=== PATIENT | male | born 1945 | race Caucasian/White ===

== ENCOUNTER 2017-11-28 14:49 | Inpatient (IN) | payer MEDICARE, OTHER ==
[~2017-11-28] VITALS: Ht 185.4 cm; Wt 82.4 kg
[~2017-11-28 14:49] MED LIST: DUTA0.5C11 PO; RIVA10TA PO; TAM04C PO
[2017-11-28] MEDS ORDERED: SODIUM CHLORIDE 0.9% 1,000 ML IV ONE (14:56)
[2017-11-28 16:15] LABS: Basophils # (auto) 0.1 uL; Basophils % (auto) 1.1 % (0.0-2.0); Eosinophils # (auto) 0.1 uL; Hematocrit 40.8 % (41.0-53.0); Hemoglobin 13.5 g/dL (13.5-17.5); Lymphocytes # (auto) 1.1 uL; Lymphocytes % (auto) 19.5 % (10.0-50.0); Mean Corpuscular Hemoglobin 32.6 pg (28.0-32.0); Mean Corpuscular Hgb Conc. 33.2 g/dL (32.0-36.0); Mean Corpuscular Volume 98.2 fL (80.0-100.0); Monocytes # (auto) 0.2 uL; Monocytes % (auto) 4.2 % (0.0-12.0); Neutrophils # (auto) 4.3 uL; Neutrophils % (auto) 74.2 % (37.0-80.0); Nucleated Red Blood Cells % 0.1 %; Platelet Count (auto) 312 10^3/uL (140-450); Red Blood Cells 4.15 10^6/uL (4.5-5.90); White Blood Cell 5.8 10^3/uL (4.4-10.8)
[2017-11-28] MEDS ORDERED: ASPirin-EC 81 mg tab PO ONE (16:15)
[2017-11-28] MEDS ORDERED: ACETAMINOPHEN 325 MG TAB PO PRN (16:15)
[2017-11-28] MEDS ORDERED: TEMAZEPAM 15 MG CAP PO PRN (16:15)
[2017-11-28] MEDS ORDERED: DOCUSATE SOD 100 MG CAP PO PRN (16:15)
[2017-11-28] MEDS ORDERED: NITROGLYCERIN 0.4 MG SL TAB SL PRN (16:15)
[2017-11-28] MEDS ORDERED: HYDROcodone-ACET 5/325MG TAB PO PRN (16:15)
[2017-11-28] MEDS ORDERED: ONDANSETRON HCL 4 MG/2 ML VIAL IV PRN (16:15)
[2017-11-28] MEDS ORDERED: MORPHINE SULFATE 10 MG/ML INJ 1ML SDV IV PRN ×2 (16:15)
[2017-11-28 16:26] LABS: Urine Bacteria NONE SEEN /hpf (None Seen); Urine Blood Negative /uL (Negative); Urine Mucus FEW (None Seen); Urine Specific Gravity 1.025 (1.001-1.035); Urine WBC 2 /hpf (0 - 3)
[2017-11-28 16:32] LABS: Alanine Aminotransferase 30 U/L (16-61); Albumin 3.1 g/dL (3.4-5.0); Anion Gap 8 (5-15); Aspartate Aminotransferase 58 U/L (15-37); BUN/Creatinine Ratio 19.7; Blood Urea Nitrogen 23 mg/dL (7-18); Carbon Dioxide 26 mmol/L (21-32); Chloride 106 mmol/L (98-107); GFR African American 78 mL/min; GFR Non-African American 65 mL/min; Glucose 105 mg/dL (74-106); Potassium 4.3 mmol/L (3.5-5.1); Sodium 140 mmol/L (136-145)
[2017-11-28 16:40] LABS: Alkaline Phosphatase 61 U/L (45-117); Bilirubin, Total 1.2 mg/dL (0.2-1.0); Total Protein 7.7 g/dL (6.4-8.2)
[2017-11-28] MEDS: TAMSULOSIN HYDROCHLORIDE 0.4 MG CAP PO SCH (17:01)
[2017-11-28] MEDS: ENOXAPARIN SOD 40 MG/0.4 ML SYRINGE SC SCH (17:01)
[2017-11-28 17:17] LABS: INR 1.11 (0.9-1.15); Prothrombin Time 12.1 sec (9.37-12.3)
[2017-11-28] MEDS: BOOST PLUS 8 ounce PO SCH (18:00)
[2017-11-28] MEDS: ATORVASTATIN 20 MG TAB PO SCH (20:38)
[2017-11-28] MEDS: SODIUM CHLOR 0.9% PF (SALINE LOCK) 10ML VIAL IV SCH (20:38)
[2017-11-28] MEDS: FAMOTIDINE 20 MG TAB PO SCH (20:38)
[2017-11-28 22:00] VITALS: BP 96/54
[2017-11-29] MEDS: SODIUM CHLOR 0.9% PF (SALINE LOCK) 10ML VIAL IV SCH ×3 (04:58→23:03)
[2017-11-29 05:37] VITALS: BP 111/59
[2017-11-29] MEDS: BOOST PLUS 8 ounce PO SCH ×3 (07:46→17:17)
[2017-11-29 08:00] VITALS: BP 136/86
[2017-11-29 09:00] VITALS: BP 136/86
[2017-11-29 09:11] LABS: Basophils # (auto) 0 uL; Basophils % (auto) 0.6 % (0.0-2.0); Eosinophils # (auto) 0 uL; Eosinophils % (auto) 0.7 % (0.0-7.0); Hematocrit 42.1 % (41.0-53.0); Hemoglobin 14.2 g/dL (13.5-17.5); Lymphocytes # (auto) 1.3 uL; Lymphocytes % (auto) 24.4 % (10.0-50.0); Mean Corpuscular Hemoglobin 32.7 pg (28.0-32.0); Mean Corpuscular Hgb Conc. 33.6 g/dL (32.0-36.0); Mean Corpuscular Volume 97.2 fL (80.0-100.0); Monocytes # (auto) 0.2 uL; Monocytes % (auto) 3.9 % (0.0-12.0); Neutrophils # (auto) 3.6 uL; Neutrophils % (auto) 70.4 % (37.0-80.0); Nucleated Red Blood Cells % 0.1 %; Platelet Count (auto) 278 10^3/uL (140-450); Red Blood Cells 4.33 10^6/uL (4.5-5.90); Red Cell Distribution Width 14.9 % (11.8-14.3); White Blood Cell 5.2 10^3/uL (4.4-10.8)
[2017-11-29 09:16] LABS: Alanine Aminotransferase 28 U/L (16-61); Albumin 3.2 g/dL (3.4-5.0); Alkaline Phosphatase 61 U/L (45-117); Anion Gap 6 (5-15); Aspartate Aminotransferase 35 U/L (15-37); BUN/Creatinine Ratio 19.7; Bilirubin, Total 1.4 mg/dL (0.2-1.0); Blood Urea Nitrogen 23 mg/dL (7-18); Calcium 8.1 mg/dL (8.5-10.1); Carbon Dioxide 27 mmol/L (21-32); Chloride 106 mmol/L (98-107); GFR African American 78 mL/min; GFR Non-African American 65 mL/min; Glucose 89 mg/dL (74-106); Potassium 4.6 mmol/L (3.5-5.1); Sodium 139 mmol/L (136-145); Total Protein 7.8 g/dL (6.4-8.2)
[2017-11-29] MEDS: FAMOTIDINE 20 MG TAB PO SCH ×3 (10:00→22:00)
[2017-11-29] MEDS: AVODART 0.5 MG PO SCH (10:00)
[2017-11-29] MEDS: MULTIPLE VITAMIN TAB PO SCH (10:04)
[2017-11-29] MEDS: ASPirin-EC 81 mg tab PO SCH (10:05)
[2017-11-29] MEDS: ENOXAPARIN SOD 40 MG/0.4 ML SYRINGE SC SCH (10:05)
[2017-11-29 13:06] VITALS: BP 146/67
[2017-11-29 17:00] VITALS: BP 141/63
[2017-11-29] MEDS: TAMSULOSIN HYDROCHLORIDE 0.4 MG CAP PO SCH (17:21)
[2017-11-29 22:00] VITALS: BP 109/71
[2017-11-29] MEDS: ATORVASTATIN 20 MG TAB PO SCH (23:03)
[2017-11-30 05:00] VITALS: BP 110/62
[2017-11-30] MEDS: SODIUM CHLOR 0.9% PF (SALINE LOCK) 10ML VIAL IV SCH ×2 (06:44→14:00)
[2017-11-30 07:13] LABS: Cholesterol 131 mg/dL (< 200); HDL Cholesterol 35 mg/dL (40-59); LDL Cholesterol 85 mg/dL (< 100); Triglycerides 119 mg/dL (< 150)
[2017-11-30] MEDS: BOOST PLUS 8 ounce PO SCH ×3 (08:00→18:00)
[2017-11-30 09:09] VITALS: BP 106/57
[2017-11-30] MEDS: ASPirin-EC 81 mg tab PO SCH (10:00)
[2017-11-30] MEDS: MULTIPLE VITAMIN TAB PO SCH (10:00)
[2017-11-30] MEDS: FAMOTIDINE 20 MG TAB PO SCH (10:00)
[2017-11-30] MEDS: AVODART 0.5 MG PO SCH (10:00)
[2017-11-30] MEDS: ENOXAPARIN SOD 40 MG/0.4 ML SYRINGE SC SCH (10:31)
[2017-11-30 11:59] VITALS: BP 105/53
[2017-11-30] MEDS ORDERED: CLOP75TA28 PO (16:20)
[2017-11-30] MEDS ORDERED: ASP81EC PO (16:20)
[2017-11-30] MEDS ORDERED: ATOR20TA50 PO (16:20)
[2017-11-30 17:28] VITALS: BP 158/92
[2017-11-30] MEDS: TAMSULOSIN HYDROCHLORIDE 0.4 MG CAP PO SCH (18:00)
== END 2017-11-30 19:00 | disposition home or self-care (01) | DRG 65 ==
LOC: EDBD 14:49 → ER 14:49 → TELE 14:50 → TELE-WESTW 18:08
PROVIDERS: ADMIT Internal Medicine; ATTEND Nurse Practitioner Acute Care
DX: I63.232 Cerebral infarction due to unspecified occlusion or stenosis of left carotid arteries (principal); E44.0 Moderate protein-calorie malnutrition; R65.10 Systemic inflammatory response syndrome (SIRS) of non-infectious origin without acute organ dysfunction; G81.91 Hemiplegia, unspecified affecting right dominant side; E83.51 Hypocalcemia; C94.6 Myelodysplastic disease, not elsewhere classified; D63.8 Anemia in other chronic diseases classified elsewhere; N18.2 Chronic kidney disease, stage 2 (mild); Z96.651 Presence of right artificial knee joint; N40.0 Benign prostatic hyperplasia without lower urinary tract symptoms; Z79.82 Long term (current) use of aspirin; Z79.899 Other long term (current) drug therapy; Z82.49 Family history of ischemic heart disease and other diseases of the circulatory system; Z80.0 Family history of malignant neoplasm of digestive organs; Z68.24 Body mass index [BMI] 24.0-24.9, adult
CPT/HCPCS: 36415; 70450; 70551; 71045; 80053; 80061; 81001; 83880; 84443; 84484; 85025; 85610; 85730; 92610; 93005; 93306; 93886; 96372

== ENCOUNTER 2019-05-03 05:44 | Emergency (ER) | payer MEDICARE, OTHER ==
[~2019-05-03] VITALS: Ht 175.3 cm; Wt 68.0 kg
[~2019-05-03 05:44] MED LIST changes: +ASP81EC PO; +ATOR20TA50 PO; +CLOP75TA28 PO; -RIVA10TA PO
[2019-05-03 07:40] VITALS: BP 141/68
[2019-05-03] MEDS ORDERED: KETOROLAC TROMETH 60MG/2ML VIAL IM ONE (08:00)
[2019-05-03] MEDS: CARISOPRODOL 350 MG TAB PO ONE (08:28)
[2019-05-03] MEDS: KETOROLAC TROMETH 15 mg/ml 1ML VL IV ONE (08:29)
== END 2019-05-03 09:41 | disposition home or self-care (01) ==
LOC: ER 05:44
DX: M51.37 Other intervertebral disc degeneration, lumbosacral region (principal); Z79.01 Long term (current) use of anticoagulants; Z79.82 Long term (current) use of aspirin; Z79.899 Other long term (current) drug therapy
CPT/HCPCS: 72100; 96374; 99283; J1885

== ENCOUNTER 2019-08-06 11:16 | Day surgery (SDC) | payer MEDICARE, OTHER ==
[2019-08-02 13:42] LABS: Basophils # (auto) 0.1 uL; Eosinophils # (auto) 0 uL; Monocytes # (auto) 0.4 uL; Monocytes % (auto) 6.9 % (0.0-12.0); Neutrophils # (auto) 3.4 uL
[2019-08-02 13:43] LABS: Basophils % (auto) 1.1 % (0.0-2.0); Hematocrit 31.5 % (41.0-53.0); Lymphocytes # (auto) 1.6 uL; Lymphocytes % (auto) 29.8 % (10.0-50.0); Neutrophils % (auto) 62.2 % (37.0-80.0); Platelet Count (auto) 168 10^3/uL (140-450); Red Blood Cells 3.25 10^6/uL (4.5-5.90); Red Cell Distribution Width 15.8 % (11.8-14.3); White Blood Cell 5.5 10^3/uL (4.4-10.8)
[2019-08-02 13:53] LABS: INR 1.11 (0.9-1.15); Partial Thromboplastin Time 28.7 sec (23.64-32.05)
[~2019-08-06] VITALS: Ht 177.8 cm; Wt 72.6 kg
[~2019-08-06 11:16] MED LIST changes: -ASP81EC PO; -ATOR20TA50 PO; +CELE200C PO; -CLOP75TA28 PO; +LEVO25TA6 PO
[2019-08-06] MEDS: fentaNYL CITRATE 100 MCG/2 ML VL ONE ×3 (12:52→12:59)
[2019-08-06] MEDS: MIDAZOLAM HCL 5 MG/ML-1ML VIAL ONE ×3 (12:52→12:59)
[2019-08-06 13:49] VITALS: BP 124/58
[2019-08-06] MEDS ORDERED: SODIUM CHLORIDE LOCK 10 ML ONE (14:36)
[2019-08-06] MEDS ORDERED: diphenhdrAMINE HCL 50 MG/1 ML VL ONE (14:37)
== END 2019-08-06 14:03 | disposition home or self-care (01) ==
LOC: GI 11:16
PROVIDERS: ATTEND Internal Medicine Gastroenterology
DX: R10.31 Right lower quadrant pain (principal); R63.4 Abnormal weight loss; K57.30 Diverticulosis of large intestine without perforation or abscess without bleeding; K64.8 Other hemorrhoids; E03.9 Hypothyroidism, unspecified; N40.0 Benign prostatic hyperplasia without lower urinary tract symptoms; D64.9 Anemia, unspecified; M81.0 Age-related osteoporosis without current pathological fracture; M19.90 Unspecified osteoarthritis, unspecified site; Z79.899 Other long term (current) drug therapy; Z96.642 Presence of left artificial hip joint; Z96.651 Presence of right artificial knee joint
CPT/HCPCS: 36415; 45378; 85025; 85610; 85730; J1200; J2250; J3010; J7030; G0500

== ENCOUNTER 2024-12-12 13:11 | Inpatient (IN) | payer MEDICARE, BC ==
[~2024-12-12] VITALS: Ht 177.8 cm; Wt 72.6 kg
[~2024-12-12 13:11] MED LIST changes: -TAM04C PO; +TAMS-35 PO
--- NOTE | 2024-12-12 16:14 | ED.PDOC ---
Chasidy. trauma (HPI) HPI Comments HPI: Poor Historian. HPI: 79 y/o M presents to the ED for CC of right leg pain. Patient endorses on, falling approximately four days ago from a mechanical trip and fall landing on his right side. Patient relays, abrasion to right temporal area. Patient denies LOC, hitting his head, headache, or shortness of breath. No other symptoms or modifying factors at this time. Initial Vital Signs: Temp : 97.9 BP: 136/68 HR: 72 RR: 16 SpO2: 98 Past Medical History: HLD, ENLARGED SPLEEN, HTN, SHINGLES, MULTIPLE MYELOMA Past Surgical History: RIGHT KNEE LEFT HIP Social History: Denies smoking, ETOH, or drug use. Allergies: NKDA REVIEW OF SYSTEMS: CONSTITUTIONAL: Denies acute: fever, diaphoresis, chills, HEAD: Denies acute: headache, photophobia Eyes: Denies acute: Double vision, vision loss, eye pain, eye discharge. EARS: Denies acute: tinnitus, hearing loss, ear discharge, ear pain, THROAT: Denies acute: sore throat, swelling, difficulty swallowing , pain with swallowing, change in voice. NECK: Denies acute: neck pain, neck swelling, stiff neck. HEART: Denies acute : chest pain, palpitations, LUNGS: Denies acute: SOB, wheezing, cough, hemoptysis ABDOMEN: Denies acute: abdominal pain, Nausea, Vomiting, diarrhea, melena , hematemesis, hematochezia SKIN: Denies acute: rash, redness, lesions, itchiness. EXTREMITIES: Denies acute: calf pain, numbness, tingling, weakness, Denies acute: Low back pain. Neuro: Denies acute: focal neurological deficit, motor or sensory focal neurological deficit, tremors, seizure like activity, confusion, dizziness, change in mental status, loss of bowel or bladder function, cauda equina like symptoms. : Denies acute: dysuria, hematuria, flank pain, increase in urinary frequency. PSYCH: Denies acute: hallucination, suicidal ideation, homicidal ideation. PHYSICAL EXAM: General: no acute distress, awake and alert. Head: normocephalic, atraumatic. Minimal right zygomatic arch bruise. Neck: supple, trachea is midline, no swelling. Cervical spine: Palpation of the posterior midline of the cervical spine rev eals no focal swelling, erythema, focal tenderness to palpation. Patient has normal range of motion. Throat: Normal phonation. Eyes:, no erythema, no purulent discharge, no proptosis, no icterus. Heart: regular rate, regular rhythm, no significant murmur appreciated. Lungs: no apparent respiratory distress, Able to speak in full sentences. No wheezing, no rhonchi, no crackles. No stridors Clear to auscultation bilaterally. Abdomen: non tender to palpation, non distended, soft, no guarding, no rebound, + bowel sounds. Neuro: Awake, Alert, oriented to name, self, situation, follows commands GCS=15. Speech is normal. Skin: no petechia, no purpura, no cyanosis, non-pale, not jaundice. Lower extremities: --trace bilateral- Pitting edema no deformity, no focal swelling, no calf TTP. Patient is neurovascularly intact in the affected right lower extremity. Pedal pulses palpable. Motor and sensory are present. Decreased range of motion secondary to right leg pain. No apparent hematoma at the side of the hip. Makes eye contact. moves all four extremities. Face: no apparent facial droop. Ambulating in the ED independently but with pain. No nuchal rigidity, Kernig's sign, Brudzinski's sign, no meningeal signs. ED COURSE: Time Seen by MD: 16:00 Primary Care Provider: ETTA Pack notes: Nurses Notes, Allergies Allergies: Coded Allergies: NO KNOWN ALLERGIES (Unverified , 08/02/19) Home Meds Reported Medications Oxycodone W/ Acetaminophen (Percocet 5/325MG) 1 Tab Tb, 1 TAB PO Q6HR PRN for PAIN SCALE 1 THRU 6, #60 TAB 12/13/24 Gabapentin (NEURONTIN CAPSULE) 300 Mg Cp, 300 MG PO TID, CAP 12/13/24 Levothyroxine Sodium (Levothyroxine Sodium) 100 Mcg Tab, 100 MCG PO QAM for 30 Days, MCG 12/13/24 Metoprolol Succinate (Metoprolol Succinate Er) 25 Mg Tab, 25 MG PO DAILY for 30 Days, MG 12/13/24 Tamsulosin Hcl (Tamsulosin Hcl) 0.4 Mg Cap, 0.4 MG PO EOD for 30 Days, MG 12/13/24 Acyclovir (Acyclovir) 200 Mg Cap, 400 MG PO BID, TAB 12/13/24 Pravastatin Sodium (PRAVACHOL TABLET) 20 Mg Tb, 20 MG PO HS, TAB 12/13/24 Dutasteride (Avodart) 0.5 Mg Cap, 0.5 MG PO EOD, CAP 12/13/24 Discontinued Reported Medications Levothyroxine Sodium (Levothyroxine Sodium) 25 Mcg Tab, 25 MCG PO QAM, MCG 08/02/19 Celecoxib (Celebrex) 200 Mg Cap, 1 CAP PO DAILY PRN for MODERATE PAIN, #30 CAP 2 Refills 08/02/19 Tamsulosin Hcl (Flomax) 0.4 Mg Cap, 5 MG PO DAILY for ANTIADRENERGICS, CAP 02/25/16 Dutasteride (Avodart) 0.5 Mg Cap, 5 MG PO DAILY for ANDROGEN INHIBITORS, CAP 02/25/16 Information Source: Patient, Relative (Child) Mode of Arrival: Wheelchair Severity: Moderate Timing: Days Duration: Since onset Prehospital treatment: None Location: (R) Leg Location of laceration: Face Mechanism: Fall Associated signs and symtoms: None Was a procedure done? Was a procedure done?: No Differential Diagnosis Multiple Trauma: Closed Head Injury, Cardiac Injury, Fractures, Intraabdominal Injury, Pneumothorax, Cerebral Contusion, Pulmonary Contusion, Spine Injury, Tracheal Injury, Urological Injury, Vascular Injury, Abrasions, Contusion, Hematoma Neck Injury: Cervical Muscle Spasm, Cervical Sprain, Cervical Strain X-Ray, Labs, Meds, VS Vital Signs Date Time Temp Pulse Resp B/P (MAP) Pulse Ox O2 Delivery O2 Flow Rate FiO2 12/12/24 22:00 71 18 113/62 (79) 99 12/12/24 20:00 69 12/12/24 19:20 73 18 95 Room Air* 0 21 12/12/24 19:20 98.1 73 18 90/68 (75) 95 98.1 12/12/24 16:58 97.9 72 16 138/68 (91) 98 12/12/24 16:50 73 16 97 Room Air* 0 21 12/12/24 16:50 97.8 73 16 132/61 (84) 97 97.8 Lab Test 12/12/24 20:18 12/12/24 19:25 12/12/24 18:57 12/12/24 18:14 Range/Units Troponin I High Sensitivity 9 9 </=54 ng/L Lactic Acid Level 2.4 *H 0.4-2.0 mmol/L Urine Color Yellow Yellow Urine Clarity Clear Clear Urine pH 5.0 5.0-9.0 Urine Specific [place] 1.025 1.001-1.035 Urine Protein Negative Negative Urine Ketones Negative Negative Urine Blood Negative Negative /uL Urine Nitrite Negative Negative Urine Bilirubin Negative Negative Urine Urobilinogen Normal Negative mg/dL Urine Leukocyte Esterase Negative Negative /uL Urine RBC 1 0 - 3 /hpf Urine Microscopic WBC < 1 0-3 /HPF Urine Squamous Epithelial Cells Few <5 /hpf Urine Bacteria None seen None Seen /hpf Urine Mucus Few None Seen Urine Glucose Normal Normal mg/dL Test 12/12/24 17:06 Range/Units White Blood Count 2.8 L 4.4-10.8 10^3/uL Red Blood Count 3.78 L 4.5-5.90 10^6/uL Hemoglobin 13.4 L 13.5-17.5 g/dL Hematocrit 39.5 L 41.0-53.0 % Mean Corpuscular Volume 104.4 H 80.0-100.0 fL Mean Corpuscular Hemoglobin 35.3 H 28.0-32.0 pg Mean Corpuscular Hemoglobin Concent 33.9 32.0-36.0 g/dL Red Cell Distribution Width 15.4 H 11.8-14.3 % Platelet Count 121 L 140-450 10^3/uL Mean Platelet Volume 8.4 6.9-10.8 fL Neutrophils (%) (Auto) 76.7 37.0-80.0 % Lymphocytes (%) (Auto) 18.4 10.0-50.0 % Monocytes (%) (Auto) 4.7 0.0-12.0 % Eosinophils (%) (Auto) 0.0 0.0-7.0 % Basophils (%) (Auto) 0.2 0.0-2.0 % Neutrophils # (Auto) 2.1 1.6-8.6 10 ^3/uL Lymphocytes # (Auto) 0.5 0.4-5.4 10 ^3/uL Monocytes # (Auto) 0.1 0-1.3 10 ^3/uL Eosinophils # (Auto) 0 0-0.8 10 ^3/uL Basophils # (Auto) 0 0-0.2 10 ^3/uL Nucleated Red Blood Cells 0.1 % Sodium Level 137 136-145 mmol/L Potassium Level 4.9 3.5-5.1 mmol/L Chloride Level 103 98-107 mmol/L Carbon Dioxide Level 25 20-31 mmol/L Anion Gap 9 5-15 Blood Urea Nitrogen 38 H 9-23 mg/dL Creatinine 1.08 0.700-1.30 mg/dL Glomerular Filtration Rate Calc 69 >90 mL/min BUN/Creatinine Ratio 35.2 H 10.0-20.0 Serum Glucose 138 H 74-106 mg/dL Lactic Acid Level 2.1 *H 0.4-2.0 mmol/L Calcium Level 9.3 8.7-10.4 mg/dL Magnesium Level 2.2 1.6-2.6 mg/dL Total Bilirubin 2.4 H 0.2-1.0 mg/dL Aspartate Amino Transferase (AST) 24 13-40 U/L Alanine Aminotransferase (ALT) 30 7-40 U/L Alkaline Phosphatase 60 46-116 U/L Troponin I High Sensitivity 8 </=54 ng/L B-Type Natriuretic Peptide 248.68 0-100 pg/mL Total Protein 6.1 5.7-8.2 g/dL Albumin 4.3 3.2-4.8 g/dL Current Medications Medications (Trade) Dose Ordered Sig/Marcella Route Start Time Stop Time Status Last Admin Sodium Chloride 1,000 ml @ 1,000 mls/hr Q1H ONCE IV 12/12/24 18:45 12/12/24 19:44 DC 12/12/24 18:52 Piperacillin Sod/ Tazobactam Sod 100 ml @ 100 mls/hr ONCE ONCE IV 12/12/24 20:30 12/12/24 21:29 DC 12/12/24 21:18 Sodium Chloride 1,000 ml @ 1,000 mls/hr Q1H ONCE IV 12/12/24 20:30 12/12/24 21:29 DC 12/12/24 21:18 Sodium Chloride 1,000 ml @ 60 mls/hr [id number] IV 12/12/24 20:45 12/12/24 21:[address] [address] Ph: [phone] DIAGNOSTIC IMAGING Diagnostic Imaging Report : [id number] Signed PATIENT: JUANITA AHUJA ACCT: [id number] UNIT: [id number] : 1945 LOC: ER ROOM / BED: / AGE / SEX: 79 / M ADM STATUS: REG ER SERVICE 03 ORDERING PHYSICIAN: NIRANJAN HANSON DO PROCEDURE(s): CXRP - CHEST PORTABLE REASON: fall, r chest pain ORDER NUMBER(s): [id number], ACCESSION NUMBER(s): [id number] CHEST RADIOGRAPH Indication: fall, r chest pain Technique: Single frontal view of the chest was obtained Comparison: None FINDINGS: Lines and Tubes: None Lungs: No focal consolidation. Mild interstitial prominence. Pleura: No effusion. No pneumothorax. Cardiomediastinal contours: Unremarkable Bones: No acute osseous abnormality. There appears to be sclerosis with deformity of the left posterior and posterolateral 9th rib. Sclerotic focus of the right proximal humerus. Severe degenerative changes of the right glenohumeral joint with severe narrowing of the right acromial humeral interval. IMPRESSION: Mild interstitial prominence which may be due to fibrotic changes/ pulmonary v ascular congestion. There appears to be sclerosis with deformity of the left posterior and posterolateral 9th rib. Sclerotic focus of the right proximal humerus. Correlate for possible metastatic lesions. ATED BY: IVANIA ENAMORADO DO DICTATED DATE/TIME: 12/12/241632 SIGNED BY: IVANIA ENAMORADO DO SIGNED DATE/TIME: 12/12/241632 CC: [address] [address] Ph: [phone] DIAGNOSTIC IMAGING Diagnostic Imaging Report : [id number] Signed PATIENT: JUANITA AHUJA ACCT: [id number] UNIT: [id number] : 1945 LOC: ER ROOM / BED: / AGE / SEX: 79 / M ADM STATUS: REG ER SERVICE 160 ORDERING PHYSICIAN: NIRANJAN HANSON DO PROCEDURE(s): HWOCT - HEAD WITHOUT CONTRAST REASON: fall ORDER NUMBER(s): [id number], ACCESSION NUMBER(s): [id number] EXAM: CT HEAD WITHOUT CONTRAST HISTORY: fall COMPARISON: None TECHNIQUE: Axial images of the head were obtained and reformatted in coronal and sagittal planes. All CT scans at this medical facility are performed using dose modulation techniques as appropriate to a performed exam including the following: Automated exposure control was utilized; adjustment of the MA and/or KV according to patient size; and use of iterative reconstruction technique. CT Dose: CTDI volume is 53 mGy. Dose-length product is 852 mGy*cm FINDINGS: There is age concordant parenchymal volume loss. There is no evidence of acute intracranial hemorrhage, mass, mass effect midline shift. There is no hydrocephalus or extra-axial fluid collection. There is a small chronic infarct in the posterior right cerebellum. There are few additional small chronic infarcts noted in the right cerebellum. The hancock-white matter differentiation otherwise appears maintained. The visualized paranasal sinuses and mastoid air cells are clear. The calvarium is intact. IMPRESSION: 1. No acute intracranial process. 2. Chronic right cerebellar infarcts as noted above. HS:Y ATED BY: TEO WALDRON MD DICTATED DATE/TIME: 12/12/241636 SIGNED BY: TEO WALDRON MD SIGNED DATE/TIME: 12/12/241636 CC: [place] [address] Ph: [phone] DIAGNOSTIC IMAGING Diagnostic Imaging Report : [id number] Signed PATIENT: JUANITA AHUJA ACCT: [id number] UNIT: [id number] : 1945 LOC: ER ROOM / BED: / AGE / SEX: 79 / M ADM STATUS: REG ER SERVICE 1604 ORDERING PHYSICIAN: NIRANJAN HANSON DO PROCEDURE(s): ABPL - CT AB PEL WO CON-NO ORAL OR IV REASON: fall, R hip pain ORDER NUMBER(s): [id number], ACCESSION NUMBER(s): [id number] Procedure: CT CT AB PEL WO CON-NO ORAL OR IV 12/12/2024 04:19 PM Indication: fall, R hip pain Comparison Study: None Technique: Axial images were obtained and reformatted in coronal and sagittal planes. All CT scans at this medical facility are performed using dose modulation techniques as appropriate to a performed exam including the following: Automated exposure control was utilized; adjustment of the MA and/or KV according to pa tient size; and use of iterative reconstruction technique. CT Dose: CTDI volume is 8.26 mGy. Dose-length product is 447.31 mGy*cm FINDINGS: Lower Chest: Unremarkable. Hepatobiliary: Unremarkable. Spleen: Moderate splenomegaly, 18 cm in craniocaudal. Pancreas: Unremarkable. Adrenal Glands: Unremarkable. tract: The kidneys are normal in size bilaterally without hydronephrosis or nephrolithiasis. Focal cortical scarring in midpole of the right kidney. Several small cysts are seen in the upper pole of the right kidney measuring up to 1.5 cm. The urinary bladder is unremarkable. GI tract: The stomach is grossly normal in appearance. No evidence of small bowel obstruction. The large bowel is unremarkable. The appendix is not visualized. No inflammatory change is noted in the right lower quadrant. Lymphatics: No mesenteric, retroperitoneal or periportal lymphadenopathy. Vasculature: Aorta is normal in caliber. Scattered calcified plaques are noted. Pelvic Organs: Unremarkable Bones/soft tissues: Acute impacted basicervical right femoral fracture noted. Diffusely demineralized bones. Heterogeneous appearance of the osseous structures concern for infiltrative lesion. Lytic, mildly expansile lesion involving the posterolateral aspect of the left 9th rib. The bilateral hip joints are maintained. Total left hip arthroplasty. Moderate right hip joint osteoarthritis. Pelvic bones are intact. No definite sacral fracture. 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 Compression deformities of T11-L5 noted most prominent at T12 with approximately 80% loss of height centrally and anteriorly without retropulsion. Diffuse osteopenia noted. Multilevel degenerative disc disease and posterior facet arthropathy of the lumbar spine. Other: None. IMPRESSION: 1. Acute impacted right femoral basicervical fracture, possibly pathologic fracture. 2. Diffuse osteopenia with mottled appearance of the bones concerning for diffuse underlying marrow disease such as multiple myeloma or lytic metastasis. 3. Lytic, mildly expansile lesion of the posterolateral aspect of the left 9th rib. 4. Moderate splenomegaly. ATED BY: YAIMA KABA MD DICTATED DATE/TIME: 12/12/24 1646 SIGNED BY: YAIMA KABA MD SIGNED DATE/TIME: 12/12/24 164 CC: [address] [address] Ph: [phone] DIAGNOSTIC IMAGING Diagnostic Imaging Report : [id number] Signed PATIENT: JUANITA AHUJA ACCT: [id number] UNIT: [id number] : 1945 LOC: ER ROOM / BED: / AGE / SEX: 79 / M ADM STATUS: REG ER SERVICE 1604 ORDERING PHYSICIAN: NIRANJAN HANSON DO PROCEDURE(s): RFEM - R FEMUR XRAY REASON: fall pain ORDER NUMBER(s): [id number], ACCESSION NUMBER(s): [id number] CLINICAL INDICATION: fall pain TECHNIQUE: 4 radiographic views of the right femur were obtained. Comparison: None FINDINGS/IMPRESSION: There is acute impacted right femoral neck fracture. The femoral head remains within the acetabulum. Small lytic lesions involving the femoral diaphysis. Right total knee replacement with intact hardware. ATED BY: IVANIA ENAMORADO DO DICTATED DATE/TIME: 12/12/241649 SIGNED BY: IVANIA ENAMORADO DO SIGNED DATE/TIME: 12/12/241649 CC: Time of 1ST Reevaluation: 16:30 Reevaluation 1ST: Unchanged Time of 2ND Reevaluation: 03:03 Reevaluation 2ND: Improved Patient Education/Counseling: Diagnosis, Treatment Family Education/Counseling: Diagnosis, Treatment Comments Patient presented with the above HPI.---right leg pain---workup was initiated. patient was found with the above mentioned diagnosis. the following medications were ordered: please refer to order lists of meds and tests obtained by myself Dr. Hanson. Patient ED course and VS have been stabilized. Patient has been reassessed in the ED and remained in a stable condition. Pertinent incidental findings were discussed with the patient and/or family. Patient/family voices understanding and is agreeable with plan. Patient has been observed in the ED adequate length of time to insure improvement/stability. Escalation of care considered: Consideration of escalation to observation or admission Patient was ADMITTED to the medicine team for further evaluation and treatment of their presentation. Patient remained neurovascularly intact. All the reports of any imaging studies that were ordered by myself were reviewed by myself. Departure 1 Departure Time of Disposition: 17:18 Impression: Primary Impression: Closed displaced fracture of right femoral neck Additional Impressions: Basicervical fracture of neck of right femur Multiple myeloma Thrombocytopenia Elevated lactic acid level Disposition: ADMITTED INPATIENT Admit to: Tele Condition: Guarded Additional Instructions: [place] [address] Ph: [phone] DIAGNOSTIC IMAGING Diagnostic Imaging Report : [id number] Signed PATIENT: JUANITA AHUJA ACCT: [id number] UNIT: [id number] : 1945 LOC: ER ROOM / BED: / AGE / SEX: 79 / M ADM STATUS: REG ER SERVICE 1604 ORDERING PHYSICIAN: NIRANJAN HANSON DO PROCEDURE(s): CXRP - CHEST PORTABLE REASON: fall, r chest pain ORDER NUMBER(s): [id number], ACCESSION NUMBER(s): [id number] CHEST RADIOGRAPH Indication: fall, r chest pain Technique: Single frontal view of the chest was obtained Comparison: None FINDINGS: Lines and Tubes: None Lungs: No focal consolidation. Mild interstitial prominence. Pleura: No effusion. No pneumothorax. Cardiomediastinal contours: Unremarkable Bones: No acute osseous abnormality. There appears to be sclerosis with deformity of the left posterior and posterolateral 9th rib. Sclerotic focus of the right proximal humerus. Severe degenerative changes of the right glenohu meral joint with severe narrowing of the right acromial humeral interval. IMPRESSION: Mild interstitial prominence which may be due to fibrotic changes/ pulmonary vascular congestion. There appears to be sclerosis with deformity of the left posterior and posterolateral 9th rib. Sclerotic focus of the right proximal humerus. Correlate for possible metastatic lesions. ATED BY: IVANIA ENAMORADO DO DICTATED DATE/TIME: 12/12/24 1633 SIGNED BY: IVANIA ENAMORADO DO SIGNED DATE/TIME: 12/12/24 1633 CC: [place] [address] Ph: [phone] DIAGNOSTIC IMAGING Diagnostic Imaging Report : [id number] Signed PATIENT: JUANITA AHUJA ACCT: [id number] UNIT: [id number] : 1945 LOC: ER ROOM / BED: / AGE / SEX: 79 / M ADM STATUS: REG ER SERVICE 1604 ORDERING PHYSICIAN: NIRANJAN HANSON DO PROCEDURE(s): HWOCT - HEAD WITHOUT CONTRAST REASON: fall ORDER NUMBER(s): [id number], ACCESSION NUMBER(s): [id number] EXAM: CT HEAD WITHOUT CONTRAST HISTORY: fall COMPARISON: None TECHNIQUE: Axial images of the head were obtained and reformatted in coronal and sagittal planes. All CT scans at this medical facility are performed using dose modulation techniques as appropriate to a performed exam including the following: Automated exposure control was utilized; adjustment of the MA and/or KV according to patient size; and use of iterative reconstruction technique. CT Dose: CTDI volume is 53 mGy. Dose-length product is 852 mGy*cm FINDINGS: There is age concordant parenchymal volume loss. There is no evidence of acute intracranial hemorrhage, mass, mass effect midline shift. There is no hydrocephalus or extra-axial fluid collection. There is a small chronic infarct in the posterior right cerebellum. There are few additional small chronic infarcts noted in the right cerebellum. The hancock-white matter differentiation otherwise appears maintained. The visualized paranasal sinuses and mastoid air cells are clear. The calvarium is intact. IMPRESSION: 1. No acute intracranial process. 2. Chronic right cerebellar infarcts as noted above. HS:Y ATED BY: TEO WALDRON MD DICTATED DATE/TIME: 12/12/241636 SIGNED BY: TEO WALDRON MD SIGNED DATE/TIME: 12/12/241636 CC: [address] [address] Ph: [phone] DIAGNOSTIC IMAGING Diagnostic Imaging Report : [id number] Signed PATIENT: JUANITA AHUJA ACCT: [id number] UNIT: [id number] : 1945 LOC: ER ROOM / BED: / AGE / SEX: 79 / M ADM STATUS: REG ER SERVICE 1604 ORDERING PHYSICIAN: NIRANJAN HANSON DO PROCEDURE(s): ABPL - CT AB PEL WO CON-NO ORAL OR IV REASON: fall, R hip pain ORDER NUMBER(s): [id number], ACCESSION NUMBER(s): [id number] Procedure: CT CT AB PEL WO CON-NO ORAL OR IV 12/12/2024 04:19 PM Indication: fall, R hip pain Comparison Study: None Technique: Axial images were obtained and reformatted in coronal and sagittal planes. All CT scans at this medical facility are performed using dose modulation techniques as appropriate to a performed exam including the following: Automated exposure control was utilized; adjustment of the MA and/or KV according to patient size; and use of iterative reconstruction technique. CT Dose: CTDI volume is 8.26 mGy. Dose-length product is 447.31 mGy*cm FINDINGS: Lower Chest: Unremarkable. Hepatobiliary: Unremarkable. Spleen: Moderate splenomegaly, 18 cm in craniocaudal. Pancreas: Unremarkable. Adrenal Glands: Unremarkable. tract: The kidneys are normal in size bilaterally without hydronephrosis or nephrolithiasis. Focal cortical scarring in midpole of the right kidney. Several small cysts are seen in the upper pole of the right kidney measuring up to 1.5 cm. The urinary bladder is unremarkable. GI tract: The stomach is grossly normal in appearance. No evidence of small bowel obstruction. The large bowel is unremarkable. The appendix is not visualized. No inflammatory change is noted in the right lower quadrant. Lymphatics: No mesenteric, retroperitoneal or periportal lymphadenopathy. Vasculature: Aorta is normal in caliber. Scattered calcified plaques are noted. Pelvic Organs: Unremarkable Bones/soft tissues: Acute impacted basicervical right femoral fracture noted. Diffusely demineralized bones. Heterogeneous appearance of the osseous structures concern for infiltrative lesion. Lytic, mildly expansile lesion involving the posterolateral aspect of the left 9th rib. The bilateral hip joints are maintained. Total left hip arthroplasty. Moderate right hip joint osteoarthritis. Pelvic bones are intact. No definite sacral fracture. 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 Compression deformities of T11-L5 noted most prominent at T12 with approximately 80% loss of height centrally and anteriorly without retropulsion. Diffuse osteopenia noted. Multilevel degenerative disc disease and posterior facet arthropathy of the lumbar spine. Other: None. IMPRESSION: 1. Acute impacted right femoral basicervical fracture, possibly pathologic f racture. 2. Diffuse osteopenia with mottled appearance of the bones concerning for diffuse underlying marrow disease such as multiple myeloma or lytic metastasis. 3. Lytic, mildly expansile lesion of the posterolateral aspect of the left 9th rib. 4. Moderate splenomegaly. ATED BY: YAIMA KABA MD DICTATED DATE/TIME: 12/12/241645 SIGNED BY: YAIMA KABA MD SIGNED DATE/TIME: 12/12/241645 CC: [place] [address] Ph: [phone] DIAGNOSTIC IMAGING Diagnostic Imaging Report : [id number] Signed PATIENT: JUANITA AHUJA ACCT: [id number] UNIT: [id number] : 1945 LOC: ER ROOM / BED: / AGE / SEX: 79 / M ADM STATUS: REG ER SERVICE 1604 ORDERING PHYSICIAN: NIRANJAN HANSON DO PROCEDURE(s): RFEM - R FEMUR XRAY REASON: fall pain ORDER NUMBER(s): [id number], ACCESSION NUMBER(s): [id number] CLINICAL INDICATION: fall pain TECHNIQUE: 4 radiographic views of the right femur were obtained. Comparison: None FINDINGS/IMPRESSION: There is acute impacted right femoral neck fracture. The femoral head remains within the acetabulum. Small lytic lesions involving the femoral diaphysis. Right total knee replacement with intact hardware. ATED BY: IVANIA ENAMORADO DO DICTATED DATE/TIME: 12/12/241649 SIGNED BY: IVANIA ENAMORADO DO SIGNED DATE/TIME: 12/12/241649 CC: Discharged With: Self Critical Care Note Critical Care Time?: Yes (45 min-critical care time only) I personally scribed for NIRANJAN HANSON DO ([email or web address]) on 12/12/24 at 16:14. Electronically submitted by Sydney Mckeon ([email or web address]). I personally scribed for NIRANJAN HANSON DO ([email or web address]) on 12/12/24 at 17:10. Electronically submitted by Sydney Mckeon ([email or web address]). I personally scribed for NIRANJAN HANSON DO ([email or web address]) on 12/12/24 at 17:12. Electronically submitted by Sydney Mckeon ([email or web address]). I personally scribed for NIRANJAN HANSON DO ([email or web address]) on 12/12/24 at 17:13. Electronically submitted by Sydney Mckeon ([email or web address]). I personally scribed for NIRANJAN HANSON DO ([email or web address]) on 12/12/24 at 17:17. Electronically submitted by Sydney Mckeon ([email or web address]). NIRANJAN HANSON DO Dec 12, 2024 16:14
--- NOTE | 2024-12-12 16:36 | DVH ---
CHEST RADIOGRAPH Indication: fall, r chest pain Technique: Single frontal view of the chest was obtained Comparison: None FINDINGS: Lines and Tubes: None Lungs: No focal consolidation. Mild interstitial prominence. Pleura: No effusion. No pneumothorax. Cardiomediastinal contours: Unremarkable Bones: No acute osseous abnormality. There appears to be sclerosis with deformity of the left posteri or and posterolateral 9th rib. Sclerotic focus of the right proximal humerus. Severe degenerative shawanda nges of the right glenohumeral joint with severe narrowing of the right acromial humeral interval. IMPRESSION: Mild interstitial prominence which may be due to fibrotic changes/ pulmonary vascular congestion. There appears to be sclerosis with deformity of the left posterior and posterolateral 9th rib. Sclero tic focus of the right proximal humerus. Correlate for possible metastatic lesions.
--- NOTE | 2024-12-12 16:39 | DVH ---
EXAM: CT HEAD WITHOUT CONTRAST HISTORY: fall COMPARISON: None TECHNIQUE: Axial images of the head were obtained and reformatted in coronal and sagittal planes. All CT scans at this medical facility are performed using dose modulation techniques as appropriate t o a performed exam including the following: Automated exposure control was utilized; adjustment of th e MA and/or KV according to patient size; and use of iterative reconstruction technique. CT Dose: CTDI volume is 53 mGy. Dose-length product is 852 mGy*cm FINDINGS: There is age concordant parenchymal volume loss. There is no evidence of acute intracranial hemorrhag e, mass, mass effect midline shift. There is no hydrocephalus or extra-axial fluid collection. There is a small chronic infarct in the posterior right cerebellum. There are few additional small chroni c infarcts noted in the right cerebellum. The hancock-white matter differentiation otherwise appears sage ntained. The visualized paranasal sinuses and mastoid air cells are clear. The calvarium is intact. IMPRESSION: 1. No acute intracranial process. 2. Chronic right cerebellar infarcts as noted above. HS:Y
--- NOTE | 2024-12-12 16:48 | DVH ---
Procedure: CT CT AB PEL WO CON-NO ORAL OR IV 12/12/2024 04:19 PM Indication: fall, R hip pain Comparison Study: None Technique: Axial images were obtained and reformatted in coronal and sagittal planes. All CT scans at this medical facility are performed using dose modulation techniques as appropriate t o a performed exam including the following: Automated exposure control was utilized; adjustment of th e MA and/or KV according to patient size; and use of iterative reconstruction technique. CT Dose: CTDI volume is 8.26 mGy. Dose-length product is 447.31 mGy*cm FINDINGS: Lower Chest: Unremarkable. Hepatobiliary: Unremarkable. Spleen: Moderate splenomegaly, 18 cm in craniocaudal. Pancreas: Unremarkable. Adrenal Glands: Unremarkable. tract: The kidneys are normal in size bilaterally without hydronephrosis or nephrolithiasis. Focal cortical scarring in midpole of the right kidney. Several small cysts are seen in the upper pole of the right kidney measuring up to 1.5 cm. The urinary bladder is unremarkable. GI tract: The stomach is grossly normal in appearance. No evidence of small bowel obstruction. The la rge bowel is unremarkable. The appendix is not visualized. No inflammatory change is noted in the ri ght lower quadrant. Lymphatics: No mesenteric, retroperitoneal or periportal lymphadenopathy. Vasculature: Aorta is normal in caliber. Scattered calcified plaques are noted. Pelvic Organs: Unremarkable Bones/soft tissues: Acute impacted basicervical right femoral fracture noted. Diffusely demineralized bones. Heterogeneous appearance of the osseous structures concern for infiltrative lesion. Lytic, mi ldly expansile lesion involving the posterolateral aspect of the left 9th rib. The bilateral hip join ts are maintained. Total left hip arthroplasty. Moderate right hip joint osteoarthritis. Pelvic bones are intact. No definite sacral fracture. Anterolisthesis of L4 on L5 due to bilateral L4 pars defect s. Compression deformities of T11-L5 noted most prominent at T12 with approximately 80% loss of heigh t centrally and anteriorly without retropulsion. Diffuse osteopenia noted. Multilevel degenerative disc disease and posterior facet arthropathy of the lumbar spine. Other: None. IMPRESSION: 1. Acute impacted right femoral basicervical fracture, possibly pathologic fracture. 2. Diffuse osteopenia with mottled appearance of the bones concerning for diffuse underlying marrow d isease such as multiple myeloma or lytic metastasis. 3. Lytic, mildly expansile lesion of the posterolateral aspect of the left 9th rib. 4. Moderate splenomegaly.
[2024-12-12 16:50] VITALS: PULSE 73; RESP 16; O2SAT 97
--- NOTE | 2024-12-12 16:52 | DVH ---
CLINICAL INDICATION: fall pain TECHNIQUE: 4 radiographic views of the right femur were obtained. Comparison: None FINDINGS/IMPRESSION: There is acute impacted right femoral neck fracture. The femoral head remains within the acetabulum. Small lytic lesions involving the femoral diaphysis. Right total knee replacement with intact hardwa re.
[2024-12-12 17:28] LABS: Basophils # (auto) 0 10 ^3/uL (0-0.2); Basophils % (auto) 0.2 % (0.0-2.0); Eosinophils # (auto) 0 10 ^3/uL (0-0.8); Hematocrit 39.5 % (41.0-53.0); Hemoglobin 13.4 g/dL (13.5-17.5); Lymphocytes # (auto) 0.5 10 ^3/uL (0.4-5.4); Lymphocytes % (auto) 18.4 % (10.0-50.0); Mean Corpuscular Hemoglobin 35.3 pg (28.0-32.0); Mean Corpuscular Hgb Conc. 33.9 g/dL (32.0-36.0); Mean Corpuscular Volume 104.4 fL (80.0-100.0); Monocytes # (auto) 0.1 10 ^3/uL (0-1.3); Monocytes % (auto) 4.7 % (0.0-12.0); Neutrophils # (auto) 2.1 10 ^3/uL (1.6-8.6); Neutrophils % (auto) 76.7 % (37.0-80.0); Nucleated Red Blood Cells % 0.1 %; Platelet Count (auto) 121 10^3/uL (140-450); Red Blood Cells 3.78 10^6/uL (4.5-5.90); Red Cell Distribution Width 15.4 % (11.8-14.3); White Blood Cell 2.8 10^3/uL (4.4-10.8)
[2024-12-12 17:45] LABS: Alanine Aminotransferase 30 U/L (7-40); Albumin 4.3 g/dL (3.2-4.8); Alkaline Phosphatase 60 U/L (46-116); Anion Gap 9 (5-15); Aspartate Aminotransferase 24 U/L (13-40); BUN/Creatinine Ratio 35.2 (10.0-20.0); Calcium 9.3 mg/dL (8.7-10.4); Carbon Dioxide 25 mmol/L (20-31); Chloride 103 mmol/L (98-107); Magnesium 2.2 mg/dL (1.6-2.6); Potassium 4.9 mmol/L (3.5-5.1); Sodium 137 mmol/L (136-145); Total Protein 6.1 g/dL (5.7-8.2)
[2024-12-12 17:46] LABS: Bilirubin, Total 2.4 mg/dL (0.2-1.0); Blood Urea Nitrogen 38 mg/dL (9-23); Glucose 138 mg/dL (74-106)
[2024-12-12 18:42] LABS: Lactic Acid w/Reflex 2.1 mmol/L (0.4-2.0)
[2024-12-12] MEDS: SODIUM CHLORIDE 0.9% 1,000 ML IV ONE ×2 (18:52→21:18)
[2024-12-12] MEDS: fentaNYL CITRATE 100 MCG/2 ML VL IV ONE (18:57)
[2024-12-12 18:58] LABS: Urine Bacteria None Seen /hpf (None Seen)
[2024-12-12 19:10] LABS: Urine Blood Negative /uL (Negative); Urine Clarity Clear (Clear); Urine Color Yellow (Yellow); Urine Mucus FEW (None Seen); Urine Protein, UAD Negative (Negative); Urine Specific Gravity 1.025 (1.001-1.035); Urine Squamous Epithelial Cell FEW /hpf (<5); Urine Urobilinogen Normal (Negative); Urine WBC < 1 /HPF (0-3)
[2024-12-12 19:20] VITALS: PULSE 73; RESP 18; O2SAT 95
[2024-12-12] MEDS ORDERED: ACETAMINOPHEN 325 MG TAB PO PRN (20:45)
[2024-12-12] MEDS ORDERED: ONDANSETRON HCL 4 MG/2 ML VIAL IV PRN (20:45)
[2024-12-12] MEDS: PIPERACILLIN-TAZOB 3.375GM 100 ML IV ONE (21:18)
[2024-12-12] MEDS: SODIUM CHLORIDE 0.9% 1,000 ML IV SCH (21:18)
--- NOTE | 2024-12-12 22:29 | DVHHP2 ---
History of Present Illness Reason for Visit: Right femur fracture History of Present Illness The patient is a 79-year-old male with multiple past medical history including shingle, multiple myeloma, and hypertension presented to [facility] ED with complaint of right leg pain. Patient reports he fell a proximally 4 days ago landing on his right side of the hip with sustained abrasion to the right temporal area. Patient did not seek immediate medical intervention. Patient was seen and evaluated in the ED, laboratory data shows WBC 2 five platelets 121, sodium 137, potassium 4.9, BUN 38, creatinine 1.08, GFR 69, glucose 138, total bilirubin 2.4, BNP 248.68, lactic acid 2.4, troponin 8, blood pressure 90/68, heart rate 73, temperature 98.1 F, O2 saturation 95% on room air. Right femur x-ray revealing acute impacted right femoral neck fracture. Please see medication orders section in the computer. On my assessment, patient denied chest pain, no headache, no dizziness, no diaphoresis, no loss of consciousness, no shortness of breaths, no nausea, no vomiting, no fever, no chills. Patient was admitted for further evaluation and medical management. Past Medical History HLD, Enlarged spleen, Shingle, Multiple myeloma, HTN. Past Surgical History Right knee, Left hip surgery. Family History Reviewed, noncontributory to the management of this case. Past Social History The patient lives at home, denies smoking, alcohol or illicit drugs abuse. Review of Systems Constitutional: Yes: Weakness; No: Fever, Chills, Sweats, Malaise, Other Eyes: No: Pain, Vision change, Conjunctivae inflammation, Eyelid inflammation, Other, Redness ENT: No: Ear pain, Ear discharge, Nose pain, Nose discharge, Nose congestion, Mouth pain, Mouth swelling, Throat pain, Throat swelling, Other Respiratory: No: Cough, Dry, Shortness of breath, SOB with excertion, Wheezing, Hemoptysis, Pleuritic Pain, Sputum, Wheezing, Other Cardiovascular: No: Chest Pain, Palpitations, Orthopnea, Paroxysmal Noc. Dyspnea, Edema, Lt Headedness, Other Gastrointestinal: No: Nausea, Vomiting, Abdominal Pain, Diarrhea, Constipation, Melena, Hematochezia, Other Genitourinary: No Dysuria, No Frequency, No Incontinence, No Hematuria, No Retention, No Other Musculoskeletal: other (Right hip pain); No: neck pain, shoulder pain, arm pain, back pain, hand pain, leg pain, foot pain Skin: No: Rash, Lesions, Jaundice, Bruising, Other Neurological: No: Weakness, Numbness, Incoordination, Change in speech, Confusion, Seizures, Other Allergies: Coded Allergies: NO KNOWN ALLERGIES (Unverified , 08/02/19) Medications Current Medications Medications Dose Ordered Sig/Marcella Route Start Time Stop Time Status Last Admin Dose Admin Tamsulosin HCl 0.4 mg QPM PO 12/13/24 18:00 Ceftriaxone Sodium 50 ml @ 100 mls/hr DAILY@09 IV 12/13/24 09:00 Levothyroxine Sodium 25 mcg QAM@0600 PO 12/13/24 06:00 Sodium Chloride 1,000 ml @ 60 mls/hr [id number] IV 12/12/24 20:45 12/12/24 21:18 60 MLS/HR Acetaminophen/ Hydrocodone Bitart 1 tab Q4HP PRN PO 12/12/24 20:45 Ondansetron HCl 4 mg Q4HP PRN IV 12/12/24 20:45 Docusate Sodium 100 mg BIDPRN PRN PO 12/12/24 20:45 Enoxaparin Sodium 30 mg DAILY SC 12/13/24 10:00 Acetaminophen 650 mg Q6HP PRN PO 12/12/24 20:45 Exam Vital Signs Vital Signs Date Time Temp Pulse Resp B/P (MAP) Pulse Ox O2 Delivery O2 Flow Rate FiO2 12/12/24 19:20 73 18 95 Room Air* 0 21 12/12/24 19:20 98.1 90/68 (75) 98.1 General Appearance: Alert, Oriented X3, Cooperative, No acute distress HEENT: Atraumatic, PERRLA, EOMI, Mucous membr. moist/pink Respiratory: Clear to auscultation, Normal air movement Cardiovascular: Regular rate, Normal S1, Normal S2, No murmurs Abdominal: Normal bowel sounds, Soft, No tenderness, No hepatospenomegaly, No masses Extremities: No clubbing, No cyanosis, No edema, Normal pulses, Other (Right hip tenderness) Skin: No rashes, No breakdown, No significant lesion Neuro: Normal speech, Normal tone, Sensation intact, Cranial nerves 3-12 NL, Reflexes 2+, Other (Generalized weakness) Psych/Mental Status: Mental status NL, Mood NL Labs/Xrays Labs Test 12/12/24 20:18 12/12/24 19:25 12/12/24 18:57 12/12/24 17:06 Range/Units Troponin I High Sensitivity 9 </=54 ng/L Lactic Acid Level 2.4 *H 0.4-2.0 mmol/L Urine Color Yellow Yellow Urine Clarity Clear Clear Urine pH 5.0 5.0-9.0 Urine Specific [place] 1.025 1.001-1.035 Urine Protein Negative Negative Urine Ketones Negative Negative Urine Blood Negative Negative /uL Urine Nitrite Negative Negative Urine Bilirubin Negative Negative Urine Urobilinogen Normal Negative mg/dL Urine Leukocyte Esterase Negative Negative /uL Urine RBC 1 0 - 3 /hpf Urine Microscopic WBC < 1 0-3 /HPF Urine Squamous Epithelial Cells Few <5 /hpf Urine Bacteria None seen None Seen /hpf Urine Mucus Few None Seen Urine Glucose Normal Normal mg/dL White Blood Count 2.8 L 4.4-10.8 10^3/uL Red Blood Count 3.78 L 4.5-5.90 10^6/uL Hemoglobin 13.4 L 13.5-17.5 g/dL Hematocrit 39.5 L 41.0-53.0 % Mean Corpuscular Volume 104.4 H 80.0-100.0 fL Mean Corpuscular Hemoglobin 35.3 H 28.0-32.0 pg Mean Corpuscular Hemoglobin Concent 33.9 32.0-36.0 g/dL Red Cell Distribution Width 15.4 H 11.8-14.3 % Platelet Count 121 L 140-450 10^3/uL Mean Platelet Volume 8.4 6.9-10.8 fL Neutrophils (%) (Auto) 76.7 37.0-80.0 % Lymphocytes (%) (Auto) 18.4 10.0-50.0 % Monocytes (%) (Auto) 4.7 0.0-12.0 % Eosinophils (%) (Auto) 0.0 0.0-7.0 % Basophils (%) (Auto) 0.2 0.0-2.0 % Neutrophils # (Auto) 2.1 1.6-8.6 10 ^3/uL Lymphocytes # (Auto) 0.5 0.4-5.4 10 ^3/uL Monocytes # (Auto) 0.1 0-1.3 10 ^3/uL Eosinophils # (Auto) 0 0-0.8 10 ^3/uL Basophils # (Auto) 0 0-0.2 10 ^3/uL Nucleated Red Blood Cells 0.1 % Sodium Level 137 136-145 mmol/L Potassium Level 4.9 3.5-5.1 mmol/L Chloride Level 103 98-107 mmol/L Carbon Dioxide Level 25 20-31 mmol/L Anion Gap 9 5-15 Blood Urea Nitrogen 38 H 9-23 mg/dL Creatinine 1.08 0.700-1.30 mg/dL Glomerular Filtration Rate Calc 69 >90 mL/min BUN/Creatinine Ratio 35.2 H 10.0-20.0 Serum Glucose 138 H 74-106 mg/dL Calcium Level 9.3 8.7-10.4 mg/dL Magnesium Level 2.2 1.6-2.6 mg/dL Total Bilirubin 2.4 H 0.2-1.0 mg/dL Aspartate Amino Transferase (AST) 24 13-40 U/L Alanine Aminotransferase (ALT) 30 7-40 U/L Alkaline Phosphatase 60 46-116 U/L B-Type Natriuretic Peptide 248.68 0-100 pg/mL Total Protein 6.1 5.7-8.2 g/dL Albumin 4.3 3.2-4.8 g/dL PATIENT: JUANITA AHUJA ACCT: [id number] UNIT: [id number] : 1945 LOC: ER ROOM / BED: / AGE / SEX: 79 / M ADM STATUS: REG ER SERVICE 1604 ORDERING PHYSICIAN: NIRANJAN HANSON DO PROCEDURE(s): ABPL - CT AB PEL WO CON-NO ORAL OR IV REASON: fall, R hip pain ORDER NUMBER(s): [id number], ACCESSION NUMBER(s): [id number] Procedure: CT CT AB PEL WO CON-NO ORAL OR IV 12/12/2024 04:19 PM Indication: fall, R hip pain Comparison Study: None Technique: Axial images were obtained and reformatted in coronal and sagittal planes. All CT scans at this medical facility are performed using dose modulation techniques as appropriate to a performed exam including the following: Automated exposure control was utilized; adjustment of the MA and/or KV according to patient size; and use of iterative reconstruction technique. CT Dose: CTDI volume is 8.26 mGy. Dose-length product is 447.31 mGy*cm FINDINGS: Lower Chest: Unremarkable. Hepatobiliary: Unremarkable. Spleen: Moderate splenomegaly, 18 cm in craniocaudal. Pancreas: Unremarkable. Adrenal Glands: Unremarkable. tract: The kidneys are normal in size bilaterally without hydronephrosis or nephrolithiasis. Focal cortical scarring in midpole of the right kidney. Several small cysts are seen in the upper pole of the right kidney measuring up to 1.5 cm. The urinary bladder is unremarkable. GI tract: The stomach is grossly normal in appearance. No evidence of small bowel obstruction. The large bowel is unremarkable. The appendix is not visualized. No inflammatory change is noted in the right lower quadrant. Lymphatics: No mesenteric, retroperitoneal or periportal lymphadenopathy. Vasculature: Aorta is normal in caliber. Scattered calcified plaques are noted. Pelvic Organs: Unremarkable Bones/soft tissues: Acute impacted basicervical right femoral fracture noted. Diffusely demineralized bones. Heterogeneous appearance of the osseous structures concern for infiltrative lesion. Lytic, mildly expansile lesion involving the posterolateral aspect of the left 9th rib. The bilateral hip joints are maintained. Total left hip arthroplasty. Moderate right hip joint osteoarthritis. Pelvic bones are intact. No definite sacral fracture. 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 Compression deformities of T11-L5 noted most prominent at T12 with approximately 80% loss of height centrally and anteriorly without retropulsion. Diffuse osteopenia noted. Multilevel degenerative disc disease and posterior facet arthropathy of the lumbar spine. Other: None. IMPRESSION: 1. Acute impacted right femoral basicervical fracture, possibly pathologic fracture. 2. Diffuse osteopenia with mottled appearance of the bones concerning for diffuse underlying marrow disease such as multiple myeloma or lytic metastasis. 3. Lytic, mildly expansile lesion of the posterolateral aspect of the left 9th rib. 4. Moderate splenomegaly. ORDERING PHYSICIAN: NIRANJAN HANSON DO PROCEDURE(s): HWOCT - HEAD WITHOUT CONTRAST REASON: fall ORDER NUMBER(s): [id number], ACCESSION NUMBER(s): [id number] EXAM: CT HEAD WITHOUT CONTRAST HISTORY: fall COMPARISON: None TECHNIQUE: Axial images of the head were obtained and reformatted in coronal and sagittal planes. All CT scans at this medical facility are performed using dose modulation techniques as appropriate to a performed exam including the following: Automated exposure control was utilized; adjustment of the MA and/or KV according to patient size; and use of iterative reconstruction technique. CT Dose: CTDI volume is 53 mGy. Dose-length product is 852 mGy*cm FINDINGS: There is age concordant parenchymal volume loss. There is no evidence of acute intracranial hemorrhage, mass, mass effect midline shift. There is no hydrocephalus or extra-axial fluid collection. There is a small chronic infarct in the posterior right cerebellum. There are few additional small chronic infarcts noted in the right cerebellum. The hancock-white matter differentiation otherwise appears maintained. The visualized paranasal sinuses and mastoid air cells are clear. The calvarium is intact. IMPRESSION: 1. No acute intracranial process. 2. Chronic right cerebellar infarcts as noted above. ORDERING PHYSICIAN: NIRANJAN HANSON DO PROCEDURE(s): RFEM - R FEMUR XRAY REASON: fall pain ORDER NUMBER(s): [id number], ACCESSION NUMBER(s): [id number] CLINICAL INDICATION: fall pain TECHNIQUE: 4 radiographic views of the right femur were obtained. Comparison: None FINDINGS/IMPRESSION: There is acute impacted right femoral neck fracture. The femoral head remains within the acetabulum. Small lytic lesions involving the femoral diaphysis. Right total knee replacement with intact hardware. Assessment/Plan Assessment/Plan Closed displaced fracture of right femoral neck Multiple myeloma Thrombocytopenia Elevated lactic acid level Basicervical fracture of neck of right femur Plan 1. Admit to telemetry unit 2. Breathing treatment 3. Pain control management 4. IV antibiotic management 5. Management of fluids and electrolytes 6. Consultation for orthopedic 7. Diagnostic test right femur x-ray 8. DVT prophylaxis-on Lovenox 9. Repeat labs CBC, CMP in a.m. 10. Home medication reviewed and reconciled 11. Continue with current medical management 12. Treatment plan discussed with patient and RN. Patient verbalized understanding. Plan discussed with: Patient, Other (RN) My Orders Orders - BARBRA TAYLOR DNP Procedure Category Date Status Time Tamsulosin PHA 12/13/24 In Process Hydrochloride (Flomax) 18:00 Ceftriaxone 1gm/50ml PHA 12/13/24 In Process D5w (Rocephin) 09:00 Levothyroxine Tablet PHA 12/13/24 In Process (Synthroid Tablet) 06:00 * Orthopedic Consult CONS 12/12/24 Transmitted 20:39 Allergies ASIA 12/12/24 In Process 20:39 Code Status CODE 12/12/24 Transmitted 20:39 Sodium Chloride 0.9% PHA 12/12/24 In Process 20:45 Oxygen Per Hour RT 12/12/24 Transmitted 20:39 Hydrocodone-Acet PHA 12/12/24 In Process 5/325mg Tab ([place] 20:45 Ondansetron Hcl PHA 12/12/24 In Process (Zofran) 20:45 Docusate Sodium PHA 12/12/24 In Process Capsule (Colace 20:45 Fall Risk Precautions ASIA 12/12/[address] 20:39 Complete Blood Count LAB 12/13/24 Verified 04:00 Comprehensive LAB 12/13/24 Verified Metabolic Panel 04:00 Cardiac DIET 12/13/24 Transmitted Diet-2gna,Lofat,Lochol Breakfast Condition: Serious ASIA 12/12/24 In Process 20:39 Enoxaparin Sodium PHA 12/13/24 In Process (Lovenox) 10:00 Acetaminophen Tablet PHA 12/12/24 In Process (Tylenol Tablet) 20:45 Sequential ASIA 12/12/24 In Process Compression Device Problem List: (1) Closed displaced fracture of right femoral neck (2) Multiple myeloma (3) Thrombocytopenia (4) Elevated lactic acid level (5) Basicervical fracture of neck of right femur Date of Service: Dec 12, 2024 Billing Provider: BARBRA TAYLOR DNP Common Visit Codes: [id number] INP/OBS CARE (HIGH) BARBRA TAYOLR DNP Dec 12, 2024 22:29
[2024-12-12] MEDS ORDERED: MORPHINE SULFATE INJ 2 MG/ml SYRG IV PRN (22:30)
[2024-12-12] MEDS ORDERED: NITROGLYCERIN 0.4 MG SL TAB SL PRN (22:30)
[2024-12-13] VITALS (10 sets, daily range): BP systolic 112–128; BP diastolic 47–70; PULSE 55–69; RESP 16–20; TEMP 97.6–99.1; O2SAT 94–99
[2024-12-13] MEDS ORDERED: TAMS0.4C39 PO (02:25)
[2024-12-13] MEDS ORDERED: GABA-1254 PO (02:25)
[2024-12-13] MEDS ORDERED: LEVO100T8 PO (02:25)
[2024-12-13] MEDS ORDERED: DUTA0.5C11 PO (02:25)
[2024-12-13] MEDS ORDERED: METO25TA93 PO (02:25)
[2024-12-13] MEDS ORDERED: PERCOT PO (02:25)
[2024-12-13] MEDS ORDERED: ACYC200C22 PO (02:25)
[2024-12-13] MEDS ORDERED: PRAV20TA3 PO (02:25)
[2024-12-13] MEDS: LEVOTHYROXINE SODIUM 25 MCG TAB PO SCH (05:36)
[2024-12-13] MEDS: cefTRIAXone 1GM/50ML D5W 50 ML IV SCH (08:26)
[2024-12-13] MEDS: ENOXAPARIN SOD 30 MG/0.3 ML SYRINGE SC SCH (08:27)
[2024-12-13 11:59] LABS: Alanine Aminotransferase 26 U/L (7-40); Albumin 3.6 g/dL (3.2-4.8); Alkaline Phosphatase 47 U/L (46-116); Anion Gap 8 (5-15); Aspartate Aminotransferase 17 U/L (13-40); BUN/Creatinine Ratio 31.5 (10.0-20.0); Carbon Dioxide 26 mmol/L (20-31); Glucose 76 mg/dL (74-106); Potassium 3.8 mmol/L (3.5-5.1); Sodium 143 mmol/L (136-145)
[2024-12-13 12:03] LABS: Basophils # (auto) 0 10 ^3/uL (0-0.2); Eosinophils # (auto) 0 10 ^3/uL (0-0.8); Lymphocytes # (auto) 0.7 10 ^3/uL (0.4-5.4); Monocytes # (auto) 0.2 10 ^3/uL (0-1.3); Platelet Count (auto) 89 10^3/uL (140-450)
[2024-12-13 12:08] LABS: Basophils % (auto) 0.2 % (0.0-2.0); Eosinophils % (auto) 0.2 % (0.0-7.0); Hematocrit 34.3 % (41.0-53.0); Hemoglobin 11.6 g/dL (13.5-17.5); Lymphocytes % (auto) 36.5 % (10.0-50.0); Mean Corpuscular Hemoglobin 35.5 pg (28.0-32.0); Mean Corpuscular Hgb Conc. 33.9 g/dL (32.0-36.0); Mean Corpuscular Volume 104.6 fL (80.0-100.0); Monocytes % (auto) 8.8 % (0.0-12.0); Neutrophils % (auto) 54.3 % (37.0-80.0); Red Blood Cells 3.28 10^6/uL (4.5-5.90); Red Cell Distribution Width 15.3 % (11.8-14.3)
[2024-12-13 12:10] LABS: Bilirubin, Total 1.5 mg/dL (0.2-1.0); Blood Urea Nitrogen 28 mg/dL (9-23); Calcium 8.1 mg/dL (8.7-10.4); Chloride 109 mmol/L (98-107); Total Protein 5.2 g/dL (5.7-8.2)
--- NOTE | 2024-12-13 12:21 | DVHPN2 ---
Reviewed: Care Plan, H&P, Labs, Medications, Previous Orders, Radiology Changes from previous H/P or p: No Changes Objective Vitals Vital Signs Date Time Temp Pulse Resp B/P (MAP) Pulse Ox O2 Delivery O2 Flow Rate FiO2 12/13/24 09:00 97.7 60 19 114/59 (77) 96 97.7 12/13/24 08:00 Room Air* 0 21 Intake/Output Intake and Output 12/13/24 07:00 Intake Total 2220 ml Output Total 490 ml Balance 1730 ml IV Total 2220 ml Output Urine Total 490 ml Medications Current Medications Medications Dose Ordered Sig/Marcella Route Start Time Stop Time Status Last Admin Dose Admin Tamsulosin HCl 0.4 mg QPM PO 12/13/24 18:00 Ceftriaxone Sodium 50 ml @ 100 mls/hr DAILY@09 IV 12/13/24 09:00 12/13/24 08:26 100 MLS/HR Levothyroxine Sodium 25 mcg QAM@0600 PO 12/13/24 06:00 12/13/24 05:36 25 MCG Sodium Chloride 1,000 ml @ 60 mls/hr [id number] IV 12/12/24 20:45 12/12/24 21:18 60 MLS/HR Acetaminophen/ Hydrocodone Bitart 1 tab Q4HP PRN PO 12/12/24 20:45 Ondansetron HCl 4 mg Q4HP PRN IV 12/12/24 20:45 Docusate Sodium 100 mg BIDPRN PRN PO 12/12/24 20:45 Enoxaparin Sodium 30 mg DAILY SC 12/13/24 10:00 12/13/24 08:27 30 MG Acetaminophen 650 mg Q6HP PRN PO 12/12/24 20:45 Nitroglycerin 0.4 mg Q5MINP PRN SL 12/12/24 22:30 Morphine Sulfate 2 mg Q30M PRN IV 12/12/24 22:30 Laboratory Results Chemistry Test 12/12/24 17:06 12/13/24 10:06 Albumin 4.3 g/dL (3.2-4.8) Pending Calcium Level 9.3 mg/dL (8.7-10.4) Pending Magnesium Level 2.2 mg/dL (1.6-2.6) Total Protein 6.1 g/dL (5.7-8.2) Pending Cardiac Markers Test 12/12/24 17:06 B-Type Natriuretic Peptide 248.68 pg/mL (0-100) LFT Test 12/12/24 17:06 12/13/24 10:06 Alanine Aminotransferase (ALT) 30 U/L (7-40) Pending Alkaline Phosphatase 60 U/L (46-116) Pending Aspartate Amino Transferase (AST) 24 U/L (13-40) Pending Total Bilirubin 2.4 mg/dL (0.2-1.0) H Pending Urinalysis Test 12/12/24 18:57 Urine Color Yellow (Yellow) Urine Clarity Clear (Clear) Urine pH 5.0 (5.0-9.0) Urine Specific [place] 1.025 (1.001-1.035) Urine Protein Negative (Negative) Urine Ketones Negative (Negative) Urine Blood Negative /uL (Negative) Urine Nitrite Negative (Negative) Urine Bilirubin Negative (Negative) Urine Urobilinogen Normal mg/dL (Negative) Urine Leukocyte Esterase Negative /uL (Negative) Urine RBC 1 /hpf (0 - 3) Urine Microscopic WBC < 1 /HPF (0-3) Urine Squamous Epithelial Cells Few /hpf (<5) Urine Bacteria None seen /hpf (None Seen) Urine Mucus Few (None Seen) Urine Glucose Normal mg/dL (Normal) Labs and/or images reviewed: Labs reviewed by me, Image(s) reviewed by me Assessment/Plan Assessment/Plan Fracture neck right femur: Consult for orthopedic, morphine for pain Mechanical fall BPH: Flomax Dehydration with BUN and creatinine 38 and 1.08: IV fluids Possible urinary tract infection: Rocephin Hypothyroidism: Synthroid\ History of multiple myeloma: Gets weekly injections from Dr. Teressa Pinzon H/O Left hip arthroplasty by Dr. Larsen 2017 H/O right knee surgery [address] Zain Conroy Time Spent 55 minutes Patient is full code Advanced care planning time 20 minutes Plan discussed with: Patient Date of Service: Dec 13, 2024 Billing Provider: JACOBO GALVAN MD Common Visit Codes: [id number] INP/OBS CARE(HIGH) Secondary Visit Codes: [id number] CARE PLAN 30 MINUTES JACOBO GALVAN MD Dec 13, 2024 12:21
[2024-12-13 12:28] LABS: White Blood Cell 1.9 10^3/uL (4.4-10.8)
[2024-12-13 14:14] LABS: Band Neutrophils % (manual) 0; Basophils % (manual) 0 (0.0-2.0); Blast Cells 0; Eosinophils % (manual) 0 (0-7); Metamyelocytes % 0; Myelocytes % 0; Promyelocytes % 0; Reactive Lymphocytes 0
[2024-12-13 14:19] LABS: Lymphocytes % (manual) 41 (10.0-50.0); Monocytes % (manual) 6 (0-12)
[2024-12-13 14:20] LABS: Macrocytosis Slight; Ovalocytes FEW; Platelet Estimate Decreased; Tear Drop Cells FEW
--- NOTE | 2024-12-13 14:45 | ECG ---
[facility] Test Date: 2024-12-13 Test Time: 14:43:16 Pat Name: JUANITA AHUJA Department: Room: 0277T A Gender: M Collateral Clerk: GB : 1945 Requested By: BRADY CAMARENA Order Number: [id number] Reading MD: Jorge Watknis Measurements Intervals [place] Rate: 68 P: 48 CA: 212 QRS: -24 QRSD: 112 T: 19 QT: 425 QTc: 453 Interpretive Statements Sinus rhythm Ventricular premature complex Borderline prolonged CA interval Abnormal R-wave progression, early transition Left ventricular hypertrophy Borderline T abnormalities, inferior leads Electronically Signed On 12-14-2024 19:35:49 PST by Jorge Watkins Please click the below link to view image of tracing.
[2024-12-13] MEDS: TAMSULOSIN HYDROCHLORIDE 0.4 MG CAP PO SCH (17:56)
--- NOTE | 2024-12-13 18:11 | DVHSR ---
APPROVED REPORT EXAM: Two-dimensional and M-mode echocardiogram with Doppler and color Doppler. Blood Pressure: 120/47 mmHg INDICATION Pre-Op RISK FACTORS Height: 5'10", Weight: 169 DIMENSIONS LVDd5.6 (3.8-5.7cm)LA (2D)4.7 (1.9-4.0cm)Aortic Root3.3 (2.0-3.7cm) LVDs4.1 (2.5-4.0cm)LA (MM) (1.9-4.0cm)Aortic Cusp Exc0.5 (1.5-2.0cm) EF (%) 51.0 (55-70%)Rt. Atrium4.5 (1.9-4.0cm)Asc. Aorta cm IVSd1.2 (0.7-1.1cm)RV (D) (1.8-2.4cm) Mitral Valve MitralMitral Stenosis E wave0.70m/sMV Mean GR.mmHg A wave0.99m/sMV Peak GR.mmHg E/A ratio0.72D MVAcm2 DECEL [id number] 1/2 Timems Aortic Valve Aortic ValveAortic Stenosis V11.02m/Tristen Mean GR.18mmHg V22.68m/Tristen Peak GR.29mmHg LVOT Diameter2.3 (1.8-2.4cm)Doppler AVA1.58cm2 AI P 1/2 [id number] Other Information Quality : Technically LimitedRhythm : Technically limited study due to patient position, unable to ly on left side. Conclusion Left ventricle: Concentric left ventricular hypertrophy was seen. LVEF was 40-45%. Inferior hypoki nesis was observed. Right ventricle was mildly dilated with normal systolic function. Both atria were mildly dilated. Aortic valve was not well visualized. Mild aortic stenosis/aortic insufficiency was observed. There was mild mitral regurgitation. There was no tricuspid regurgitation. Pulmonary valve was not well v isualized. IVC was mildly dilated. As there was no could tricuspid regurgitation jet, right ventricular systoli c pressure could not be estimated. There was no pericardial effusion.
--- NOTE | 2024-12-13 19:22 | DVHINCON2 ---
Date of service: Dec 13, 2024 History of Present Illness HPI Patient is a 79-year-old gentleman who presented to the hospital after mechanical fall. He was cooking dinner and turned badly and found himself on the floor. He mentions that he did have some right-sided lower ext discomfort. Few days later he decided to come to the hospital as he was unable to ambulate as usual. In emergency room and since admission, the patient is found to have right femoral neck fracture. Cardiology is involved for cardiac aspects of care and risk stratification prior to possible orthopedic surgery. Patient is known to our practice from outside. Patient is known to have old history of myocardial infarction (nuclear stress test of July 2023 had reported myocardial infarction in [place] Patient denies any chest pains. Patient denies loss of consciousness. Patient also has history of arrhythmia/PVCs/NSVT/SVT as outpatient. It is of note that the patient does have history of multiple myeloma and goes to hematology/oncology regularly (Dr. Gannon). Home Meds Reported Medications Oxycodone W/ Acetaminophen (Percocet 5/325MG) 1 Tab Tb, 1 TAB PO Q6HR PRN for PAIN SCALE 1 THRU 6, #60 TAB 12/13/24 Gabapentin (NEURONTIN CAPSULE) 300 Mg Cp, 300 MG PO TID, CAP 12/13/24 Levothyroxine Sodium (Levothyroxine Sodium) 100 Mcg Tab, 100 MCG PO QAM for 30 Days, MCG 12/13/24 Metoprolol Succinate (Metoprolol Succinate Er) 25 Mg Tab, 25 MG PO DAILY for 30 Days, MG 12/13/24 Tamsulosin Hcl (Tamsulosin Hcl) 0.4 Mg Cap, 0.4 MG PO EOD for 30 Days, MG 12/13/24 Acyclovir (Acyclovir) 200 Mg Cap, 400 MG PO BID, TAB 12/13/24 Pravastatin Sodium (PRAVACHOL TABLET) 20 Mg Tb, 20 MG PO HS, TAB 12/13/24 Dutasteride (Avodart) 0.5 Mg Cap, 0.5 MG PO EOD, CAP 12/13/24 Discontinued Reported Medications Levothyroxine Sodium (Levothyroxine Sodium) 25 Mcg Tab, 25 MCG PO QAM, MCG 08/02/19 Celecoxib (Celebrex) 200 Mg Cap, 1 CAP PO DAILY PRN for MODERATE PAIN, #30 CAP 2 Refills 08/02/19 Tamsulosin Hcl (Flomax) 0.4 Mg Cap, 5 MG PO DAILY for ANTIADRENERGICS, CAP 02/25/16 Dutasteride (Avodart) 0.5 Mg Cap, 5 MG PO DAILY for ANDROGEN INHIBITORS, CAP 02/25/16 Past Medical History Others Past medical history includes hypertension, hyperlipidemia, multiple myeloma, hypothyroidism, BPH, old history of shingles, old history of CVA (2016), peripheral artery disease, old history of abnormal LFT and also history of PVC/arrhythmia/SVT/NSVT. Patient Family History: Cancer of colon G8 FATHER, Onset:60 years & older Family history: Autoimmune disease (situation) G8 BROTHER Family history: Cardiovascular disease G8 MOTHER, Onset:60 years & older (CHF) Smoker: No Hx (Negative) Alocohol: None Drugs: None Review of Systems Constitutional: No symptom reported Ears, Nose, & Throat: No symptom reported Eyes: No symptom reported Cardiovascular: No symptom reported All Other Systems 14 point review of system was performed. Relevant findings as per above and as per HPI. Otherwise negative. H&P Exam Vital Signs Vital Signs Date Time Temp Pulse Resp B/P (MAP) Pulse Ox O2 Delivery O2 Flow Rate FiO2 12/13/24 17:00 98.6 69 18 128/56 (80) 99 98.6 12/13/24 08:00 Room Air* 0 21 General Appeara: Well developed Head Exam: Normal inspection Eye Exam: bilateral eye PERRL Mouth: Normal Inspection Pulmonary/Respiratory: Normal inspection Cardiovascular/Chest: Normal inspection, Regular rate, Systolic murmur Peripheral Pulses: 2+ carotid (R), 2+ carotid (L), 2+ femoral (R), 2+ femoral (L), 2+ dorsalis pedis (R), 2+ dorsalis pedis (L), 2+ Radial (R) Abdominal Exam: Normal bowel sounds, Soft Neuro/Mental St: Alert, Oriented Appearance: Appropriate appearance Eye contact/ Speech: Cooperative Labs/Xrays Labs Test 12/13/24 10:06 12/12/24 20:18 12/12/24 19:25 12/12/24 18:57 Range/Units White Blood Count 1.9 #L 4.4-10.8 10^3/uL Red Blood Count 3.28 L 4.5-5.90 10^6/uL Hemoglobin 11.6 L 13.5-17.5 g/dL Hematocrit 34.3 #L 41.0-53.0 % Mean Corpuscular Volume 104.6 H 80.0-100.0 fL Mean Corpuscular Hemoglobin 35.5 H 28.0-32.0 pg Mean Corpuscular Hemoglobin Concent 33.9 32.0-36.0 g/dL Red Cell Distribution Width 15.3 H 11.8-14.3 % Platelet Count 89 L 140-450 10^3/uL Mean Platelet Volume 9.0 6.9-10.8 fL Neutrophils (%) (Auto) 54.3 37.0-80.0 % Lymphocytes (%) (Auto) 36.5 10.0-50.0 % Monocytes (%) (Auto) 8.8 0.0-12.0 % Eosinophils (%) (Auto) 0.2 0.0-7.0 % Basophils (%) (Auto) 0.2 0.0-2.0 % Neutrophils # (Auto) 1.0 L 1.6-8.6 10 ^3/uL Lymphocytes # (Auto) 0.7 0.4-5.4 10 ^3/uL Monocytes # (Auto) 0.2 0-1.3 10 ^3/uL Eosinophils # (Auto) 0 0-0.8 10 ^3/uL Basophils # (Auto) 0 0-0.2 10 ^3/uL Differential Total Cells Counted 100.0 100 Neutrophils % (Manual) 53 37.0-80.0 Band Neutrophils % (Manual) 0 Lymphocytes % (Manual) 41 10.0-50.0 Monocytes % (Manual) 6 0-12 Eosinophils % (Manual) 0 0-7 Basophils % (Manual) 0 0.0-2.0 Metamyelocytes % (manual) 0 Myelocytes % (Manual) 0 Promyelocytes % (Manual) 0 Blast Cells % (Manual) 0 Nucleated Red Blood Cells % Reactive Lymphocytes 0 Platelet Estimate Decreased Macrocytosis Slight Tear Drop Cells Few Ovalocytes Few Laquita Cells Few Schistocytes Few Sodium Level 143 # 136-145 mmol/L Potassium Level 3.8 3.5-5.1 mmol/L Chloride Level 109 H 98-107 mmol/L Carbon Dioxide Level 26 20-31 mmol/L Anion Gap 8 5-15 Blood Urea Nitrogen 28 #H 9-23 mg/dL Creatinine 0.89 0.700-1.30 mg/dL Glomerular Filtration Rate Calc 86 >90 mL/min BUN/Creatinine Ratio 31.5 H 10.0-20.0 Serum Glucose 76 74-106 mg/dL Calcium Level 8.1 L 8.7-10.4 mg/dL Total Bilirubin 1.5 H 0.2-1.0 mg/dL Aspartate Amino Transferase (AST) 17 13-40 U/L Alanine Aminotransferase (ALT) 26 7-40 U/L Alkaline Phosphatase 47 46-116 U/L Total Protein 5.2 L 5.7-8.2 g/dL Albumin 3.6 3.2-4.8 g/dL Troponin I High Sensitivity 9 </=54 ng/L Lactic Acid Level 2.4 *H 0.4-2.0 mmol/L Urine Color Yellow Yellow Urine Clarity Clear Clear Urine pH 5.0 5.0-9.0 Urine Specific [place] 1.025 1.001-1.035 Urine Protein Negative Negative Urine Ketones Negative Negative Urine Blood Negative Negative /uL Urine Nitrite Negative Negative Urine Bilirubin Negative Negative Urine Urobilinogen Normal Negative mg/dL Urine Leukocyte Esterase Negative Negative /uL Urine RBC 1 0 - 3 /hpf Urine Microscopic WBC < 1 0-3 /HPF Urine Squamous Epithelial Cells Few <5 /hpf Urine Bacteria None seen None Seen /hpf Urine Mucus Few None Seen Urine Glucose Normal Normal mg/dL Test 12/12/24 17:06 Range/Units Magnesium Level 2.2 1.6-2.6 mg/dL B-Type Natriuretic Peptide 248.68 0-100 pg/mL Assessment/Plan Plan Patient is a 79-year-old gentleman who presented to the hospital after mechanical fall. He was cooking dinner and turned badly and found himself on the floor. He mentions that he did have some right-sided lower ext discomfort. Few days later he decided to come to the hospital as he was unable to ambulate as usual. In emergency room and since admission, the patient is found to have right femoral neck fracture. Cardiology is involved for cardiac aspects of care and risk stratification prior to possible orthopedic surgery. Patient is known to our practice from outside. Patient is known to have old history of myocardial infarction (nuclear stress test of July 2023 had reported myocardial infarction in [place]). Patient denies any chest pains. Patient denies loss of consciousness. Patient also has history of arrhythmia/PVCs/NSVT/SVT as outpatient. It is of note that the patient does have history of multiple myeloma and goes to hematology/oncology regularly (Dr. Gannon). Lying flat in bed. Not in acute distress. No JVD. Mucosa is pink and wet. No goiter. No carotid bruit. Not using accessory muscles of breathing. Lungs are clear to auscultation. Cardiac: Regular, no thrill. Systolic murmur in the apex is heard. Abdomen is soft. Bowel sound is positive. There is no gross mass. Dorsalis pedis is 2+ bilateral Past medical history includes hypertension, hyperlipidemia, multiple myeloma, hypothyroidism, BPH, old history of shingles, old history of CVA (2015), peripheral artery disease, old history of abnormal LFT and also history of PVC/arrhythmia/SVT/NSVT. Nuclear stress test of August 01, 2023 (performed in the office) had reported myocardial infarction in [place] territory and ejection fraction of 35% WBC: 2.8 - 1.9 Hemoglobin: 13.4 - 11.6 Platelet: 121 - 89 BNP: 248.68 Troponin (high sensitive): 8 - 9 - 9 Creatinine: 1.08 - 0.89 Potassium: 4.9 - 3.8 Chest x-ray revealed: IMPRESSION: Mild interstitial prominence which may be due to fibrotic changes/ pulmonary vascular congestion. There appears to be sclerosis with deformity of the left posterior and posterolateral 9th rib. Sclerotic focus of the right proximal humerus. Correlate for possible metastatic lesions. Abdomen and pelvis CT scan revealed: IMPRESSION: 1. Acute impacted right femoral basicervical fracture, possibly pathologic fracture. 2. Diffuse osteopenia with mottled appearance of the bones concerning for diffuse underlying marrow disease such as multiple myeloma or lytic metastasis. 3. Lytic, mildly expansile lesion of the posterolateral aspect of the left 9th rib. 4. Moderate splenomegaly. Femoral x-ray (right side) revealed: There is acute impacted right femoral neck fracture. The femoral head remains within the acetabulum. Small lytic lesions involving the femoral diaphysis. Right total knee replacement with intact hardware. CT of the head reported: There is age concordant parenchymal volume loss. There is no evidence of acute intracranial hemorrhage, mass, mass effect midline shift. There is no hydrocephalus or extra-axial fluid collection. There is a sm all chronic infarct in the posterior right cerebellum. There are few additional small chronic infarcts noted in the right cerebellum. The hancock-white matter differentiation otherwise appears maintained. The visualized paranasal sinuses and mastoid air cells are clear. The calvarium is intact. IMPRESSION: 1. No acute intracranial process. 2. Chronic right cerebellar infarcts as noted above. EKG reveals sinus rhythm, LVH and PVC Telemetry reveals sinus rhythm, occasional non-transmitted PAC with occasion of NSVT Echocardiogram reported: Left ventricle: Concentric left ventricular hypertrophy was seen. LVEF was 40-45%. Inferior hypokinesis was observed. Right ventricle was mildly dilated with normal systolic function. Both atria were mildly dilated. Aortic valve was not well visualized. Mild aortic stenosis/aortic insufficiency was observed. There was mild mitral regurgitation. There was no tricuspid regurgitation. Pulmonary valve was not well visualized. IVC was mildly dilated. As there was no could tricuspid regurgitation jet, right ventricular systolic pressure could not be estimated. There was no pericardial effusion. Patient is a 79-year-old gentleman who presented after mechanical fall and is found to have femoral neck fracture. There has been no loss of consciousness. Does have baseline history of coronary artery disease and has had TX in [place] (nuclear stress test of July 2023) and also history of PVC/SVT/NSVT/arrhythmia as outpatient. Cardiac etiology for presentation is less likely. Images are questioning metastatic lesions, but multiple myeloma could have contributed to the imaging findings also (hematology/oncology evaluation is suggested). Mechanical fall Femoral neck fracture Pathologic femoral neck fracture? Coronary artery disease (TX in [place] territory, old) NSVT PAC VHD, Mild aortic stenosis/aortic insufficiency Heart failure, mid range Anemia, thrombocytopenia, leukopenia (pancytopenia) History of multiple myeloma Splenomegaly (possibly secondary to multiple myeloma) Cardiac suggestion for management: Manage in telemetry Follow-up electrolytes and kidney function tests and correct abnormalities. Keep potassium above 4 and magnesium above 2 At this point, no repeat ischemic workup is indicated Amiodarone: 200 mg HS is advised Cardiac-salazar, the patient is considered moderate risk patient for moderate risk orthopedic surgery. Cardiac-salazar, you can proceed with orthopedic surgery under appropriate intra and postoperative hemodynamic monitoring. Avoid hypotension Hematology/oncology evaluation is advised (was at pathologic fracture?) Further evaluation and management depends on the above and clinical course Thank you for consultation A total of 75 minutes was spent reviewing the patient record, examining the patient, making a diagnostic and therapeutic plan, discussing this plan with medical personnel, following up on diagnostic studies and following the patient for clinical stability excluding any and all procedures. At least 50% of this time was spent in direct, [id number] contact. Thank you for allowing me to participate in this patient's care. Further recommendations will depend on patient's clinical course. Please do not hesitate to contact me if you have any questions or concerns. This medical document was created using electronic medical record system with [employer] computerized dictation system. Although this document has been carefully reviewed, there may still be some phonetic and typographical errors. These areas are purely typographical due to the imperfection of the software programs, and do not reflect any compromise in the patient's medical care. Plan discussed with: Patient, Other (nurse) TYLER DISLA MD Dec 13, 2024 19:22
[2024-12-13] MEDS: AMIODARONE HCL 200 MG TAB PO SCH (20:59)
[2024-12-14] VITALS (8 sets, daily range): BP systolic 110–164; BP diastolic 49–82; PULSE 51–102; RESP 16–77; TEMP 97.3–98; O2SAT 95–97
--- NOTE | 2024-12-14 10:23 | DVHPN2 ---
Reviewed: Care Plan, H&P, Labs, Medications, Previous Orders, Radiology Changes from previous H/P or p: No Changes Eyes: No Pain, No Vision change, No Conjunctivae inflammation, No Eyelid inflammation, No Other, No Redness ENT: No Ear pain, No Ear discharge, No Nose pain, No Nose discharge, No Nose congestion, No Mouth pain, No Mouth swelling, No Throat pain, No Throat swelling, No Other Cardiovascular: No Chest Pain, No Palpitations, No Orthopnea, No Paroxysmal Noc. Dyspnea, No Edema, No Lt Headedness, No Other Respiratory: No Cough, No Dry, No Shortness of breath, No SOB with excertion, No Wheezing, No Hemoptysis, No Pleuritic Pain, No Sputum, No Other Gastrointestinal: No Nausea, No Vomiting, No Abdominal Pain, No Diarrhea, No Constipation, No Melena, No Hematochezia, No Other Genitourinary: No Dysuria, No Frequency, No Incontinence, No Hematuria, No Retention, No Other Musculoskeletal: other (Right hip pain); No neck pain, No shoulder pain, No arm pain, No back pain, No hand pain, No leg pain, No foot pain Skin: No Rash, No Lesions, No Jaundice, No Bruising, No Other Objective Vitals Vital Signs Date Time Temp Pulse Resp B/P (MAP) Pulse Ox O2 Delivery O2 Flow Rate FiO2 12/14/24 09:00 97.3 68 20 111/54 (73) 95 97.3 12/13/24 19:30 Room Air* 0 21 Intake/Output Intake and Output 12/14/24 07:00 Intake Total 2203 ml Output Total 2900 ml Balance -697 ml Intake Oral 2153 ml IV Total 50 ml Output Urine Total 2900 ml # Bowel Movements 1 Medications Current Medications Medications Dose Ordered Sig/Marcella Route Start Time Stop Time Status Last Admin Dose Admin Tamsulosin HCl 0.4 mg QPM PO 12/13/24 18:00 12/13/24 17:56 0.4 MG Ceftriaxone Sodium 50 ml @ 100 mls/hr DAILY@09 IV 12/13/24 09:00 12/14/24 09:00 100 MLS/HR Levothyroxine Sodium 25 mcg QAM@0600 PO 12/13/24 06:00 12/14/24 05:30 25 MCG Sodium Chloride 1,000 ml @ 60 mls/hr [id number] IV 12/12/24 20:45 12/14/24 05:30 60 MLS/HR Acetaminophen/ Hydrocodone Bitart 1 tab Q4HP PRN PO 12/12/24 20:45 Ondansetron HCl 4 mg Q4HP PRN IV 12/12/24 20:45 Docusate Sodium 100 mg BIDPRN PRN PO 12/12/24 20:45 Enoxaparin Sodium 30 mg DAILY SC 12/13/24 10:00 12/13/24 08:27 30 MG Acetaminophen 650 mg Q6HP PRN PO 12/12/24 20:45 Nitroglycerin 0.4 mg Q5MINP PRN SL 12/12/24 22:30 Morphine Sulfate 2 mg Q30M PRN IV 12/12/24 22:30 Amiodarone HCl 200 mg HS PO 12/13/24 22:00 12/13/24 20:59 200 MG Laboratory Results Laboratory Tests 12/13/24 10:06 Urinalysis Test 12/12/24 18:57 Urine Color Yellow (Yellow) Urine Clarity Clear (Clear) Urine pH 5.0 (5.0-9.0) Urine Specific [place] 1.025 (1.001-1.035) Urine Protein Negative (Negative) Urine Ketones Negative (Negative) Urine Blood Negative /uL (Negative) Urine Nitrite Negative (Negative) Urine Bilirubin Negative (Negative) Urine Urobilinogen Normal mg/dL (Negative) Urine Leukocyte Esterase Negative /uL (Negative) Urine RBC 1 /hpf (0 - 3) Urine Microscopic WBC < 1 /HPF (0-3) Urine Squamous Epithelial Cells Few /hpf (<5) Urine Bacteria None seen /hpf (None Seen) Urine Mucus Few (None Seen) Urine Glucose Normal mg/dL (Normal) Labs and/or images reviewed: Labs reviewed by me, Image(s) reviewed by me Assessment/Plan Assessment/Plan Fracture neck right femur: Consult for orthopedic Dr Negron appreciated, morphine for pain Mechanical fall BPH: Flomax Dehydration with BUN and creatinine 38 and 1.08: IV fluids Possible urinary tract infection: Rocephin Cardiology Dr. Jung cleared for surgery, echo 40 percent ejection fraction Hypothyroidism: Synthroid\ History of multiple myeloma: Gets weekly injections from Dr. Teressa Pinzon H/O Left hip arthroplasty by Dr. Larsen 2018 H/O right knee surgery [address]Nanda Pinzon placed. PCP Dr. Zain Conroy Time Spent 55 minutes Patient is full code Advanced care planning time 20 minutes Plan discussed with: Patient Date of Service: Dec 14, 2024 Billing Provider: JACOBO GALVAN MD Common Visit Codes: [id number] INP/OBS CARE(HIGH) JACOBO GALVAN MD Dec 14, 2024 10:23
--- NOTE | 2024-12-14 12:27 | DVHPN2 ---
Progress Note - Dictate Date Seen: Dec 14, 2024 Medical Necessity Reason Pt with a Central, PICC or Fol: No vital signs Vital Sign Date Time Temp Pulse Resp B/P (MAP) Pulse Ox O2 Delivery O2 Flow Rate FiO2 12/14/24 09:00 97.3 68 20 111/54 (73) 95 97.3 12/14/24 08:15 Room Air* 0 21 Total Intake and Output 12/13/24 12/13/24 12/14/24 15:00 23:00 07:00 Intake Total 723 ml 680 ml 800 ml Output Total 1700 ml 1200 ml Balance 723 ml -1020 ml -400 ml medications Current Medications Medications Dose Ordered Sig/Marcella Route Start Time Stop Time Status Last Admin Dose Admin Tamsulosin HCl 0.4 mg QPM PO 12/13/24 18:00 12/13/24 17:56 0.4 MG Ceftriaxone Sodium 50 ml @ 100 mls/hr DAILY@09 IV 12/13/24 09:00 12/14/24 09:00 100 MLS/HR Levothyroxine Sodium 25 mcg QAM@0600 PO 12/13/24 06:00 12/14/24 05:30 25 MCG Sodium Chloride 1,000 ml @ 60 mls/hr [id number] IV 12/12/24 20:45 12/14/24 05:30 60 MLS/HR Acetaminophen/ Hydrocodone Bitart 1 tab Q4HP PRN PO 12/12/24 20:45 Ondansetron HCl 4 mg Q4HP PRN IV 12/12/24 20:45 Docusate Sodium 100 mg BIDPRN PRN PO 12/12/24 20:45 Enoxaparin Sodium 30 mg DAILY SC 12/13/24 10:00 12/13/24 08:27 30 MG Acetaminophen 650 mg Q6HP PRN PO 12/12/24 20:45 Nitroglycerin 0.4 mg Q5MINP PRN SL 12/12/24 22:30 Morphine Sulfate 2 mg Q30M PRN IV 12/12/24 22:30 Amiodarone HCl 200 mg HS PO 12/13/24 22:00 12/13/24 20:59 200 MG laboratory and microbiology Laboratory Tests 12/13/24 10:06 Test 12/13/24 10:06 Range/Units Serum Glucose 76 74-106 mg/dL Assessment/Plan Patient is a 79-year-old gentleman who presented to the hospital after mechanical fall. He was cooking dinner and turned badly and found himself on the floor. He mentions that he did have some right-sided lower ext discomfort. Few days later he decided to come to the hospital as he was unable to ambulate as usual. In emergency room and since admission, the patient is found to have right femoral neck fracture. Cardiology is involved for cardiac aspects of care and risk stratification prior to possible orthopedic surgery. Patient is known to our practice from outside. Patient is known to have old history of myocardial infarction (nuclear stress test of July 2023 had reported myocardial infarction in [place] Patient denies any chest pains. Patient denies loss of consciousness. Patient also has history of arrhythmia/PVCs/NSVT/SVT as outpatient. It is of note that the patient does have history of multiple myeloma and goes to hematology/oncology regularly (Dr. Gannon). Lying flat in bed. Not in acute distress. No JVD. Mucosa is pink and wet. No goiter. No carotid bruit. Not using accessory muscles of breathing. Lungs are clear to auscultation. Cardiac: Regular, no thrill. Systolic murmur in the apex is heard. Abdomen is soft. Bowel sound is positive. There is no gross mass. Dorsalis pedis is 2+ bilateral Past medical history includes hypertension, hyperlipidemia, multiple myeloma, hypothyroidism, BPH, old history of shingles, old history of CVA (2016), peripheral artery disease, old history of abnormal LFT and also history of PVC/arrhythmia/SVT/NSVT. Nuclear stress test of August 01, 2023 (performed in the office) had reported myocardial infarction in [place] and ejection fraction of 35% WBC: 2.8 - 1.9 Hemoglobin: 13.4 - 11.6 Platelet: 121 - 89 BNP: 248.68 Troponin (high sensitive): 8 - 9 - 9 Creatinine: 1.08 - 0.89 Potassium: 4.9 - 3.8 Chest x-ray revealed: IMPRESSION: Mild interstitial prominence which may be due to fibrotic changes/ pulmonary vascular congestion. There appears to be sclerosis with deformity of the left posterior and posterolateral 9th rib. Sclerotic focus of the right proximal humerus. Correlate for possible metastatic lesions. Abdomen and pelvis CT scan revealed: IMPRESSION: 1. Acute impacted right femoral basicervical fracture, possibly pathologic fracture. 2. Diffuse osteopenia with mottled appearance of the bones concerning for diffuse underlying marrow disease such as multiple myeloma or lytic metastasis. 3. Lytic, mildly expansile lesion of the posterolateral aspect of the left 9th rib. 4. Moderate splenomegaly. Femoral x-ray (right side) revealed: There is acute impacted right femoral neck fracture. The femoral head remains within the acetabulum. Small lytic lesions involving the femoral diaphysis. Right total knee replacement with intact hardware. CT of the head reported: There is age concordant parenchymal volume loss. There is no evidence of acute intracranial hemorrhage, mass, mass effect midline shift. There is no hydrocephalus or extra-axial fluid collection. There is a small chronic infarct in the posterior right cerebellum. There are few additional small chronic infarcts noted in the right cerebellum. The hancock-white matter differentiation otherwise appears maintained. The visualized paranasal sinuses and mastoid air cells are clear. The calvarium is intact. IMPRESSION: 1. No acute intracranial process. 2. Chronic right cerebellar infarcts as noted above. EKG reveals sinus rhythm, LVH and PVC Telemetry reveals sinus rhythm, occasional non-transmitted PAC with occasion of NSVT Echocardiogram reported: Left ventricle: Concentric left ventricular hypertrophy was seen. LVEF was 40-45%. Inferior hypokinesis was observed. Right ventricle was mildly dilated with normal systolic function. Both atria were mildly dilated. Aortic valve was not well visualized. Mild aortic stenosis/aortic insufficiency was observed. There was mild mitral regurgitation. There was no tricuspid regurgitation. Pulmonary valve was not well visualized. IVC was mildly dilated. As there was no could tricuspid regurgitation jet, right ventricular systolic pressure could not be estimated. There was no pericardial effusion. Patient is a 79-year-old gentleman who presented after mechanical fall and is found to have femoral neck fracture. There has been no loss of consciousness. Does have baseline history of coronary artery disease and has had [place] in [place] (nuclear stress test of July 2023) and also history of PVC/SVT/NSVT/arrhythmia as outpatient. Cardiac etiology for presentation is less likely. Images are questioning metastatic lesions, but multiple myeloma could have contributed to the imaging findings also (hematology/oncology evaluation is suggested). Mechanical fall Femoral neck fracture Pathologic femoral neck fracture? Coronary artery disease ([place] in [place], old) NSVT PAC VHD, Mild aortic stenosis/aortic insufficiency Heart failure, mid range Anemia, thrombocytopenia, leukopenia (pancytopenia) History of multiple myeloma Splenomegaly (possibly secondary to multiple myeloma) Cardiac suggestion for management: Manage in telemetry Follow-up electrolytes and kidney function tests and correct abnormalities. Keep potassium above 4 and magnesium above 2 At this point, no repeat ischemic workup is indicated Amiodarone: 200 mg HS Cardiac-salazar, the patient is considered moderate risk patient for moderate risk orthopedic surgery. Cardiac-salazar, you can proceed with orthopedic surgery under appropriate intra and postoperative hemodynamic monitoring. Avoid hypotension Hematology/oncology evaluation is advised Further evaluation and management depends on the above and clinical course A total of 55 minutes was spent reviewing the patient record, examining the patient, making a diagnostic and therapeutic plan, discussing this plan with medical personnel, following up on diagnostic studies and following the patient for clinical stability excluding any and all procedures. At least 50% of this time was spent in direct, [id number] contact. Thank you for allowing me to participate in this patient's care. Further recommendations will depend on patient's clinical course. Please do not hesitate to contact me if you have any questions or concerns. This medical document was created using electronic medical record system with [employer] computerized dictation system. Although this document has been carefully reviewed, there may still be some phonetic and typographical errors. These areas are purely typographical due to the imperfection of the software programs, and do not reflect any compromise in the patient's medical care. Plan discussed with: Patient, Other (nurse) TYLER DISLA MD Dec 14, 2024 12:27
[2024-12-14 15:19] LABS: INR 1.09 (0.9-1.15); Partial Thromboplastin Time 29.6 SEC (24.5-34.5); Prothrombin Time 11.5 sec (9.3-11.8)
[2024-12-15] VITALS (8 sets, daily range): BP systolic 132–145; BP diastolic 57–69; PULSE 57–75; RESP 15–19; TEMP 97.7–97.9; O2SAT 96–100
--- NOTE | 2024-12-15 07:30 | DVHPN2 ---
Progress Note - Dictate Date Seen: Dec 15, 2024 Medical Necessity Reason Pt with a Central, PICC or Fol: No vital signs Vital Sign Date Time Temp Pulse Resp B/P (MAP) Pulse Ox O2 Delivery O2 Flow Rate FiO2 12/15/24 05:00 97.8 57 19 132/60 (84) 96 97.8 12/14/24 19:30 Room Air* 0 21 Total Intake and Output 12/14/24 12/14/24 12/15/24 15:00 23:00 07:00 Intake Total 368 ml 400 ml 400 ml Output Total 1575 ml 3 ml Balance 368 ml -1175 ml 397 ml medications Current Medications Medications Dose Ordered Sig/Marcella Route Start Time Stop Time Status Last Admin Dose Admin Tamsulosin HCl 0.4 mg QPM PO 12/13/24 18:00 12/13/24 17:56 0.4 MG Ceftriaxone Sodium 50 ml @ 100 mls/hr DAILY@09 IV 12/13/24 09:00 12/14/24 09:00 100 MLS/HR Levothyroxine Sodium 25 mcg QAM@0600 PO 12/13/24 06:00 12/14/24 05:30 25 MCG Sodium Chloride 1,000 ml @ 60 mls/hr [id number] IV 12/12/24 20:45 12/14/24 21:59 60 MLS/HR Acetaminophen/ Hydrocodone Bitart 1 tab Q4HP PRN PO 12/12/24 20:45 Ondansetron HCl 4 mg Q4HP PRN IV 12/12/24 20:45 Docusate Sodium 100 mg BIDPRN PRN PO 12/12/24 20:45 Enoxaparin Sodium 30 mg DAILY SC 12/13/24 10:00 12/13/24 08:27 30 MG Acetaminophen 650 mg Q6HP PRN PO 12/12/24 20:45 Nitroglycerin 0.4 mg Q5MINP PRN SL 12/12/24 22:30 Morphine Sulfate 2 mg Q30M PRN IV 12/12/24 22:30 Amiodarone HCl 200 mg HS PO 12/13/24 22:00 12/13/24 20:59 200 MG laboratory and microbiology Laboratory Tests 12/13/24 10:06 Test 12/13/24 10:06 Range/Units Serum Glucose 76 74-106 mg/dL Assessment/Plan Patient is a 79-year-old gentleman who presented to the hospital after mechanical fall. He was cooking dinner and turned badly and found himself on the floor. He mentions that he did have some right-sided lower ext discomfort. Few days later he decided to come to the hospital as he was unable to ambulate as usual. In emergency room and since admission, the patient is found to have right femoral neck fracture. Cardiology is involved for cardiac aspects of care and risk stratification prior to possible orthopedic surgery. Patient is known to our practice from outside. Patient is known to have old history of myocardial infarction (nuclear stress test of July 2023 had reported myocardial infarction in [place]). Patient denies any chest pains. Patient denies loss of consciousness. Patient also has history of arrhythmia/PVCs/NSVT/SVT as outpatient. It is of note that the patient does have history of multiple myeloma and goes to hematology/oncology regularly (Dr. Gannon). Lying flat in bed. Not in acute distress. No JVD. Mucosa is pink and wet. No goiter. No carotid bruit. Not using accessory muscles of breathing. Lungs are clear to auscultation. Cardiac: Regular, no thrill. Systolic murmur in the apex is heard. Abdomen is soft. Bowel sound is positive. There is no gross mass. Dorsalis pedis is 2+ bilateral Past medical history includes hypertension, hyperlipidemia, multiple myeloma, hypothyroidism, BPH, old history of shingles, old history of CVA (2016), peripheral artery disease, old history of abnormal LFT and also history of PVC/arrhythmia/SVT/NSVT. Nuclear stress test of August 01, 2023 (performed in the office) had reported myocardial infarction in [place] and ejection fraction of 35% WBC: 2.8 - 1.9 Hemoglobin: 13.4 - 11.6 Platelet: 121 - 89 BNP: 248.68 Troponin (high sensitive): 8 - 9 - 9 Creatinine: 1.08 - 0.89 Potassium: 4.9 - 3.8 Chest x-ray revealed: IMPRESSION: Mild interstitial prominence which may be due to fibrotic changes/ pulmonary vascular congestion. There appears to be sclerosis with deformity of the left posterior and posterolateral 9th rib. Sclerotic focus of the right proximal humerus. Correlate for possible metastatic lesions. Abdomen and pelvis CT scan revealed: IMPRESSION: 1. Acute impacted right femoral basicervical fracture, possibly pathologic fracture. 2. Diffuse osteopenia with mottled appearance of the bones concerning for diffuse underlying marrow disease such as multiple myeloma or lytic metastasis. 3. Lytic, mildly expansile lesion of the posterolateral aspect of the left 9th rib. 4. Moderate splenomegaly. Femoral x-ray (right side) revealed: There is acute impacted right femoral neck fracture. The femoral head remains within the acetabulum. Small lytic lesions involving the femoral diaphysis. Right total knee replacement with intact hardware. CT of the head reported: There is age concordant parenchymal volume loss. There is no evidence of acute intracranial hemorrhage, mass, mass effect midline shift. There is no hydrocephalus or extra-axial fluid collection. There is a small chronic infarct in the posterior right cerebellum. There are few additional small chronic infarcts noted in the right cerebellum. The hancock-white matter differentiation otherwise appears maintained. The visualized paranasal sinuses and mastoid air cells are clear. The calvarium is intact. IMPRESSION: 1. No acute intracranial process. 2. Chronic right cerebellar infarcts as noted above. EKG reveals sinus rhythm, LVH and PVC Telemetry reveals sinus rhythm, occasional non-transmitted PAC with occasion of NSVT Echocardiogram reported: Left ventricle: Concentric left ventricular hypertrophy was seen. LVEF was 40-45%. Inferior hypokinesis was observed. Right ventricle was mildly dilated with normal systolic function. Both atria were mildly dilated. Aortic valve was not well visualized. Mild aortic stenosis/aortic insufficiency was observed. There was mild mitral regurgitation. There was no tricuspid regurgitation. Pulmonary valve was not well visualized. IVC was mildly dilated. As there was no could tricuspid regurgitation jet, right ventricular systolic pressure could not be estimated. There was no pericardial effusion. Patient is a 79-year-old gentleman who presented after mechanical fall and is found to have femoral neck fracture. There has been no loss of consciousness. Does have baseline history of coronary artery disease and has had [place] in [place] (nuclear stress test of July 2023) and also history of PVC/SVT/NSVT/arrhythmia as outpatient. Cardiac etiology for presentation is less likely. Images are questioning metastatic lesions, but multiple myeloma could have contributed to the imaging findings also (hematology/oncology evaluation is suggested). Mechanical fall Femoral neck fracture Pathologic femoral neck fracture? Coronary artery disease ([place] in [place], old) NSVT PAC VHD, Mild aortic stenosis/aortic insufficiency Heart failure, mid range Anemia, thrombocytopenia, leukopenia (pancytopenia) History of multiple myeloma Splenomegaly (possibly secondary to multiple myeloma) Cardiac suggestion for management: Manage in telemetry Follow-up electrolytes and kidney function tests and correct abnormalities. Keep potassium above 4 and magnesium above 2 At this point, no repeat ischemic workup is indicated Amiodarone: 200 mg HS Cardiac-salazar, the patient is considered moderate risk patient for moderate risk orthopedic surgery. Cardiac-salazar, you can proceed with orthopedic surgery under appropriate intra and postoperative hemodynamic monitoring. Avoid hypotension Hematology/oncology evaluation is advised Further evaluation and management depends on the above and clinical course A total of 55 minutes was spent reviewing the patient record, examining the patient, making a diagnostic and therapeutic plan, discussing this plan with medical personnel, following up on diagnostic studies and following the patient for clinical stability excluding any and all procedures. At least 50% of this time was spent in direct, [id number] contact. Thank you for allowing me to participate in this patient's care. Further recommendations will depend on patient's clinical course. Please do not hesitate to contact me if you have any questions or concerns. This medical document was created using electronic medical record system with [employer] computerized dictation system. Although this document has been carefully reviewed, there may still be some phonetic and typographical errors. These areas are purely typographical due to the imperfection of the software programs, and do not reflect any compromise in the patient's medical care. Plan discussed with: Patient, Other (nurse) TYLER DISLA MD Dec 15, 2024 07:30
--- NOTE | 2024-12-15 08:42 | DVHHP2 ---
History Allergies: Coded Allergies: NO KNOWN ALLERGIES (Unverified , 08/02/19) Chief Complaint: Right groin pain, s/p mechanical fall 8 days ago , 12/07/24, no AMS before or after fall, no hitting head, no LOC Present Illness(Onset/Duration 79M, right groin pain s/p trip over rubber mat in kitchen. No AMS before or after fall. No hitting head. DOI 8 days ago, 12/07/24. Presented to [facility] ER evening of 12/12/24. Lives with and 53yo son. Past Surgical History Right TKA , year unclear Left ZEHRA , 2016 without complication Medications see internal med History and Physical Physical Exam Skin intact EENT NCAT Chest and Lungs CTA B Heart RRR neg MRG Abdomen NBS ND NT Extremities Right groin pain with PROM, NVI Left hip well healed incision, right knee well healed incision, both with no evidence of infection Vital Signs Vital Signs Date Time Temp Pulse Resp B/P (MAP) Pulse Ox O2 Delivery O2 Flow Rate FiO2 12/15/24 08:24 97.8 58 15 143/69 (93) 97 97.8 12/15/24 08:00 Room Air* 0 21 Impressions/Description XR, CT pelvis 12/12/24 RIGHT femoral neck fracture, displaced Plan pre operative clearance surgery, RIGHT hip hemiarthroplasty risks include , ID, CVA, infection, higher risk of infection due to multiple myeloma and steroids for MM patient understands risks and has signed consent with full understanding TIO REECE MD Dec 15, 2024 08:42
[2024-12-15] MEDS ORDERED: MIDAZOLAM HCL 2MG/2ML 2ml VIAL (1mg/ml) ONE ×2 (09:20→09:25)
[2024-12-15] MEDS: ceFAZolin 1GM/50ML 50 ML IV ONE (09:20)
[2024-12-15] MEDS ORDERED: MORPHINE SULF PF 5 MG/10 ML VIAL ONE (09:21)
[2024-12-15] MEDS ORDERED: fentaNYL CITRATE 100 MCG/2 ML VL ONE (09:25)
[2024-12-15] MEDS ORDERED: PROPOFOL 10 MG/ML 20 ML IV ONE (09:27)
[2024-12-15] MEDS: TRANEXAMIC ACID 20 ML ONE (09:28)
[2024-12-15] MEDS ORDERED: ePHEDrine SULFATE 50 MG/ML AMP ONE (09:56)
[2024-12-15] MEDS: VANCOMYCIN HCL 1000 MG VL ONE (10:45)
[2024-12-15] MEDS ORDERED: HYDROmorphone HCL 2 MG/ML VL/or syr IV PRN (11:15)
[2024-12-15] MEDS ORDERED: ACETAMINOPHEN IV 1000 MG/100ML (10MG/ML) IV PRN (11:15)
--- NOTE | 2024-12-15 11:22 | DVHOP2 ---
Operative Report - 2 Report Details Date: 12/15/24 Preop Diagnosis: Right hip femoral neck fracture, displaced Postop Diagnosis: same Surgeon: Tio Reece MD Vending Manager: none Anesthesiologist: Dr Ayala Anesthesia: Regional Drains: none Implant: size 13 femoral sten, 9mm neck Consent: The patient was informed of the risks and benefits of the procedure. These include but are not limited to complications of anesthesia, postoperative infection, incomplete relief of symptoms, recurrence of symptoms, damage to bl ood vessels, nerves and tendons, deep venous thrombosis, pulmonary embolism and possible need for repeat surgery in the future. Complications: none Estimated Blood Loss: 200cc Fluids: 1 L crystalloid Findings: above Indications for Surgery: displaced femoral neck fracture with requisite bedrest without surgery and comorbidities associated with bedrest Name of Procedure Performed Right hip hemiarthroplasty Procedure Details Procedure Details: Patient brought to the operating room given Ancef 1 g IV piggyback preoperatively TXA 1 g IV piggyback preoperatively spinal anesthetic without complication Dr. Ayala and desk clerks supervisor placed into under the fracture table and placed in a left lateral decubitus position axillary roll pillow beneath and between both knees pegs anterior and posterior well padded with foam head and anatomic position foam underneath the left arm and pillow under between arms strap around waist sterile prep and drape of right hip and lower extremity time-out performed comprehension right-sided correct side celena hip arthroplasty correct procedure after review of operative consent history and physical my initials on right buttock all [facility] operating room agreeing right side correct site hemiarthroplasty correct procedure standard Felipe lying in back incision made centered over the greater trochanter sharp dissection through skin down to deep fascia deep fascia divided blunt dissection of gluteus ned posteriorly tensor fascia maribel anteriorly placement of Charnley retractor observation of sciatic nerve sciatic nerve pushed posteriorly exposing external rotators external rotators and capsule divided with Bovie cautery exposing femoral neck there was significant shortening of three or more three or 4 cm due to 8-day-old fracture head was removed and rongeur during of the fractured base of the femoral neck removing of scar and pulled and are from within the acetabulum and sized the acetabulum to be a size 50 with excellent fit the preparation of femoral canal with box osteotome lateralizing Reamer entry Reamer then broaching up to size 13 trial with a 13 stem plus nine neck with excellent stability f lexion and internal flexion adduction internal rotation extension external rotation true components cemented into place using 3rd generation cement techniques pulsatile lavage of canal distal cement restrictor pressurization of cement vacuum mixing of cement reduction after her application of true head with a plus nine neck size 50 bipolar head and irrigation of acetabulum and reduction of hip with excellent stability extension external rotation flexion 90 adduction 30 internal rotation 80 an excellent length center of headache with the tip of greater trochanter irrigation then performed vancomycin placed into deep hip deep fascia closed with simple interrupted 0 Vicryl subcutaneous 2-0 Vicryl skin kat fluffs ABD paper tape no drains specimens complications Specimen: none Condition Stable Disposition Still a Patient TIO REECE MD Dec 15, 2024 11:22
--- NOTE | 2024-12-15 11:47 | DVH ---
CLINICAL INDICATION: post op right celena hip arthroplasty TECHNIQUE: XY PELVIS AP Comparison: None FINDINGS/IMPRESSION: Status post right hip arthroplasty. No evidence of hardware complication. Left hip arthroplasty is also visualized. No acute fracture or dislocation. Superficial skin kat are seen in the right lateral hip.
--- NOTE | 2024-12-15 12:10 | DVHPN2 ---
Reviewed: Care Plan, H&P, Labs, Medications, Previous Orders, Radiology Changes from previous H/P or p: No Changes Eyes: No Pain, No Vision change, No Conjunctivae inflammation, No Eyelid inflammation, No Other, No Redness ENT: No Ear pain, No Ear discharge, No Nose pain, No Nose discharge, No Nose congestion, No Mouth pain, No Mouth swelling, No Throat pain, No Throat swelling, No Other Cardiovascular: No Chest Pain, No Palpitations, No Orthopnea, No Paroxysmal Noc. Dyspnea, No Edema, No Lt Headedness, No Other Respiratory: No Cough, No Dry, No Shortness of breath, No SOB with excertion, No Wheezing, No Hemoptysis, No Pleuritic Pain, No Sputum, No Other Gastrointestinal: No Nausea, No Vomiting, No Abdominal Pain, No Diarrhea, No Constipation, No Melena, No Hematochezia, No Other Genitourinary: No Dysuria, No Frequency, No Incontinence, No Hematuria, No Retention, No Other Musculoskeletal: other (Right hip pain); No neck pain, No shoulder pain, No arm pain, No back pain, No hand pain, No leg pain, No foot pain Skin: No Rash, No Lesions, No Jaundice, No Bruising, No Other Objective Vitals Vital Signs Date Time Temp Pulse Resp B/P (MAP) Pulse Ox O2 Delivery O2 Flow Rate FiO2 12/15/24 11:47 53 15 122/50 (74) 100 12/15/24 11:02 Mask 9.0 12/15/24 11:02 97.1 97.1 12/15/24 08:00 21 Intake/Output Intake and Output 12/15/24 07:00 Intake Total 1168 ml Output Total 1578 ml Balance -410 ml Intake Oral 1118 ml IV Total 50 ml Output Urine Total 1578 ml # Bowel Movements 1 Medications Current Medications Medications Dose Ordered Sig/Marcella Route Start Time Stop Time Status Last Admin Dose Admin Tamsulosin HCl 0.4 mg QPM PO 12/13/24 18:00 12/13/24 17:56 0.4 MG Ceftriaxone Sodium 50 ml @ 100 mls/hr DAILY@09 IV 12/13/24 09:00 12/14/24 09:00 100 MLS/HR Levothyroxine Sodium 25 mcg QAM@0600 PO 12/13/24 06:00 12/14/24 05:30 25 MCG Acetaminophen/ Hydrocodone Bitart 1 tab Q4HP PRN PO 12/12/24 20:45 Ondansetron HCl 4 mg Q4HP PRN IV 12/12/24 20:45 Docusate Sodium 100 mg BIDPRN PRN PO 12/12/24 20:45 Enoxaparin Sodium 30 mg DAILY SC 12/13/24 10:00 12/13/24 08:27 30 MG Acetaminophen 650 mg Q6HP PRN PO 12/12/24 20:45 Nitroglycerin 0.4 mg Q5MINP PRN SL 12/12/24 22:30 Morphine Sulfate 2 mg Q30M PRN IV 12/12/24 22:30 Amiodarone HCl 200 mg HS PO 12/13/24 22:00 12/13/24 20:59 200 MG Lactated Ringer's 1,000 ml @ 100 mls/hr Q10H IV 12/15/24 11:30 Laboratory Results Laboratory Tests 12/13/24 10:06 Coagulation Test 12/14/24 14:55 Prothrombin Time 11.5 sec (9.3-11.8) Prothrombin Time INR 1.09 (0.9-1.15) Activated Partial Thromboplast Time 29.6 SEC (24.5-34.5) Urinalysis Test 12/12/24 18:57 Urine Color Yellow (Yellow) Urine Clarity Clear (Clear) Urine pH 5.0 (5.0-9.0) Urine Specific [place] 1.025 (1.001-1.035) Urine Protein Negative (Negative) Urine Ketones Negative (Negative) Urine Blood Negative /uL (Negative) Urine Nitrite Negative (Negative) Urine Bilirubin Negative (Negative) Urine Urobilinogen Normal mg/dL (Negative) Urine Leukocyte Esterase Negative /uL (Negative) Urine RBC 1 /hpf (0 - 3) Urine Microscopic WBC < 1 /HPF (0-3) Urine Squamous Epithelial Cells Few /hpf (<5) Urine Bacteria None seen /hpf (None Seen) Urine Mucus Few (None Seen) Urine Glucose Normal mg/dL (Normal) Labs and/or images reviewed: Labs reviewed by me, Image(s) reviewed by me Assessment/Plan Assessment/Plan Fracture neck right femur: s/p Right hip hemiarthroplasty by Dr Torres on 12-15-24 Mechanical fall BPH: Flomax Dehydration with BUN and creatinine 38 and 1.08: IV fluids Possible urinary tract infection: Rocephin Cardiology Dr. Jung cleared for surgery, echo 40 percent ejection fraction Hypothyroidism: Synthroid\ History of multiple myeloma: Gets weekly injections from Dr. Teressa Pinzon H/O Left hip arthroplasty by Dr. Larsen 2017 H/O right knee surgery [address].Nanda Pinzon placed. PCP Dr. Zain Conroy Time Spent 55 minutes Patient is full code Advanced care planning time 20 minutes Plan discussed with: Patient Date of Service: Dec 15, 2024 Billing Provider: JACOBO GALVAN MD Common Visit Codes: [id number] INP/OBS CARE(HIGH) JACOBO GALVAN MD Dec 15, 2024 12:10
[2024-12-15] MEDS: KETOROLAC TROMETH 30 MG/ML 1ML VIAL ONE (12:51)
[2024-12-15] MEDS: ceFAZolin 2 GM/D5W100ml 0 ML IV ONE (12:51)
[2024-12-15] MEDS: BUPIVACAINE 0.25% INJ 50ML VIAL ONE (12:51)
[2024-12-15] MEDS: ONDANSETRON HCL 4 MG/2 ML VIAL IV ONE (12:52)
[2024-12-15] MEDS: LACTATED RINGER'S 1,000 ML IV SCH (12:52)
[2024-12-15] MEDS: CEFEPIME 1GM/ 50ML 50 ML IV ONE (12:52)
[2024-12-15] MEDS: HYDROcodone-ACET 5/325MG TAB PO PRN (15:35)
[2024-12-16] VITALS (7 sets, daily range): BP systolic 110–139; BP diastolic 55–59; PULSE 56–83; RESP 16–18; TEMP 97.6–98.9; O2SAT 94–96
[2024-12-16 07:37] LABS: Basophils # (auto) 0 10 ^3/uL (0-0.2); Eosinophils # (auto) 0 10 ^3/uL (0-0.8); Eosinophils % (auto) 1.3 % (0.0-7.0); Lymphocytes # (auto) 1.1 10 ^3/uL (0.4-5.4); Monocytes # (auto) 0.3 10 ^3/uL (0-1.3)
[2024-12-16 07:40] LABS: Basophils % (auto) 0.4 % (0.0-2.0); Hematocrit 34.1 % (41.0-53.0); Hemoglobin 11.8 g/dL (13.5-17.5); Lymphocytes % (auto) 43.2 % (10.0-50.0); Mean Corpuscular Hemoglobin 35.8 pg (28.0-32.0); Mean Corpuscular Hgb Conc. 34.6 g/dL (32.0-36.0); Mean Corpuscular Volume 103.5 fL (80.0-100.0); Monocytes % (auto) 10.2 % (0.0-12.0); Neutrophils # (auto) 1.1 10 ^3/uL (1.6-8.6); Neutrophils % (auto) 44.9 % (37.0-80.0); Nucleated Red Blood Cells % 0.2 %; Platelet Count (auto) 100 10^3/uL (140-450); Red Blood Cells 3.29 10^6/uL (4.5-5.90); White Blood Cell 2.5 10^3/uL (4.4-10.8)
[2024-12-16 07:54] LABS: Chloride 105 mmol/L (98-107); Potassium 4.6 mmol/L (3.5-5.1)
[2024-12-16 07:55] LABS: Anion Gap 5 (5-15); Carbon Dioxide 26 mmol/L (20-31)
[2024-12-16 08:00] LABS: BUN/Creatinine Ratio 18.8 (10.0-20.0); Blood Urea Nitrogen 18 mg/dL (9-23)
[2024-12-16 08:05] LABS: Calcium 8.7 mg/dL (8.7-10.4); Glucose 111 mg/dL (74-106); Sodium 136 mmol/L (136-145)
--- NOTE | 2024-12-16 08:09 | DVHPN2 ---
Progress Note - Dictate Date Seen: Dec 16, 2024 Medical Necessity Reason Pt with a Central, PICC or Fol: No vital signs Vital Sign Date Time Temp Pulse Resp B/P (MAP) Pulse Ox O2 Delivery O2 Flow Rate FiO2 12/16/24 05:00 98.4 56 16 113/56 (75) 95 98.4 12/15/24 20:00 Room Air* 0 21 Total Intake and Output 12/15/24 12/15/24 12/16/24 15:00 23:00 07:00 Intake Total 70 ml 840 ml 400 ml Output Total 800 ml 1400 ml Balance 70 ml 40 ml -1000 ml medications Current Medications Medications Dose Ordered Sig/Marcella Route Start Time Stop Time Status Last Admin Dose Admin Tamsulosin HCl 0.4 mg QPM PO 12/13/24 18:00 12/15/24 18:31 0.4 MG Ceftriaxone Sodium 50 ml @ 100 mls/hr DAILY@09 IV 12/13/24 09:00 12/14/24 09:00 100 MLS/HR Levothyroxine Sodium 25 mcg QAM@0600 PO 12/13/24 06:00 12/16/24 05:48 25 MCG Acetaminophen/ Hydrocodone Bitart 1 tab Q4HP PRN PO 12/12/24 20:45 12/16/24 02:52 1 TAB Ondansetron HCl 4 mg Q4HP PRN IV 12/12/24 20:45 Docusate Sodium 100 mg BIDPRN PRN PO 12/12/24 20:45 Enoxaparin Sodium 30 mg DAILY SC 12/13/24 10:00 12/13/24 08:27 30 MG Acetaminophen 650 mg Q6HP PRN PO 12/12/24 20:45 Nitroglycerin 0.4 mg Q5MINP PRN SL 12/12/24 22:30 Morphine Sulfate 2 mg Q30M PRN IV 12/12/24 22:30 Amiodarone HCl 200 mg HS PO 12/13/24 22:00 12/15/24 22:49 200 MG Lactated Ringer's 1,000 ml @ 100 mls/hr Q10H IV 12/15/24 11:30 laboratory and microbiology Laboratory Tests 12/16/24 07:08 Test 12/16/24 07:08 Range/Units Serum Glucose 111 H 74-106 mg/dL Assessment/Plan Patient is a 79-year-old gentleman who presented to the hospital after mechanical fall. He was cooking dinner and turned badly and found himself on the floor. He mentions that he did have some right-sided lower ext discomfort. Few days later he decided to come to the hospital as he was unable to ambulate as usual. In emergency room and since admission, the patient is found to have right femoral neck fracture. Cardiology is involved for cardiac aspects of care and risk stratification prior to possible orthopedic surgery. Patient is known to our practice from outside. Patient is known to have old history of myocardial infarction (nuclear stress test of July 2023 had reported myocardial infarction in [place] territory). Patient denies any chest pains. Patient denies loss of consciousness. Patient also has history of arrhythmia/PVCs/NSVT/SVT as outpatient. It is of note that the patient does have history of multiple myeloma and goes to hematology/oncology regularly (Dr. Gannon). Lying flat in bed. Not in acute distress. No JVD. Mucosa is pink and wet. No goiter. No carotid bruit. Not using accessory muscles of breathing. Lungs are clear to auscultation. Cardiac: Regular, no thrill. Systolic murmur in the apex is heard. Abdomen is soft. Bowel sound is positive. There is no gross mass. Dorsalis pedis is 2+ bilateral Past medical history includes hypertension, hyperlipidemia, multiple myeloma, hypothyroidism, BPH, old history of shingles, old history of CVA (2016), peripheral artery disease, old history of abnormal LFT and also history of PVC/arrhythmia/SVT/NSVT. Nuclear stress test of August 01, 2023 (performed in the office) had reported myocardial infarction in [place] territory and ejection fraction of 35% WBC: 2.8 - 1.9 Hemoglobin: 13.4 - 11.6 Platelet: 121 - 89 BNP: 248.68 Troponin (high sensitive): 8 - 9 - 9 Creatinine: 1.08 - 0.89 Potassium: 4.9 - 3.8 Chest x-ray revealed: IMPRESSION: Mild interstitial prominence which may be due to fibrotic changes/ pulmonary vascular congestion. There appears to be sclerosis with deformity of the left posterior and posterolateral 9th rib. Sclerotic focus of the right proximal humerus. Correlate for possible metastatic lesions. Abdomen and pelvis CT scan revealed: IMPRESSION: 1. Acute impacted right femoral basicervical fracture, possibly pathologic fracture. 2. Diffuse osteopenia with mottled appearance of the bones concerning for diffuse underlying marrow disease such as multiple myeloma or lytic metastasis. 3. Lytic, mildly expansile lesion of the posterolateral aspect of the left 9th rib. 4. Moderate splenomegaly. Femoral x-ray (right side) revealed: There is acute impacted right femoral neck fracture. The femoral head remains within the acetabulum. Small lytic lesions involving the femoral diaphysis. Right total knee replacement with intact hardware. CT of the head reported: There is age concordant parenchymal volume loss. There is no evidence of acute intracranial hemorrhage, mass, mass effect midline shift. There is no hydrocephalus or extra-axial fluid collection. There is a small chronic infarct in the posterior right cerebellum. There are few additional small chronic infarcts noted in the right cerebellum. The hancock-white matter differentiation otherwise appears maintained. The visualized paranasal sinuses and mastoid air cells are clear. The calvarium is intact. IMPRESSION: 1. No acute intracranial process. 2. Chronic right cerebellar infarcts as noted above. EKG reveals sinus rhythm, LVH and PVC Telemetry reveals sinus rhythm, occasional non-transmitted PAC with occasion of NSVT Echocardiogram reported: Left ventricle: Concentric left ventricular hypertrophy was seen. LVEF was 40-45%. Inferior hypokinesis was observed. Right ventricle was mildly dilated with normal systolic function. Both atria were mildly dilated. Aortic valve was not well visualized. Mild aortic stenosis/aortic insufficiency was observed. There was mild mitral regurgitation. There was no tricuspid regurgitation. Pulmonary valve was not well visualized. IVC was mildly dilated. As there was no could tricuspid regurgitation jet, right ventricular systolic pressure could not be estimated. There was no pericardial effusion. Patient is a 79-year-old gentleman who presented after mechanical fall and is found to have femoral neck fracture. There has been no loss of consciousness. Does have baseline history of coronary artery disease and has had HI in [place]X territory (nuclear stress test of July 2023) and also history of PVC/SVT/NSVT/arrhythmia as outpatient. Cardiac etiology for presentation is less likely. Images are questioning metastatic lesions, but multiple myeloma could have contributed to the imaging findings also (hematology/oncology evaluation is suggested). Mechanical fall Femoral neck fracture Pathologic femoral neck fracture? Coronary artery disease (HI in [place] territory, old) NSVT PAC VHD, Mild aortic stenosis/aortic insufficiency Heart failure, mid range Anemia, thrombocytopenia, leukopenia (pancytopenia) History of multiple myeloma Splenomegaly (possibly secondary to multiple myeloma) s/p femoral neck fracture surgery (right hip hemiarthroplasty) Cardiac suggestion for management: Manage in telemetry Follow-up electrolytes and kidney function tests and correct abnormalities. Keep potassium above 4 and magnesium above 2 At this point, no repeat ischemic workup is indicated Amiodarone: 200 mg HS Hematology/oncology evaluation is advised Further evaluation and management depends on the above and clinical course A total of 55 minutes was spent reviewing the patient record, examining the patient, making a diagnostic and therapeutic plan, discussing this plan with medical personnel, following up on diagnostic studies and following the patient for clinical stability excluding any and all procedures. At least 50% of this time was spent in direct, [id number] contact. Thank you for allowing me to participate in this patient's care. Further recommendations will depend on patient's clinical course. Please do not hesitate to contact me if you have any questions or concerns. This medical document was created using electronic medical record system with [employer] computerized dictation system. Although this document has been carefully reviewed, there may still be some phonetic and typographical errors. These areas are purely typographical due to the imperfection of the software programs, and do not reflect any compromise in the patient's medical care. Plan discussed with: Patient, Other (nurse) TYLER DISLA MD Dec 16, 2024 08:09
[2024-12-16 08:12] LABS: Hemoglobin 11.8 g/dL (13.5-17.5)
[2024-12-16 08:16] LABS: Hematocrit 34.4 % (41.0-53.0)
--- NOTE | 2024-12-16 13:47 | DVHPN2 ---
Reviewed: Care Plan, H&P, Labs, Medications, Previous Orders, Radiology Changes from previous H/P or p: No Changes Eyes: No Pain, No Vision change, No Conjunctivae inflammation, No Eyelid inflammation, No Other, No Redness ENT: No Ear pain, No Ear discharge, No Nose pain, No Nose discharge, No Nose congestion, No Mouth pain, No Mouth swelling, No Throat pain, No Throat swelling, No Other Cardiovascular: No Chest Pain, No Palpitations, No Orthopnea, No Paroxysmal Noc. Dyspnea, No Edema, No Lt Headedness, No Other Respiratory: No Cough, No Dry, No Shortness of breath, No SOB with excertion, No Wheezing, No Hemoptysis, No Pleuritic Pain, No Sputum, No Other Gastrointestinal: No Nausea, No Vomiting, No Abdominal Pain, No Diarrhea, No Constipation, No Melena, No Hematochezia, No Other Genitourinary: No Dysuria, No Frequency, No Incontinence, No Hematuria, No Retention, No Other Musculoskeletal: other (Right hip pain); No neck pain, No shoulder pain, No arm pain, No back pain, No hand pain, No leg pain, No foot pain Skin: No Rash, No Lesions, No Jaundice, No Bruising, No Other Objective Vitals Vital Signs Date Time Temp Pulse Resp B/P (MAP) Pulse Ox O2 Delivery O2 Flow Rate FiO2 12/16/24 09:00 97.6 65 17 123/59 (80) 94 97.6 12/16/24 08:05 Room Air* 0 21 Intake/Output Intake and Output 12/16/24 07:00 Intake Total 1310 ml Output Total 2200 ml Balance -890 ml Intake Oral 1240 ml IV Total 70 ml Output Urine Total 2200 ml Medications Current Medications Medications Dose Ordered Sig/Marcella Route Start Time Stop Time Status Last Admin Dose Admin Tamsulosin HCl 0.4 mg QPM PO 12/13/24 18:00 12/15/24 18:31 0.4 MG Ceftriaxone Sodium 50 ml @ 100 mls/hr DAILY@09 IV 12/13/24 09:00 12/16/24 08:28 100 MLS/HR Levothyroxine Sodium 25 mcg QAM@0600 PO 12/13/24 06:00 12/16/24 05:48 25 MCG Acetaminophen/ Hydrocodone Bitart 1 tab Q4HP PRN PO 12/12/24 20:45 12/16/24 02:52 1 TAB Ondansetron HCl 4 mg Q4HP PRN IV 12/12/24 20:45 Docusate Sodium 100 mg BIDPRN PRN PO 12/12/24 20:45 Enoxaparin Sodium 30 mg DAILY SC 12/13/24 10:00 12/16/24 08:28 30 MG Acetaminophen 650 mg Q6HP PRN PO 12/12/24 20:45 Nitroglycerin 0.4 mg Q5MINP PRN SL 12/12/24 22:30 Morphine Sulfate 2 mg Q30M PRN IV 12/12/24 22:30 Amiodarone HCl 200 mg HS PO 12/13/24 22:00 12/15/24 22:49 200 MG Lactated Ringer's 1,000 ml @ 100 mls/hr Q10H IV 12/15/24 11:30 12/16/24 08:27 100 MLS/HR Laboratory Results Laboratory Tests 12/16/24 07:08 Chemistry Test 12/16/24 07:08 Calcium Level 8.7 mg/dL (8.7-10.4) Urinalysis Test 12/12/24 18:57 Urine Color Yellow (Yellow) Urine Clarity Clear (Clear) Urine pH 5.0 (5.0-9.0) Urine Specific [place] 1.025 (1.001-1.035) Urine Protein Negative (Negative) Urine Ketones Negative (Negative) Urine Blood Negative /uL (Negative) Urine Nitrite Negative (Negative) Urine Bilirubin Negative (Negative) Urine Urobilinogen Normal mg/dL (Negative) Urine Leukocyte Esterase Negative /uL (Negative) Urine RBC 1 /hpf (0 - 3) Urine Microscopic WBC < 1 /HPF (0-3) Urine Squamous Epithelial Cells Few /hpf (<5) Urine Bacteria None seen /hpf (None Seen) Urine Mucus Few (None Seen) Urine Glucose Normal mg/dL (Normal) Labs and/or images reviewed: Labs reviewed by me, Image(s) reviewed by me Assessment/Plan Assessment/Plan Fracture neck right femur: s/p Right hip hemiarthroplasty by Dr Torres on 12-15-24 Mechanical fall BPH: Flomax Dehydration with BUN and creatinine 38 and 1.08: IV fluids Possible urinary tract infection: Rocephin Cardiology Dr. Jung cleared for surgery, echo 40 percent ejection fraction Hypothyroidism: Synthroid\ History of multiple myeloma: Gets weekly injections from Dr. Teressa Pinzon H/O Left hip arthroplasty by Dr. Larsen 2017 H/O right knee surgery [address].Nanda Pinzon placed. PCP Dr. Zain Conroy Time Spent 55 minutes Patient is full code Advanced care planning time 20 minutes Plan discussed with: Patient Date of Service: Dec 16, 2024 Billing Provider: JACOBO GALVAN MD Common Visit Codes: [id number] INP/OBS CARE(HIGH) JACOBO GALVAN MD Dec 16, 2024 13:47
--- NOTE | 2024-12-16 15:16 | DVHPN2 ---
Progress Note - Dictate Date Seen: Dec 16, 2024 Medical Necessity Reason Pt with a Central, PICC or Fol: No Subjective Patient was lying comfortably in bed during my evaluation reports some postoperative hip pain that is being somewhat improved with the help of pain medication. Patient reports that he was able to get up and walk with the help of physical therapy but was only able to get a few steps right outside the peña of his room and back to his bed due to the pain. Patient is otherwise feeling well denying any other complaints or concerns during my evaluation. vital signs Vital Sign Date Time Temp Pulse Resp B/P (MAP) Pulse Ox O2 Delivery O2 Flow Rate FiO2 12/16/24 09:00 97.6 65 17 123/59 (80) 94 97.6 12/16/24 08:05 Room Air* 0 21 Total Intake and Output 12/15/24 12/15/24 12/16/24 15:00 23:00 07:00 Intake Total 70 ml 840 ml 400 ml Output Total 800 ml 1400 ml Balance 70 ml 40 ml -1000 ml medications Current Medications Medications Dose Ordered Sig/Marcella Route Start Time Stop Time Status Last Admin Dose Admin Tamsulosin HCl 0.4 mg QPM PO 12/13/24 18:00 12/15/24 18:31 0.4 MG Ceftriaxone Sodium 50 ml @ 100 mls/hr DAILY@09 IV 12/13/24 09:00 12/16/24 08:28 100 MLS/HR Levothyroxine Sodium 25 mcg QAM@0600 PO 12/13/24 06:00 12/16/24 05:48 25 MCG Acetaminophen/ Hydrocodone Bitart 1 tab Q4HP PRN PO 12/12/24 20:45 12/16/24 02:52 1 TAB Ondansetron HCl 4 mg Q4HP PRN IV 12/12/24 20:45 Docusate Sodium 100 mg BIDPRN PRN PO 12/12/24 20:45 Enoxaparin Sodium 30 mg DAILY SC 12/13/24 10:00 12/16/24 08:28 30 MG Acetaminophen 650 mg Q6HP PRN PO 12/12/24 20:45 Nitroglycerin 0.4 mg Q5MINP PRN SL 12/12/24 22:30 Morphine Sulfate 2 mg Q30M PRN IV 12/12/24 22:30 Amiodarone HCl 200 mg HS PO 12/13/24 22:00 12/15/24 22:49 200 MG Lactated Ringer's 1,000 ml @ 100 mls/hr Q10H IV 12/15/24 11:30 12/16/24 08:27 100 MLS/HR objective A&O x4 in no acute distress Hip range of motion grossly limited with pain on movement Dressing clean, dry, and intact No distal edema or calf tenderness to palpation Neurovascularly intact with cap refill less than 2 seconds laboratory and microbiology Laboratory Tests 12/16/24 07:08 Test 12/16/24 07:08 Range/Units Serum Glucose 111 H 74-106 mg/dL Assessment/Plan Continue current management as well as pain control and physical therapy and advised patient to remain weight-bearing as tolerated with the assistance of a walker. I advised the patient to maintain his dressings clean, dry, and intact. We will continue monitoring patient and re-evaluate for possible discharge tomorrow pending his progress with physical therapy. He understood and agreed. Plan discussed with: Patient ROSALINA MARX Dec 16, 2024 15:16
[2024-12-17 01:00] VITALS: BP 119/76; PULSE 74; RESP 18; TEMP 99.7; O2SAT 93
[2024-12-17 05:00] VITALS: BP 123/64; PULSE 67; RESP 18; TEMP 97.4; O2SAT 95
[2024-12-17] MEDS: DOCUSATE SOD 100 MG CAP PO PRN (05:49)
--- NOTE | 2024-12-17 06:48 | DVHPN2 ---
Progress Note - Dictate Date Seen: Dec 17, 2024 Medical Necessity Reason Pt with a Central, PICC or Fol: No vital signs Vital Sign Date Time Temp Pulse Resp B/P (MAP) Pulse Ox O2 Delivery O2 Flow Rate FiO2 12/17/24 05:00 97.4 67 18 123/64 (83) 95 97.4 12/16/24 20:00 Room Air* 0 21 Total Intake and Output 12/16/24 12/16/24 12/17/24 15:00 23:00 07:00 Intake Total 50 ml 1676 ml 600 ml Output Total 658 ml 1500 ml Balance 50 ml 1018 ml -900 ml medications Current Medications Medications Dose Ordered Sig/Marcella Route Start Time Stop Time Status Last Admin Dose Admin Tamsulosin HCl 0.4 mg QPM PO 12/13/24 18:00 12/15/24 18:31 0.4 MG Ceftriaxone Sodium 50 ml @ 100 mls/hr DAILY@09 IV 12/13/24 09:00 12/16/24 08:28 100 MLS/HR Levothyroxine Sodium 25 mcg QAM@0600 PO 12/13/24 06:00 12/17/24 05:49 25 MCG Acetaminophen/ Hydrocodone Bitart 1 tab Q4HP PRN PO 12/12/24 20:45 12/16/24 02:52 1 TAB Ondansetron HCl 4 mg Q4HP PRN IV 12/12/24 20:45 Docusate Sodium 100 mg BIDPRN PRN PO 12/12/24 20:45 12/17/24 05:49 100 MG Enoxaparin Sodium 30 mg DAILY SC 12/13/24 10:00 12/16/24 08:28 30 MG Acetaminophen 650 mg Q6HP PRN PO 12/12/24 20:45 Nitroglycerin 0.4 mg Q5MINP PRN SL 12/12/24 22:30 Morphine Sulfate 2 mg Q30M PRN IV 12/12/24 22:30 Amiodarone HCl 200 mg HS PO 12/13/24 22:00 12/16/24 21:37 200 MG Lactated Ringer's 1,000 ml @ 100 mls/hr Q10H IV 12/15/24 11:30 12/16/24 08:27 100 MLS/HR laboratory and microbiology Laboratory Tests 12/16/24 07:08 Test 12/16/24 07:08 Range/Units Serum Glucose 111 H 74-106 mg/dL Assessment/Plan Patient is a 79-year-old gentleman who presented to the hospital after mechanical fall. He was cooking dinner and turned badly and found himself on the floor. He mentions that he did have some right-sided lower ext discomfort. Few days later he decided to come to the hospital as he was unable to ambulate as usual. In emergency room and since admission, the patient is found to have right femoral neck fracture. Cardiology is involved for cardiac aspects of care and risk stratification prior to possible orthopedic surgery. Patient is known to our practice from outside. Patient is known to have old history of myocardial infarction (nuclear stress test of July 2023 had reported myocardial infarction in [place] territory). Patient denies any chest pains. Patient denies loss of consciousness. Patient also has history of arrhythmia/PVCs/NSVT/SVT as outpatient. It is of note that the patient does have history of multiple myeloma and goes to hematology/oncology regularly (Dr. Gannon). Lying flat in bed. Not in acute distress. No JVD. Mucosa is pink and wet. No goiter. No carotid bruit. Not using accessory muscles of breathing. Lungs are clear to auscultation. Cardiac: Regular, no thrill. Systolic murmur in the apex is heard. Abdomen is soft. Bowel sound is positive. There is no gross mass. Dorsalis pedis is 2+ bilateral Past medical history includes hypertension, hyperlipidemia, multiple myeloma, hypothyroidism, BPH, old history of shingles, old history of CVA (2016), peripheral artery disease, old history of abnormal LFT and also history of PVC/arrhythmia/SVT/NSVT. Nuclear stress test of August 01, 2023 (performed in the office) had reported myocardial infarction in [place]X territory and ejection fraction of 35% WBC: 2.8 - 1.9 - 2.5 Hemoglobin: 13.4 - 11.6 - 11.8 - 11.8 Platelet: 121 - 89 - 100 BNP: 248.68 Troponin (high sensitive): 8 - 9 - 9 Creatinine: 1.08 - 0.89 - 0.96 Potassium: 4.9 - 3.8 - 4.6 Chest x-ray revealed: IMPRESSION: Mild interstitial prominence which may be due to fibrotic changes/ pulmonary vascular congestion. There appears to be sclerosis with deformity of the left posterior and posterolateral 9th rib. Sclerotic focus of the right proximal humerus. Correlate for possible metastatic lesions. Abdomen and pelvis CT scan revealed: IMPRESSION: 1. Acute impacted right femoral basicervical fracture, possibly pathologic fracture. 2. Diffuse osteopenia with mottled appearance of the bones concerning for diffuse underlying marrow disease such as multiple myeloma or lytic metastasis. 3. Lytic, mildly expansile lesion of the posterolateral aspect of the left 9th rib. 4. Moderate splenomegaly. Femoral x-ray (right side) revealed: There is acute impacted right femoral neck fracture. The femoral head remains within the acetabulum. Small lytic lesions involving the femoral diaphysis. Right total knee replacement with intact hardware. CT of the head reported: There is age concordant parenchymal volume loss. There is no evidence of acute intracranial hemorrhage, mass, mass effect midline shift. There is no hydrocephalus or extra-axial fluid collection. There is a small chronic infarct in the posterior right cerebellum. There are few additional small chronic infarcts noted in the right cerebellum. The hancock-white matter differentiation otherwise appears maintained. The visualized paranasal sinuses and mastoid air cells are clear. The calvarium is intact. IMPRESSION: 1. No acute intracranial process. 2. Chronic right cerebellar infarcts as noted above. Pelvis xry reported: Status post right hip arthroplasty. No evidence of hardware complication. Left hip arthroplasty is also visualized. No acute fracture or dislocation. Superficial skin kat are seen in the right lateral hip. EKG reveals sinus rhythm, LVH and PVC Telemetry reveals sinus rhythm, occasional non-transmitted PAC with occasion of NSVT Echocardiogram reported: Left ventricle: Concentric left ventricular hypertrophy was seen. LVEF was 40-45%. Inferior hypokinesis was observed. Right ventricle was mildly dilated with normal systolic function. Both atria were mildly dilated. Aortic valve was not well visualized. Mild aortic stenosis/aortic insufficiency was observed. There was mild mitral regurgitation. There was no tricuspid regurgitation. Pulmonary valve was not well visualized. IVC was mildly dilated. As there was no could tricuspid regurgitation jet, right ventricular systolic pressure could not be estimated. There was no pericardial effusion. Patient is a 79-year-old gentleman who presented after mechanical fall and is found to have femoral neck fracture. There has been no loss of consciousness. Does have baseline history of coronary artery disease and has had ND in LCX territory (nuclear stress test of July 2023) and also history of PVC/SVT/NSVT/arrhythmia as outpatient. Cardiac etiology for presentation is less likely. Images are questioning metastatic lesions, but multiple myeloma could have contributed to the imaging findings also (hematology/oncology evaluation is suggested). Mechanical fall Femoral neck fracture Pathologic femoral neck fracture? Coronary artery disease (ND in LCX territory, old) NSVT PAC VHD, Mild aortic stenosis/aortic insufficiency Heart failure, mid range Anemia, thrombocytopenia, leukopenia (pancytopenia) History of multiple myeloma Splenomegaly (possibly secondary to multiple myeloma) s/p femoral neck fracture surgery (right hip hemiarthroplasty) Cardiac suggestion for management: Manage in telemetry Follow-up electrolytes and kidney function tests and correct abnormalities. Keep potassium above 4 and magnesium above 2 At this point, no repeat ischemic workup is indicated Amiodarone: 200 mg HS Hematology/oncology evaluation is advised Consider Rehab Cardiac salazar, stable Further evaluation and management depends on the above and clinical course A total of 55 minutes was spent reviewing the patient record, examining the patient, making a diagnostic and therapeutic plan, discussing this plan with medical personnel, following up on diagnostic studies and following the patient for clinical stability excluding any and all procedures. At least 50% of this time was spent in direct, [id number] contact. Thank you for allowing me to participate in this patient's care. Further recommendations will depend on patient's clinical course. Please do not hesitate to contact me if you have any questions or concerns. This medical document was created using electronic medical record system with [employer] computerized dictation system. Although this document has been carefully reviewed, there may still be some phonetic and typographical errors. These areas are purely typographical due to the imperfection of the software programs, and do not reflect any compromise in the patient's medical care. Plan discussed with: Patient, Other (nurse) TYLER DISLA MD Dec 17, 2024 06:48
[2024-12-17 08:00] VITALS: PULSE 73
[2024-12-17 08:06] LABS: Hemoglobin 11.9 g/dL (13.5-17.5)
[2024-12-17 08:10] LABS: Hematocrit 34.6 % (41.0-53.0)
[2024-12-17 09:04] VITALS: BP 107/53; PULSE 70; RESP 19; TEMP 97.8; O2SAT 96
[2024-12-17 13:00] VITALS: BP 112/58; PULSE 68; RESP 19; TEMP 97.6; O2SAT 97
--- NOTE | 2024-12-17 13:11 | DVHPN2 ---
Reviewed: Care Plan, H&P, Labs, Medications, Previous Orders, Radiology Changes from previous H/P or p: No Changes Eyes: No Pain, No Vision change, No Conjunctivae inflammation, No Eyelid inflammation, No Other, No Redness ENT: No Ear pain, No Ear discharge, No Nose pain, No Nose discharge, No Nose congestion, No Mouth pain, No Mouth swelling, No Throat pain, No Throat swelling, No Other Cardiovascular: No Chest Pain, No Palpitations, No Orthopnea, No Paroxysmal Noc. Dyspnea, No Edema, No Lt Headedness, No Other Respiratory: No Cough, No Dry, No Shortness of breath, No SOB with excertion, No Wheezing, No Hemoptysis, No Pleuritic Pain, No Sputum, No Other Gastrointestinal: No Nausea, No Vomiting, No Abdominal Pain, No Diarrhea, No Constipation, No Melena, No Hematochezia, No Other Genitourinary: No Dysuria, No Frequency, No Incontinence, No Hematuria, No Retention, No Other Musculoskeletal: other (Right hip pain); No neck pain, No shoulder pain, No arm pain, No back pain, No hand pain, No leg pain, No foot pain Skin: No Rash, No Lesions, No Jaundice, No Bruising, No Other Objective Vitals Vital Signs Date Time Temp Pulse Resp B/P (MAP) Pulse Ox O2 Delivery O2 Flow Rate FiO2 12/17/24 09:04 97.8 70 19 107/53 (71) 96 97.8 12/16/24 20:00 Room Air* 0 21 Intake/Output Intake and Output 12/17/24 07:00 Intake Total 2326 ml Output Total 2158 ml Balance 168 ml Intake Oral 1476 ml IV Total 850 ml Output Urine Total 2158 ml Medications Current Medications Medications Dose Ordered Sig/Marcella Route Start Time Stop Time Status Last Admin Dose Admin Tamsulosin HCl 0.4 mg QPM PO 12/13/24 18:00 12/15/24 18:31 0.4 MG Ceftriaxone Sodium 50 ml @ 100 mls/hr DAILY@09 IV 12/13/24 09:00 12/17/24 09:06 100 MLS/HR Levothyroxine Sodium 25 mcg QAM@0600 PO 12/13/24 06:00 12/17/24 05:49 25 MCG Acetaminophen/ Hydrocodone Bitart 1 tab Q4HP PRN PO 12/12/24 20:45 12/16/24 02:52 1 TAB Ondansetron HCl 4 mg Q4HP PRN IV 12/12/24 20:45 Docusate Sodium 100 mg BIDPRN PRN PO 12/12/24 20:45 12/17/24 05:49 100 MG Enoxaparin Sodium 30 mg DAILY SC 12/13/24 10:00 12/17/24 10:59 30 MG Acetaminophen 650 mg Q6HP PRN PO 12/12/24 20:45 Nitroglycerin 0.4 mg Q5MINP PRN SL 12/12/24 22:30 Morphine Sulfate 2 mg Q30M PRN IV 12/12/24 22:30 Amiodarone HCl 200 mg HS PO 12/13/24 22:00 12/16/24 21:37 200 MG Lactated Ringer's 1,000 ml @ 100 mls/hr Q10H IV 12/15/24 11:30 12/16/24 08:27 100 MLS/HR Laboratory Results Laboratory Tests 12/16/24 07:08 12/17/24 07:00 Urinalysis Test 12/12/24 18:57 Urine Color Yellow (Yellow) Urine Clarity Clear (Clear) Urine pH 5.0 (5.0-9.0) Urine Specific [place] 1.025 (1.001-1.035) Urine Protein Negative (Negative) Urine Ketones Negative (Negative) Urine Blood Negative /uL (Negative) Urine Nitrite Negative (Negative) Urine Bilirubin Negative (Negative) Urine Urobilinogen Normal mg/dL (Negative) Urine Leukocyte Esterase Negative /uL (Negative) Urine RBC 1 /hpf (0 - 3) Urine Microscopic WBC < 1 /HPF (0-3) Urine Squamous Epithelial Cells Few /hpf (<5) Urine Bacteria None seen /hpf (None Seen) Urine Mucus Few (None Seen) Urine Glucose Normal mg/dL (Normal) Labs and/or images reviewed: Labs reviewed by me, Image(s) reviewed by me Assessment/Plan Assessment/Plan Fracture neck right femur: s/p Right hip hemiarthroplasty by Dr Torres on 12-15-24 Mechanical fall BPH: Flomax Dehydration with BUN and creatinine 38 and 1.08: IV fluids Cardiology Dr. Jung cleared for surgery, echo 40 percent ejection fraction Hypothyroidism: Synthroid\ History of multiple myeloma: Gets weekly injections from Dr. Teressa Pinzon H/O Left hip arthroplasty by Dr. Larsen 2017 H/O right knee surgery [address]Nanda Pinzon placed. PCP Dr. Zain Conroy Time Spent 55 minutes Patient is full code Advanced care planning time 20 minutes Plan discussed with: Patient Date of Service: Dec 17, 2024 Billing Provider: JACOBO GALVAN MD Common Visit Codes: [id number] INP/OBS CARE(HIGH) JACOBO GALVAN MD Dec 17, 2024 13:11
[2024-12-17] MEDS ORDERED: HYDR-4902 PO (13:14)
[2024-12-17] MEDS ORDERED: RIVA10TA PO (13:14)
--- NOTE | 2024-12-17 13:19 | DVHDS2 ---
Discharge Summary Date of Admission Dec 12, 2024 at 22:28 Date of Discharge: Dec 17, 2024 Admitting Diagnosis Fracture right femur Wounds: Fracture right femur Labs/Diagnostic Data: Laboratory Results Test 12/17/24 07:00 12/16/24 07:08 12/14/24 14:55 12/13/24 10:06 Hemoglobin 11.9 g/dL (13.5-17.5) Hematocrit 34.6 % (41.0-53.0) White Blood Count 2.5 10^3/uL (4.4-10.8) Red Blood Count 3.29 10^6/uL (4.5-5.90) Mean Corpuscular Volume 103.5 fL (80.0-100.0) Mean Corpuscular Hemoglobin 35.8 pg (28.0-32.0) Mean Corpuscular Hemoglobin Concent 34.6 g/dL (32.0-36.0) Red Cell Distribution Width 15.0 % (11.8-14.3) Platelet Count 100 10^3/uL (140-450) Mean Platelet Volume 8.5 fL (6.9-10.8) Neutrophils (%) (Auto) 44.9 % (37.0-80.0) Lymphocytes (%) (Auto) 43.2 % (10.0-50.0) Monocytes (%) (Auto) 10.2 % (0.0-12.0) Eosinophils (%) (Auto) 1.3 % (0.0-7.0) Basophils (%) (Auto) 0.4 % (0.0-2.0) Neutrophils # (Auto) 1.1 10 ^3/uL (1.6-8.6) Lymphocytes # (Auto) 1.1 10 ^3/uL (0.4-5.4) Monocytes # (Auto) 0.3 10 ^3/uL (0-1.3) Eosinophils # (Auto) 0 10 ^3/uL (0-0.8) Basophils # (Auto) 0 10 ^3/uL (0-0.2) Nucleated Red Blood Cells 0.2 % Sodium Level 136 mmol/L (136-145) Potassium Level 4.6 mmol/L (3.5-5.1) Chloride Level 105 mmol/L (98-107) Carbon Dioxide Level 26 mmol/L (20-31) Anion Gap 5 (5-15) Blood Urea Nitrogen 18 mg/dL (9-23) Creatinine 0.96 mg/dL (0.700-1.30) Glomerular Filtration Rate Calc 79 mL/min (>90) BUN/Creatinine Ratio 18.8 (10.0-20.0) Serum Glucose 111 mg/dL (74-106) Calcium Level 8.7 mg/dL (8.7-10.4) Prothrombin Time 11.5 sec (9.3-11.8) Prothrombin Time INR 1.09 (0.9-1.15) Activated Partial Thromboplast Time 29.6 SEC (24.5-34.5) Differential Total Cells Counted 100.0 (100) Neutrophils % (Manual) 53 (37.0-80.0) Band Neutrophils % (Manual) 0 Lymphocytes % (Manual) 41 (10.0-50.0) Monocytes % (Manual) 6 (0-12) Eosinophils % (Manual) 0 (0-7) Basophils % (Manual) 0 (0.0-2.0) Metamyelocytes % (manual) 0 Myelocytes % (Manual) 0 Promyelocytes % (Manual) 0 Blast Cells % (Manual) 0 Reactive Lymphocytes 0 Platelet Estimate Decreased Macrocytosis Slight Tear Drop Cells Few Ovalocytes Few Laquita Cells Few Schistocytes Few Total Bilirubin 1.5 mg/dL (0.2-1.0) Aspartate Amino Transferase (AST) 17 U/L (13-40) Alanine Aminotransferase (ALT) 26 U/L (7-40) Alkaline Phosphatase 47 U/L (46-116) Total Protein 5.2 g/dL (5.7-8.2) Albumin 3.6 g/dL (3.2-4.8) Test 12/12/24 20:18 12/12/24 19:25 12/12/24 18:57 12/12/24 17:06 Troponin I High Sensitivity 9 ng/L (</=54) Lactic Acid Level 2.4 mmol/L (0.4-2.0) Urine Color Yellow (Yellow) Urine Clarity Clear (Clear) Urine pH 5.0 (5.0-9.0) Urine Specific [place] 1.025 (1.001-1.035) Urine Protein Negative (Negative) Urine Ketones Negative (Negative) Urine Blood Negative /uL (Negative) Urine Nitrite Negative (Negative) Urine Bilirubin Negative (Negative) Urine Urobilinogen Normal mg/dL (Negative) Urine Leukocyte Esterase Negative /uL (Negative) Urine RBC 1 /hpf (0 - 3) Urine Microscopic WBC < 1 /HPF (0-3) Urine Squamous Epithelial Cells Few /hpf (<5) Urine Bacteria None seen /hpf (None Seen) Urine Mucus Few (None Seen) Urine Glucose Normal mg/dL (Normal) Magnesium Level 2.2 mg/dL (1.6-2.6) B-Type Natriuretic Peptide 248.68 pg/mL (0-100) Other Laboratory Tests 12/17/24 07:00 12/16/24 07:08 Brief Hx & Hospital Course: 79-year-old male with a history of BPH hypothyroidism multiple myeloma previous history of left hip arthroplasty and right knee surgery came in after mechanical fall and sustained fracture neck right femur. Underwent right hip hemiarthroplasty by Dr. Vu on 12/15/2024. Postop course uneventful treated with the pain medications received physical therapy cleared for discharge by orthopedic. Discharged home on [place] and Xarelto for prophylaxis for DVT he will follow up with the orthopedic in two weeks. Patient declined any home health services and he has a walker at home Consults/Reason for consult Orthopedic Dr.Mac Barroso Operations or Procedures Right hip hemiarthroplasty Condition at Discharge: Fair Final Diagnosis/Problems List Fracture neck right femur: s/p Right hip hemiarthroplasty by Dr Torres on 12-15-24 Mechanical fall BPH: Flomax Dehydration with BUN and creatinine 38 and 1.08: IV fluids Cardiology Dr. Jung cleared for surgery, echo 40 percent ejection fraction Hypothyroidism: Synthroid\\ History of multiple myeloma: Gets weekly injections from Dr. Teressa Piznon H/O Left hip arthroplasty by Dr. Chava Guan H/O right knee surgery 2014 Discharge Disposition: Home Discharge Instruct/Medications Diet: Cardiac 2g Na,low cholest Activity: Light activity Follow Up/Referral: Resume all previous home medications Follow up with the orthopedic Dr. Boyd in two weeks Medications: [place] Xarelto Transmitted to pharmacy 35 (Time Taken for discharge summary 35 minutes) Discharge Statement: "Patient was advised to return to the ER or call 911 if any headaches, dizziness, shortness of breath, chest pain, abdominal pain, bleeding, fevers, or worsening of medical condition. Patient was counseled about treatment plan, medications, possible side effects, patientverbalized understanding. All questions were answered to the best of my ability. This discharge took greater then 30 minutes in planning, reviewing documentation, counseling the patient, and discussing with other team members." ASSESSMENT ASSESSMENT Hospital Course Improved Assessment Fracture neck right femur: s/p Right hip hemiarthroplasty by Dr Torres on 12-15-24 Mechanical fall BPH: Flomax Dehydration with BUN and creatinine 38 and 1.08: IV fluids Cardiology Dr. Jung cleared for surgery, echo 40 percent ejection fraction Hypothyroidism: Synthroid\\ History of multiple myeloma: Gets weekly injections from Dr. Teressa Pinzon H/O Left hip arthroplasty by Dr. Larsen 2017 H/O right knee surgery 2013 Date of Service: Dec 17, 2024 Billing Provider: JACOBO GALVAN MD Common Visit Codes: 76063-LOH/OBS DISCH DAY >30min JACOBO GALVAN MD Dec 17, 2024 13:19
--- NOTE | 2024-12-17 13:48 | DVHPN2 ---
Progress Note - Dictate Date Seen: Dec 17, 2024 Medical Necessity Reason Pt with a Central, PICC or Fol: No Subjective Patient was lying comfortably in bed during my evaluation reports some postoperative hip pain that is being somewhat improved with the help of pain medication. Patient reports that he was able to get up and walk with the help of physical therapy and his walker and was able to get around the nurses station twice and back to his bed with pain being well controlled. Patient is otherwise feeling well denying any other complaints or concerns during my evaluation. vital signs Vital Sign Date Time Temp Pulse Resp B/P (MAP) Pulse Ox O2 Delivery O2 Flow Rate FiO2 12/17/24 13:00 97.6 68 19 112/58 (76) 97 97.6 12/17/24 08:00 Room Air* 0 21 Total Intake and Output 12/16/24 12/16/24 12/17/24 15:00 23:00 07:00 Intake Total 50 ml 1676 ml 600 ml Output Total 658 ml 1500 ml Balance 50 ml 1018 ml -900 ml medications Current Medications Medications Dose Ordered Sig/Marcella Route Start Time Stop Time Status Last Admin Dose Admin Tamsulosin HCl 0.4 mg QPM PO 12/13/24 18:00 12/15/24 18:31 0.4 MG Ceftriaxone Sodium 50 ml @ 100 mls/hr DAILY@09 IV 12/13/24 09:00 12/17/24 09:06 100 MLS/HR Levothyroxine Sodium 25 mcg QAM@0600 PO 12/13/24 06:00 12/17/24 05:49 25 MCG Acetaminophen/ Hydrocodone Bitart 1 tab Q4HP PRN PO 12/12/24 20:45 12/16/24 02:52 1 TAB Ondansetron HCl 4 mg Q4HP PRN IV 12/12/24 20:45 Docusate Sodium 100 mg BIDPRN PRN PO 12/12/24 20:45 12/17/24 05:49 100 MG Enoxaparin Sodium 30 mg DAILY SC 12/13/24 10:00 12/17/24 10:59 30 MG Acetaminophen 650 mg Q6HP PRN PO 12/12/24 20:45 Nitroglycerin 0.4 mg Q5MINP PRN SL 12/12/24 22:30 Morphine Sulfate 2 mg Q30M PRN IV 12/12/24 22:30 Amiodarone HCl 200 mg HS PO 12/13/24 22:00 12/16/24 21:37 200 MG Lactated Ringer's 1,000 ml @ 100 mls/hr Q10H IV 12/15/24 11:30 12/16/24 08:27 100 MLS/HR objective A&O x4 in no acute distress Hip range of motion grossly limited with pain on movement Dressing clean, dry, and intact No distal edema or calf tenderness to palpation Neurovascularly intact with cap refill less than 2 seconds laboratory and microbiology Laboratory Tests 12/17/24 07:00 12/16/24 07:08 Test 12/16/24 07:08 Range/Units Serum Glucose 111 H 74-106 mg/dL Assessment/Plan Continue current management as well as pain control and physical therapy, patient reports that he was told that he was going to be discharged home later today, advised patient to remain weight-bearing as tolerated with the assistance of a walker. I advised the patient to maintain his dressings clean, dry, and intact. I also instructed the patient to follow up with our office in 10-14 days for his 1st postoperative evaluation. He understood and agreed. Plan discussed with: Patient MARXROSALINA Dec 17, 2024 13:48
== END 2024-12-17 15:59 | disposition home or self-care (01) | DRG 522 ==
LOC: ER 13:11 → TELE 22:28 → TELE-WESTW 22:29 → OVERFLOW 12-17 15:33 → WEST WING 12-17 15:48
PROVIDERS: ADMIT Nurse Practitioner Family; ATTEND Family Medicine
PROC: 0SRR0J9 Replacement of Right Hip Joint, Femoral Surface with Synthetic Substitute, Cemented, Open Approach (ICD-10-PCS; principal; 2024-12-15 09:28)
DX: S72.041A Displaced fracture of base of neck of right femur, initial encounter for closed fracture (principal); C90.00 Multiple myeloma not having achieved remission; E87.20 Acidosis, unspecified; D61.818 Other pancytopenia; D69.6 Thrombocytopenia, unspecified; E03.9 Hypothyroidism, unspecified; E86.0 Dehydration; E78.5 Hyperlipidemia, unspecified; N40.0 Benign prostatic hyperplasia without lower urinary tract symptoms; I73.9 Peripheral vascular disease, unspecified; I25.10 Atherosclerotic heart disease of native coronary artery without angina pectoris; I11.0 Hypertensive heart disease with heart failure; I50.9 Heart failure, unspecified; Z96.651 Presence of right artificial knee joint; Z82.49 Family history of ischemic heart disease and other diseases of the circulatory system; Z80.0 Family history of malignant neoplasm of digestive organs; Z79.899 Other long term (current) drug therapy; Z86.73 Personal history of transient ischemic attack (TIA), and cerebral infarction without residual deficits; I25.2 Old myocardial infarction; Z86.19 Personal history of other infectious and parasitic diseases; W18.39XA Other fall on same level, initial encounter; Y93.89 Activity, other specified; Y92.89 Other specified places as the place of occurrence of the external cause; Y99.8 Other external cause status
CPT/HCPCS: 36415; 70450; 71045; 72170; 74176; 80048; 80053; 81001; 83605; 83735; 83880; 84484; 85014; 85018; 85025; 85610; 85730; 86850; 86900; 86901; 93005; 93306; 96365; 97110; 97116; 97163; 99291; G0378; J0131; J1885; J2250; J2543; J2704; J3490

== ENCOUNTER 2025-01-07 08:15 | Inpatient (IN) | payer MEDICARE, BC ==
[~2025-01-07] VITALS: Ht 177.8 cm; Wt 72.7 kg
[~2025-01-07 08:15] MED LIST changes: +ACYC200C22 PO; -CELE200C PO; +GABA-1254 PO; +HYDR-4902 PO; +LEVO100T8 PO; -LEVO25TA6 PO; +METO25TA93 PO; +PERCOT PO; +PRAV20TA3 PO; +RIVA10TA PO; -TAMS-35 PO; +TAMS0.4C39 PO
--- NOTE | 2025-01-07 08:26 | ED.PDOC ---
Musculoskeletal HPI Comments 79 year old male BIBA and accompanied by son presents to the ED with chief complaint of right hip dislocation. EMS reports patient had a recent right partial hip replacement performed [address] Boyd in [facility]. EMS relays that the patient had went to sit on the toilet this morning when all of a sudden his right hip became dislocated with positive rotation noted. Patient is unable to ambulate due to the dislocation. Patient denies any numbness, weakness, or any other symptom at this time. Chief Complaint: Lower Extremity Time Seen by MD: 08:21 Primary Care Provider: ETTA Reviewed Notes: Nurses Notes, Felt Carbonizer Notes, Medications, Allergies Allergies: Coded Allergies: NO KNOWN ALLERGIES (Unverified , 08/02/19) Home Meds Active Scripts Hydrocodone-Acetaminophen (Hydrocodone Bitartrate/AC 5-325 mg) 1 Tab Tab, 1 TAB PO QID PRN, #40 TAB Prov:JACOBO GALVAN MD 12/17/24 Rivaroxaban (XARELTO) 10 Mg Tab, 1 TAB PO DAILY, #14 TAB Prov:JACOBO GALVAN MD 12/17/24 Reported Medications Oxycodone W/ Acetaminophen (Percocet 5/325MG) 1 Tab Tb, 1 TAB PO Q6HR PRN for PAIN SCALE 1 THRU 6, #60 TAB 12/13/24 Gabapentin (NEURONTIN CAPSULE) 300 Mg Cp, 300 MG PO TID, CAP 12/13/24 Levothyroxine Sodium (Levothyroxine Sodium) 100 Mcg Tab, 100 MCG PO QAM for 30 Days, MCG 12/13/24 Metoprolol Succinate (Metoprolol Succinate Er) 25 Mg Tab, 25 MG PO DAILY for 30 Days, MG 12/13/24 Tamsulosin Hcl (Tamsulosin Hcl) 0.4 Mg Cap, 0.4 MG PO EOD for 30 Days, MG 12/13/24 Acyclovir (Acyclovir) 200 Mg Cap, 400 MG PO BID, TAB 12/13/24 Pravastatin Sodium (PRAVACHOL TABLET) 20 Mg Tb, 20 MG PO HS, TAB 12/13/24 Dutasteride (Avodart) 0.5 Mg Cap, 0.5 MG PO EOD, CAP 12/13/24 Information Source: Patient, Relative (Son), Emergency Med Personnel Mode of Arrival: EMS Location: Right Extremity Location: Hip Timing: Hours Prehospital treatment: None Severity: Moderate Able to Move Extremity: No Bear Weight: No Pain: Moderate Mechanism: Spontaneous Circumstances: Spontaneous Onset of Symptoms: Spontaneous DVT Risk Factors: NONE History of: Hip Dislocation, Hip Operation Past Medical History PAST MEDICAL HISTORY: Thyroid Past Medical History (Other): Arrhythmia Surgical History: Denies all surgeries Family History Family History: No family hx of HTN, Unobtainable Social History Smoker: Non-Smoker Alcohol: Rarely Drugs: Denies Drug Use Lives In: Home Constitutional: denies: chills, diaphoresis, fatigue, fever, malaise, sweats, weakness, others EENTM: denies: blurred vision, double vision, ear bleeding, ear discharge, ear drainage, ear pain, ear ringing, eye pain, eye redness, hearing loss, mouth pain, mouth swelling, nasal discharge, nose bleeding, nose congestion, nose pain, photophobia, tearing, throat pain, throat swelling, voice changes, others Respiratory: denies: cough, hemoptysis, orthopnea, SOB at rest, shortness of breath, SOB with excertion, stridor, wheezing, others Cardiovascular: denies: chest pain, dizzy spells, diaphoresis, Dyspnea on exertion, edema, irregular heart beat, left arm pain, lightheadedness, palpitations, PND, syncope, others Gastrointestinal: denies: abdomen distended, abdominal pain, blood streaked bowels, constipated, diarrhea, dysphagia, difficulty swallowing, hematemesis, melena, nausea, poor appetite, poor fluid intake, rectal bleeding, rectal pain, vomiting, others Genitourinary: denies: burning, dysuria, flank pain, frequency, hematuria, incontinence, penile discharge, penile sore, pain, testicle pain, testicle swelling, urgency, others Neurological: denies: dizziness, fainting, headache, left sided numbness, left sided weakness, numbness, paresthesia, pre-existing deficit, right sided numbness, right sided weakness, seizure, speech problems, tingling, tremors, weakness, others Musculoskeletal: reports: others (Rt hip dislocation); denies: back pain, gout, joint pain, joint swelling, muscle pain, muscle stiffness, neck pain Integumetry: denies: bruises, change in color, change in hair/nails, dryness, laceration, lesions, lumps, rash, wounds, others Allergic/Immunocompromised: denies: Difficulty Healing, Frequent Infections, Hives, Itching, others Hematologic/Lymphatic: denies: anemia, blood clots, easy bleeding, easy bruising, swollen glands, others Endocrine: denies: excessive hunger, excessive sweating, excessive thirst, excessive urination, flushing, intolerance to cold, intolerance to heat, unexplained weight gain, unexplained weight loss, others Psychiatric: denies: anxiety, bipolar disorder, depression, hopeless, panic disorder, schizophrenia, sleepless, suicidal, others All Other Systems: Reviewed and Negative Physical Exam General Appearance: Moderate Distress, Normal HEENT: Normal ENT Inspection, PERRL/EOMI Neck: Full Range of Motion, Non-Tender, Normal, Normal Inspection Respiratory: Chest Non-Tender, Lungs Clear, No Accessory Muscle Use, No Respiratory Distress, Normal Breath Sounds Cardiovascular: No Edema, No JVD, No Murmur, No Gallop, Normal Peripheral Pulses, Regular Rate/Rhythm Breast Exam: Deferred Gastrointestinal: No Organomegaly, Non Tender, No Pulsatile Mass, Normal Bowel Sounds, Soft Genitalia: Deferred Pelvic: Deferred Rectal: Deferred Extremities: Decreased range of motion (Right lower extremity), No calf tenderness, Normal capillary refill, No pedal edema Musculoskeletal : Apperance: Normal Neurologic: Alert, No Motor Deficits, Normal Affect, Normal Mood, No Sensory Deficits Cerebellar Function: NOT DONE Reflexes: NOT DONE Skin: Dry, Normal Color, Warm Peripheral Pulses: 3+ Radial (R), 3+ Radial (L) Lymphatic: No Adenopathy Was a procedure done? Was a procedure done?: No Differential Diagnosis EXT Differential Diagnosis: Dislocation, Strain X-Ray, Labs, Meds, VS Vital Signs Date Time Temp Pulse Resp B/P (MAP) Pulse Ox O2 Delivery O2 Flow Rate FiO2 01/07/25 08:15 97.8 71 17 163/74 (103) 94 01/07/25 08:15 Room Air* 0 21 Patient alert. Complaining of right hip pain. Recently had surgery on that hip. Vitals stable. Blood pressure elevation could be from pain. History of hypertension. Was given pain medication. Orthopedic surgery was done here three weeks ago. Reviewed his previous visit. Orthopedic consultation. Explained to the patient. Continue monitoring. Time of 1ST Reevaluation: 09:21 Reevaluation 1ST: Unchanged Patient Education/Counseling: Diagnosis, Treatment Family Education/Counseling: Diagnosis, Treatment Additional Information Previous visit documents reviewed: 12/12/24 for Right Femur fracture and surgery The following tests were ordered, and results were reviewed by me: Pelvis XR, CBC, BMP, UA Additional Information was gathered from interviewing the following independent historians: Son, EMS I reviewed and agreed with the following test results read by other providers: Pelvis XR I discussed treatment and results with medical personnel and son. Departure 1 Departure Time of Disposition: 08:31 Impression: Primary Impression: Dislocation of right hip Qualified Codes: S73.004A - Unspecified dislocation of right hip, initial encounter Additional Impression: Hypertension Qualified Codes: I10 - Essential (primary) hypertension Disposition: ADMITTED INPATIENT Admit to: Med Surg Condition: Guarded Critical Care Note Critical Care Time?: No Stability Stability form required: No Heart Score Heart Score: Heart Score Response (Comments) Value History Slightly Suspicious 0 EKG Normal 0 Age >65 2 Risk Factors >3 or Hx ASHD 2 Troponin N/A 0 Total 4 I personally scribed for MARYANN ARRIAGA MD ([email or web address]) on 01/07/25 at 08:26. Electronically submitted by Steve Romero ([email or web address]). I personally scribed for MARYANN ARRIAGA MD ([email or web address]) on 01/07/25 at 08:27. Electronically submitted by Steve Romero ([email or web address]). MARYANN ARRIAGA MD Jan 07, 2025 08:26
[2025-01-07 09:16] LABS: Basophils # (auto) 0 10 ^3/uL (0-0.2); Eosinophils # (auto) 0 10 ^3/uL (0-0.8); Monocytes # (auto) 0.1 10 ^3/uL (0-1.3); Red Cell Distribution Width 16.1 % (11.8-14.3)
--- NOTE | 2025-01-07 09:17 | DVH ---
CLINICAL INDICATION: Trauma TECHNIQUE: 2 radiographic views of the pelvis were obtained. Comparison: XY PELVIS AP on DOS: 12/15/24 FINDINGS/IMPRESSION: There is superior right hip dislocation. Status post bilateral hip arthroplasties.
[2025-01-07 09:18] LABS: Urine Bacteria None Seen /hpf (None Seen)
[2025-01-07 09:19] LABS: Basophils % (auto) 0.5 % (0.0-2.0); Hematocrit 36.8 % (41.0-53.0); Hemoglobin 12.3 g/dL (13.5-17.5); Lymphocytes # (auto) 0.9 10 ^3/uL (0.4-5.4); Lymphocytes % (auto) 47.1 % (10.0-50.0); Mean Corpuscular Hemoglobin 34.9 pg (28.0-32.0); Mean Corpuscular Hgb Conc. 33.4 g/dL (32.0-36.0); Mean Corpuscular Volume 104.3 fL (80.0-100.0); Monocytes % (auto) 4.2 % (0.0-12.0); Neutrophils # (auto) 0.9 10 ^3/uL (1.6-8.6); Neutrophils % (auto) 47.2 % (37.0-80.0); Nucleated Red Blood Cells % 0.1 %; Platelet Count (auto) 72 10^3/uL (140-450); Red Blood Cells 3.53 10^6/uL (4.5-5.90)
[2025-01-07 09:23] LABS: Potassium 4.3 mmol/L (3.5-5.1); Sodium 142 mmol/L (136-145)
[2025-01-07 09:24] LABS: Anion Gap 7 (5-15); Carbon Dioxide 25 mmol/L (20-31)
[2025-01-07 09:29] LABS: BUN/Creatinine Ratio 21.2 (10.0-20.0); Blood Urea Nitrogen 21 mg/dL (9-23)
[2025-01-07 09:44] LABS: Urine Blood Negative /uL (Negative); Urine Clarity Clear (Clear); Urine Color Light-Yellow (Yellow); Urine Protein, UAD Negative (Negative); Urine Squamous Epithelial Cell None Seen /hpf (<5); Urine Urobilinogen Normal (Negative); Urine WBC 1 /HPF (0-3); Urine pH 6.5 (5.0-9.0)
[2025-01-07 09:47] LABS: Calcium 8.4 mg/dL (8.7-10.4); Chloride 110 mmol/L (98-107); Glucose 126 mg/dL (74-106)
[2025-01-07] MEDS: ONDANSETRON HCL 4 MG/2 ML VIAL IV ONE (09:54)
[2025-01-07] MEDS: MORPHINE SULFATE 4 MG/ML SYR/VIAL IV ONE (09:56)
[2025-01-07] MEDS ORDERED: ONDANSETRON HCL 4 MG/2 ML VIAL IV PRN (11:15)
[2025-01-07] MEDS ORDERED: HYDROcodone-ACET 5/325MG TAB PO PRN (11:15)
[2025-01-07] MEDS ORDERED: MORPHINE SULFATE INJ 2 MG/ml SYRG IV PRN (11:15)
[2025-01-07] MEDS ORDERED: ACETAMINOPHEN 325 MG TAB PO PRN (11:15)
[2025-01-07] MEDS ORDERED: DOCUSATE SOD 100 MG CAP PO PRN (11:15)
--- NOTE | 2025-01-07 11:40 | DVHHP2 ---
History of Present Illness Reason for Visit: right hip pain History of Present Illness Shyam Galarza is an 79-year-old male with past medical history of hypothyroidism, arrhythmia, and, multiple myeloma, who came in with complaints of right hip pain. Patient and son are at the bedside. Patient recently had a partial right hip replacement on 12/15/[address] Morales. Today he got up and sat to use the bathroom and his hip became dislocated. Cardiovascular: Other (arrhythmia) Heme/Onc: Cancer (multiple myeloma) Endocrine: Hypothyroidism Past Surgical History: Total hip replacement (left total, partial right hip replacement on 12/15/2024), Total knee replacement (right), Tonsillectomy Smoke: No ALCOHOL: none Drugs: None Lives: with Family Domestic Violence: Neg Review of Systems Constitutional: No: Fever, Chills, Sweats, Weakness, Malaise, Other Eyes: No: Pain, Vision change, Conjunctivae inflammation, Eyelid inflammation, Other, Redness ENT: No: Ear pain, Ear discharge, Nose pain, Nose discharge, Nose congestion, Mouth pain, Mouth swelling, Throat pain, Throat swelling, Other Respiratory: No: Cough, Dry, Shortness of breath, SOB with excertion, Wheezing, Hemoptysis, Pleuritic Pain, Sputum, Wheezing, Other Cardiovascular: No: Chest Pain, Palpitations, Orthopnea, Paroxysmal Noc. Dyspnea, Edema, Lt Headedness, Other Gastrointestinal: No: Nausea, Vomiting, Abdominal Pain, Diarrhea, Constipation, Melena, Hematochezia, Other Genitourinary: No Dysuria, No Frequency, No Incontinence, No Hematuria, No Retention, No Other Musculoskeletal: leg pain (right hip); No: other, neck pain, shoulder pain, arm pain, back pain, hand pain, foot pain Skin: No: Rash, Lesions, Jaundice, Bruising, Other Neurological: No: Weakness, Numbness, Incoordination, Change in speech, Confusion, Seizures, Other Allergies: Coded Allergies: NO KNOWN ALLERGIES (Unverified , 08/02/19) Medications Current Medications Medications Dose Ordered Sig/Marcella Route Start Time Stop Time Status Last Admin Dose Admin Sodium Chloride 1,000 ml @ 60 mls/hr [id number] IV 01/07/25 11:15 UNV Acetaminophen/ Hydrocodone Bitart 1 tab Q4HP PRN PO 01/07/25 11:15 UNV Ondansetron HCl 4 mg Q4HP PRN IV 01/07/25 11:15 UNV Docusate Sodium 100 mg BIDPRN PRN PO 01/07/25 11:15 UNV Acetaminophen 650 mg Q6HP PRN PO 01/07/25 11:15 UNV Morphine Sulfate 2 mg Q4HPRN PRN IV 01/07/25 11:15 UNV Exam Vital Signs Vital Signs Date Time Temp Pulse Resp B/P (MAP) Pulse Ox O2 Delivery O2 Flow Rate FiO2 01/07/25 10:26 74 16 138/59 01/07/25 08:15 97.8 94 01/07/25 08:15 Room Air* 0 21 General Appearance: Alert, Oriented X3, Cooperative, moderate distress HEENT: Atraumatic, Mucous membr. moist/pink Respiratory: Clear to auscultation, Normal air movement Cardiovascular: Regular rate, Normal S1, Normal S2, No murmurs Abdominal: Normal bowel sounds, Soft, No tenderness Extremities: No clubbing, Normal pulses, Other (right hip is dislocated) Skin: No rashes, No breakdown Neuro: Normal speech Psych/Mental Status: Mental status NL, Mood NL Labs/Xrays Labs Test 01/07/25 08:48 01/07/25 08:30 Range/Units White Blood Count 2.0 L 4.4-10.8 10^3/uL Red Blood Count 3.53 L 4.5-5.90 10^6/uL Hemoglobin 12.3 L 13.5-17.5 g/dL Hematocrit 36.8 L 41.0-53.0 % Mean Corpuscular Volume 104.3 H 80.0-100.0 fL Mean Corpuscular Hemoglobin 34.9 H 28.0-32.0 pg Mean Corpuscular Hemoglobin Concent 33.4 32.0-36.0 g/dL Red Cell Distribution Width 16.1 H 11.8-14.3 % Platelet Count 72 L 140-450 10^3/uL Mean Platelet Volume 8.9 6.9-10.8 fL Neutrophils (%) (Auto) 47.2 37.0-80.0 % Lymphocytes (%) (Auto) 47.1 10.0-50.0 % Monocytes (%) (Auto) 4.2 0.0-12.0 % Eosinophils (%) (Auto) 1.0 0.0-7.0 % Basophils (%) (Auto) 0.5 0.0-2.0 % Neutrophils # (Auto) 0.9 L 1.6-8.6 10 ^3/uL Lymphocytes # (Auto) 0.9 0.4-5.4 10 ^3/uL Monocytes # (Auto) 0.1 0-1.3 10 ^3/uL Eosinophils # (Auto) 0 0-0.8 10 ^3/uL Basophils # (Auto) 0 0-0.2 10 ^3/uL Nucleated Red Blood Cells 0.1 % Sodium Level 142 136-145 mmol/L Potassium Level 4.3 3.5-5.1 mmol/L Chloride Level 110 H 98-107 mmol/L Carbon Dioxide Level 25 20-31 mmol/L Anion Gap 7 5-15 Blood Urea Nitrogen 21 9-23 mg/dL Creatinine 0.99 0.700-1.30 mg/dL Glomerular Filtration Rate Calc 77 >90 mL/min BUN/Creatinine Ratio 21.2 H 10.0-20.0 Serum Glucose 126 H 74-106 mg/dL Calcium Level 8.4 L 8.7-10.4 mg/dL Urine Color Light-yellow Yellow Urine Clarity Clear Clear Urine pH 6.5 5.0-9.0 Urine Specific [place] 1.020 1.001-1.035 Urine Protein Negative Negative Urine Ketones Negative Negative Urine Blood Negative Negative /uL Urine Nitrite Negative Negative Urine Bilirubin Negative Negative Urine Urobilinogen Normal Negative mg/dL Urine Leukocyte Esterase Negative Negative /uL Urine RBC 1 0 - 3 /hpf Urine Microscopic WBC 1 0-3 /HPF Urine Squamous Epithelial Cells None seen <5 /hpf Urine Bacteria None seen None Seen /hpf Urine Glucose Normal Normal mg/dL TECHNIQUE: 2 radiographic views of the pelvis were obtained. Comparison: XY PELVIS AP on DOS: 12/15/24 FINDINGS/IMPRESSION: There is superior right hip dislocation. Status post bilateral hip arthroplasties. Assessment/Plan Assessment/Plan Assessment: Dislocation of right hip, Hypothyroidism, Hypertension, Multiple myeloma, Plan: Admit to Med-Surg, Orthopedic consult, Pain management, IV hydration, NPO until seen by orthopedic, Physical therapy evaluation, Home medications reconciled, Plan discussed with: Patient, Son My Orders Orders - CAREN KAPOOR ENGINEERING OFFICER Procedure Category Date Status Time Admit ADMIT 3/4/25 Transmitted 11:05 Code Status CODE 01/07/25 Transmitted 11:05 0.9% Ns 1000 Ml PHA 01/07/25 Transmitted 11:15 Hydrocodone-Acet PHA 01/07/25 Transmitted 5/325mg Tab ([place] 11:15 Ondansetron Hcl PHA 01/07/25 Transmitted (Zofran) 11:15 Docusate Sodium PHA 01/07/25 Transmitted Capsule (Colace 11:15 Complete Blood Count LAB 01/08/25 Verified 04:00 Comprehensive LAB 01/08/25 Verified Metabolic Panel 04:00 Npo (Nothing By DIET 01/07/25 Transmitted Mouth) Diet Lunch Condition: Serious ASIA 01/07/25 Transmitted 11:05 Acetaminophen Tablet PHA 01/07/25 Transmitted (Tylenol Tablet) 11:15 Morphine Sulfate PHA 01/07/25 Transmitted Injection 11:15 * Orthopedic Consult CONS 01/07/25 Transmitted 11:05 Date of Service: Jan 07, 2025 Billing Provider: CAREN AKPOOR Common Visit Codes: [id number] INP/OBS CARE (MOD) CAREN KAPOOR Jan 07, 2025 11:40
[2025-01-07] MEDS: KETAMINE 50mg/ML 10ml Vial (500mg/10ml) IV ONE (13:35)
--- NOTE | 2025-01-07 13:44 | DVH ---
INDICATION: RIGHT HIP REDUCTION TECHNIQUE: Single AP view of the pelvis was obtained. COMPARISON: None FINDINGS/Impression : S/P reduction of right hip.
--- NOTE | 2025-01-07 14:06 | DVH ---
CLINICAL INDICATION: RIGHT HIP REDUCTION TECHNIQUE: 3 radiographic views of the right hip were obtained. Comparison: XY R HIP 1V XRAY on DOS: 01/07/25 FINDINGS/IMPRESSION: Bipolar prosthesis in normal alignment in the right acetabulum. No acute fracture seen The visualized joint space is well maintained. The alignment is anatomical. There is no radiopaque foreign body.
[2025-01-07] MEDS: SODIUM CHLORIDE 0.9% 1,000 ML IV SCH (14:18)
--- NOTE | 2025-01-07 20:00 | DVHINCON2 ---
Consult Note Consult Consult Note Chief complaint Right hip pain after attempting to get off toilet seat History of present illness Patient is a 79-year-old male with history of right hip mL arthroplasty 3 weeks ago. Patient presented to emergency room with right hip pain after an episode where the attempting to stand up from the toilet. Emergency room evaluation, including x-rays imaging, confirmed a dislocation of right hip prosthesis. Orthopedic consultation was requested for further management. Physical exam General: No acute distress. Neurological: Grossly intact neurovascular exam on right lower extremity. Musculoskeletal: Right leg internally rotated and shortened. Imaging: X-ray completed in emergency room: Right hip dislocation confirmed. Assessment: Right hip dislocation status post right hip hemiarthroplasty 3 weeks ago. Plan: 1. Closed reduction of right hip dislocation: -procedure discussed with patient and son at bedside including risks benefits alternatives. -consent obtained. -case discussed with on-call surgeon Dr. Vicente and Dr. Bradley, who recommended proceeding with reduction. 2. Procedure: Closed reduction of right hip dislocation: -anesthesia: Ketamine sedation (see orders/consent for detail) -personnel: Respiratory team present for monitoring; bedside nurse assisting. --Technique: After adequate sedation was achieved with ketamine, a closed reduction of the right hip was performed successfully. Postreduction images confirmed appropriate positioning of femoral head with the acetabulum. No acute/new fractures noted. No complication noted. -- post procedure care: Postreduction right hip range of motion grossly intact, neurovascularly full and intact. Patient alert oriented x3. Denies any right hip pain or any other concerns at this time. Patient placed in abduction pillow, hip dislocation precautions discussed in detail with patient and his son. post reduction images with Dr. Lainez/Dr. Vicente who confirmed satisfactory reduction. Also noted minor valgus femoral component [place] [facility] [place]--no evidence of loosening, no further workup recommended at this time. 3. Admission and monitoring: Recommendation for hospital team: Patient to be admitted for overnight observation , recommend physical therapy evaluation. Pain control per medicine team Comorbidity management per medicine team Discharge plan : If patient demonstrated good mobility with physical therapy with no further concern by Physical therapy and cleared by Orthopedic team then patient can be discharged with orthopedic follow-up in 1 week with x-ray E/M code 92937-91(moderate complexity with modifier 57) CPT code 53808 ICD 10 diagnostic code right hip dislocation status post right hip hemiarthroplasty Plan discussed with: Patient, Son, Other (Dr. Vicente and Dr. Wang) Visit Coding Surgery Date of Service if different f: Jan 07, 2025 Billing Provider: BRIANA MARTINEZ Surgery Visit Codes: 92028 - INP CONSULT <55 MIN Outpatient Surgery Codes: 15434 - OP CONSULT MODERATE BRIANA MARTINEZ PAC Jan 07, 2025 20:00
[2025-01-07 20:13] VITALS: PULSE 68; RESP 22; O2SAT 98
[2025-01-07] MEDS: PRAVASTATIN SODIUM 20 MG TAB PO SCH (22:38)
[2025-01-07] MEDS: ACYCLOVIR 400 MG TAB PO SCH (22:39)
[2025-01-07 23:37] VITALS: PULSE 64; RESP 17; O2SAT 93
[2025-01-08] VITALS (7 sets, daily range): BP systolic 100–130; BP diastolic 50–72; PULSE 63–72; RESP 16–18; TEMP 97.3–98.3; O2SAT 93–97
[2025-01-08 06:07] LABS: Basophils # (auto) 0 10 ^3/uL (0-0.2); Basophils % (auto) 0.4 % (0.0-2.0); Eosinophils # (auto) 0 10 ^3/uL (0-0.8); Hemoglobin 10.8 g/dL (13.5-17.5); Monocytes # (auto) 0.1 10 ^3/uL (0-1.3); Neutrophils # (auto) 1.1 10 ^3/uL (1.6-8.6); Nucleated Red Blood Cells % 0.2 %; White Blood Cell 2.3 10^3/uL (4.4-10.8)
[2025-01-08 06:10] LABS: Eosinophils % (auto) 0.6 % (0.0-7.0); Hematocrit 31.3 % (41.0-53.0); Lymphocytes % (auto) 45.6 % (10.0-50.0); Mean Corpuscular Hgb Conc. 34.6 g/dL (32.0-36.0); Monocytes % (auto) 4.1 % (0.0-12.0); Neutrophils % (auto) 49.3 % (37.0-80.0); Platelet Count (auto) 75 10^3/uL (140-450); Red Blood Cells 3.01 10^6/uL (4.5-5.90); Red Cell Distribution Width 15.5 % (11.8-14.3)
[2025-01-08 06:21] LABS: Alanine Aminotransferase 21 U/L (7-40); Albumin 3.3 g/dL (3.2-4.8); Alkaline Phosphatase 83 U/L (46-116); Anion Gap 7 (5-15); Aspartate Aminotransferase 19 U/L (13-40); BUN/Creatinine Ratio 22.2 (10.0-20.0); Bilirubin, Total 2.6 mg/dL (0.2-1.0); Blood Urea Nitrogen 22 mg/dL (9-23); Calcium 8.3 mg/dL (8.7-10.4); Carbon Dioxide 26 mmol/L (20-31); Chloride 109 mmol/L (98-107); Glucose 92 mg/dL (74-106); Potassium 4.9 mmol/L (3.5-5.1); Sodium 142 mmol/L (136-145); Total Protein 4.8 g/dL (5.7-8.2)
[2025-01-08] MEDS: LEVOTHYROXINE SODIUM 100 MCG TAB PO SCH (06:30)
[2025-01-08] MEDS: METOPROLOL SUCCINATE XL 50 MG TAB PO SCH (09:33)
--- NOTE | 2025-01-08 16:48 | DVHPN2 ---
Subjective Seen and examined at bedside, patient is on oxygen, will attempt to titrate down. Get CXR. Encourage use of Incentive Spirometer. Changes from previous H/P or p: No Changes Eyes: No Pain, No Vision change, No Conjunctivae inflammation, No Eyelid inflammation, No Other, No Redness ENT: No Ear pain, No Ear discharge, No Nose pain, No Nose discharge, No Nose congestion, No Mouth pain, No Mouth swelling, No Throat pain, No Throat swelling, No Other Cardiovascular: No Chest Pain, No Palpitations, No Orthopnea, No Paroxysmal Noc. Dyspnea, No Edema, No Lt Headedness, No Other Respiratory: No Cough, No Dry, No Shortness of breath, No SOB with excertion, No Wheezing, No Hemoptysis, No Pleuritic Pain, No Sputum, No Other Gastrointestinal: No Nausea, No Vomiting, No Abdominal Pain, No Diarrhea, No Constipation, No Melena, No Hematochezia, No Other Genitourinary: No Dysuria, No Frequency, No Incontinence, No Hematuria, No Retention, No Other Musculoskeletal: No other, No neck pain, No shoulder pain, No arm pain, No back pain, No hand pain; leg pain (right hip); No foot pain Skin: No Rash, No Lesions, No Jaundice, No Bruising, No Other Objective Vitals Vital Signs Date Time Temp Pulse Resp B/P (MAP) Pulse Ox O2 Delivery O2 Flow Rate FiO2 01/08/25 13:00 97.8 71 18 124/72 (89) 97 97.8 01/08/25 07:30 Room Air* 0 21 Intake/Output Intake and Output 01/08/25 07:00 Output Total 650 ml Balance -650 ml Output Urine Total 650 ml General Appearance: Alert, Oriented X3, Cooperative, No acute distress HEENT: Atraumatic Lungs: Other (diminished) Cardiovascular: Regular rate, Normal S1, Normal S2 Abdomen: Normal bowel sounds, Soft Rectal: Deferred Psych/Mental Status: Mental status NL Medications Current Medications Medications Dose Ordered Sig/Marcella Route Start Time Stop Time Status Last Admin Dose Admin Acetaminophen/ Hydrocodone Bitart 1 tab Q4HP PRN PO 01/07/25 11:15 Ondansetron HCl 4 mg Q4HP PRN IV 01/07/25 11:15 Docusate Sodium 100 mg BIDPRN PRN PO 01/07/25 11:15 Acetaminophen 650 mg Q6HP PRN PO 01/07/25 11:15 Morphine Sulfate 2 mg Q4HPRN PRN IV 01/07/25 11:15 Levothyroxine Sodium 100 mcg QAM PO 01/08/25 07:00 01/08/25 06:30 100 MCG Pravastatin Sodium 20 mg HS PO 01/07/25 22:00 01/07/25 22:38 20 MG Tamsulosin HCl 0.4 mg EOD PO 01/09/25 10:00 Acyclovir 400 mg BID PO 01/07/25 22:00 01/08/25 09:32 400 MG Patient Own Medication 0.5 mg EOD PO 01/09/25 10:00 Metoprolol Succinate 25 mg DAILY PO 01/08/25 10:00 01/08/25 09:33 25 MG Laboratory Results Laboratory Tests 01/08/25 05:09 Chemistry Test 01/08/25 05:09 Albumin 3.3 g/dL (3.2-4.8) Calcium Level 8.3 mg/dL (8.7-10.4) L Total Protein 4.8 g/dL (5.7-8.2) L LFT Test 01/08/25 05:09 Alanine Aminotransferase (ALT) 21 U/L (7-40) Alkaline Phosphatase 83 U/L (46-116) Aspartate Amino Transferase (AST) 19 U/L (13-40) Total Bilirubin 2.6 mg/dL (0.2-1.0) H Urinalysis Test 01/07/25 08:30 Urine Color Light-yellow (Yellow) Urine Clarity Clear (Clear) Urine pH 6.5 (5.0-9.0) Urine Specific [place] 1.020 (1.001-1.035) Urine Protein Negative (Negative) Urine Ketones Negative (Negative) Urine Blood Negative /uL (Negative) Urine Nitrite Negative (Negative) Urine Bilirubin Negative (Negative) Urine Urobilinogen Normal mg/dL (Negative) Urine Leukocyte Esterase Negative /uL (Negative) Urine RBC 1 /hpf (0 - 3) Urine Microscopic WBC 1 /HPF (0-3) Urine Squamous Epithelial Cells None seen /hpf (<5) Urine Bacteria None seen /hpf (None Seen) Urine Glucose Normal mg/dL (Normal) Assessment/Plan Assessment/Plan Dislocation of right hip- s/p Reduction Acute Resp Failure???- Titrate oxygen off Hypothyroidism- Cont Meds Hypertension- Monitor and adjust meds as needed Multiple myeloma- Outpatient followup Anemia Goals of care discussion >19 mins FULL CODE Plan discussed with: Patient My Orders Orders - WONG CAIN MD Procedure Category Date Status Time Complete Blood Count LAB 01/09/25 Verified 04:00 Basic Metabolic Panel LAB 01/09/25 Verified 04:00 Magnesium LAB 01/09/25 Verified 04:00 Hemoglobin A1c LAB 01/09/25 Verified 04:00 Thyroid Stimulating LAB 01/09/25 Verified Hormone 04:00 Vitamin D, 25-Hydroxy LAB 01/08/25 Logged 16:44 Date of Service: Jan 08, 2025 Billing Provider: WONG CAIN MD Common Visit Codes: [id number] INP/OBS CARE(HIGH) Secondary Visit Codes: [id number] CARE PLAN 30 MINUTES WONG CAIN MD Jan 08, 2025 16:48
--- NOTE | 2025-01-08 18:58 | DVH ---
XY CHEST TWO VIEWS ROUTINE CLINICAL HISTORY: SOB COMPARISON: None TECHNIQUE: Frontal and lateral view of the chest was obtained FINDINGS: Lines and Tubes: None Lungs: No focal consolidation. Pleura: No effusion. No pneumothorax. Cardiomediastinal contours: Unremarkable Bones: No acute osseous abnormality. IMPRESSION: No acute cardiopulmonary disease.
[2025-01-09 01:00] VITALS: BP 112/44; PULSE 58; RESP 16; TEMP 98; O2SAT 97
[2025-01-09 05:00] VITALS: BP 113/54; PULSE 64; RESP 17; TEMP 98.3; O2SAT 98
[2025-01-09 06:59] LABS: Basophils # (auto) 0 10 ^3/uL (0-0.2); Basophils % (auto) 0.4 % (0.0-2.0); Eosinophils # (auto) 0 10 ^3/uL (0-0.8); Eosinophils % (auto) 1.2 % (0.0-7.0); Hematocrit 32.2 % (41.0-53.0); Hemoglobin 10.8 g/dL (13.5-17.5); Lymphocytes # (auto) 1.1 10 ^3/uL (0.4-5.4); Lymphocytes % (auto) 50.6 % (10.0-50.0); Mean Corpuscular Hemoglobin 35.2 pg (28.0-32.0); Mean Corpuscular Hgb Conc. 33.6 g/dL (32.0-36.0); Mean Corpuscular Volume 104.6 fL (80.0-100.0); Monocytes # (auto) 0.1 10 ^3/uL (0-1.3); Monocytes % (auto) 6.4 % (0.0-12.0); Neutrophils # (auto) 0.9 10 ^3/uL (1.6-8.6); Neutrophils % (auto) 41.4 % (37.0-80.0); Nucleated Red Blood Cells % 0.2 %; Platelet Count (auto) 76 10^3/uL (140-450); Red Blood Cells 3.08 10^6/uL (4.5-5.90); Red Cell Distribution Width 15.7 % (11.8-14.3); White Blood Cell 2.1 10^3/uL (4.4-10.8)
[2025-01-09 07:04] LABS: Calcium 8.6 mg/dL (8.7-10.4); Chloride 110 mmol/L (98-107); Potassium 4.7 mmol/L (3.5-5.1); Sodium 142 mmol/L (136-145)
[2025-01-09 07:05] LABS: Anion Gap 5 (5-15); Carbon Dioxide 27 mmol/L (20-31)
[2025-01-09 07:10] LABS: BUN/Creatinine Ratio 21.8 (10.0-20.0); Blood Urea Nitrogen 19 mg/dL (9-23); Glucose 98 mg/dL (74-106); Magnesium 2.2 mg/dL (1.6-2.6)
[2025-01-09 09:00] VITALS: BP 132/59; PULSE 62; RESP 16; TEMP 98; O2SAT 96
[2025-01-09] MEDS: TAMSULOSIN HYDROCHLORIDE 0.4 MG CAP PO SCH (09:51)
[2025-01-09 13:00] VITALS: BP 134/51; PULSE 67; RESP 18; TEMP 98; O2SAT 95
--- NOTE | 2025-01-09 15:54 | DVHDS2 ---
Discharge Summary Date of Admission Jan 07, 2025 at 11:05 Date of Discharge: Jan 09, 2025 Admitting Diagnosis Dislocation of right hip Labs/Diagnostic Data: Laboratory Results Test 01/09/25 06:10 01/08/25 08:48 01/08/25 05:09 01/07/25 08:30 White Blood Count 2.1 10^3/uL (4.4-10.8) Red Blood Count 3.08 10^6/uL (4.5-5.90) Hemoglobin 10.8 g/dL (13.5-17.5) Hematocrit 32.2 % (41.0-53.0) Mean Corpuscular Volume 104.6 fL (80.0-100.0) Mean Corpuscular Hemoglobin 35.2 pg (28.0-32.0) Mean Corpuscular Hemoglobin Concent 33.6 g/dL (32.0-36.0) Red Cell Distribution Width 15.7 % (11.8-14.3) Platelet Count 76 10^3/uL (140-450) Mean Platelet Volume 9.2 fL (6.9-10.8) Neutrophils (%) (Auto) 41.4 % (37.0-80.0) Lymphocytes (%) (Auto) 50.6 % (10.0-50.0) Monocytes (%) (Auto) 6.4 % (0.0-12.0) Eosinophils (%) (Auto) 1.2 % (0.0-7.0) Basophils (%) (Auto) 0.4 % (0.0-2.0) Neutrophils # (Auto) 0.9 10 ^3/uL (1.6-8.6) Lymphocytes # (Auto) 1.1 10 ^3/uL (0.4-5.4) Monocytes # (Auto) 0.1 10 ^3/uL (0-1.3) Eosinophils # (Auto) 0 10 ^3/uL (0-0.8) Basophils # (Auto) 0 10 ^3/uL (0-0.2) Nucleated Red Blood Cells 0.2 % Sodium Level 142 mmol/L (136-145) Potassium Level 4.7 mmol/L (3.5-5.1) Chloride Level 110 mmol/L (98-107) Carbon Dioxide Level 27 mmol/L (20-31) Anion Gap 5 (5-15) Blood Urea Nitrogen 19 mg/dL (9-23) Creatinine 0.87 mg/dL (0.700-1.30) Glomerular Filtration Rate Calc 87 mL/min (>90) BUN/Creatinine Ratio 21.8 (10.0-20.0) Serum Glucose 98 mg/dL (74-106) Hemoglobin A1c 4.7 % A1C (<5.7) Calcium Level 8.6 mg/dL (8.7-10.4) Magnesium Level 2.2 mg/dL (1.6-2.6) Thyroid Stimulating Hormone (TSH) 4.00 uIU/mL (0.55-4.78) Vitamin D 25-Hydroxy 43.8 ng/mL (30.0-100) Total Bilirubin 2.6 mg/dL (0.2-1.0) Aspartate Amino Transferase (AST) 19 U/L (13-40) Alanine Aminotransferase (ALT) 21 U/L (7-40) Alkaline Phosphatase 83 U/L (46-116) Total Protein 4.8 g/dL (5.7-8.2) Albumin 3.3 g/dL (3.2-4.8) Urine Color Light-yellow (Yellow) Urine Clarity Clear (Clear) Urine pH 6.5 (5.0-9.0) Urine Specific Beecher 1.020 (1.001-1.035) Urine Protein Negative (Negative) Urine Ketones Negative (Negative) Urine Blood Negative /uL (Negative) Urine Nitrite Negative (Negative) Urine Bilirubin Negative (Negative) Urine Urobilinogen Normal mg/dL (Negative) Urine Leukocyte Esterase Negative /uL (Negative) Urine RBC 1 /hpf (0 - 3) Urine Microscopic WBC 1 /HPF (0-3) Urine Squamous Epithelial Cells None seen /hpf (<5) Urine Bacteria None seen /hpf (None Seen) Urine Glucose Normal mg/dL (Normal) Other Laboratory Tests 01/09/25 06:10 Brief Hx & Hospital Course: Patient is a 79-year-old male with history of right hip mL arthroplasty 3 weeks ago. Patient presented to emergency room with right hip pain after an episode where the attempting to stand up from the toilet. Emergency room evaluation, including x-rays imaging, confirmed a dislocation of right hip prosthesis. Orthopedic consultation was requested for further management. Patient underwent closed reduction by Orthopedics. Patient also has some shortness of breath which has since resolved. Condition at Discharge: Poor Final Diagnosis/Problems List Dislocation of right hip- s/p Reduction Acute Resp Failure???- Titrate oxygen off Hypothyroidism- Cont Meds Hypertension- Monitor and adjust meds as needed Multiple myeloma- Outpatient followup Anemia Goals of care discussion >19 mins FULL CODE Discharge Disposition: Home Discharge Instruct/Medications Diet: Cardiac 2g Na,low cholest (2 gm sodium, low cholesterol) Activity: Light activity Follow Up/Referral: [facility] in 1 week Medications: Resume Home meds Discharge Statement: "Patient was advised to return to the ER or call 911 if any headaches, dizziness, shortness of breath, chest pain, abdominal pain, bleeding, fevers, or worsening of medical condition. Patient was counseled about treatment plan, medications, possible side effects, patientverbalized understanding. All questions were answered to the best of my ability. This discharge took greater then 30 minutes in planning, reviewing documentation, counseling the patient, and discussing with other team members." ASSESSMENT ASSESSMENT Assessment Date of Service: Jan 09, 2025 Billing Provider: WONG CAIN MD Common Visit Codes: 33815-IID/OBS DISCH DAY >30min WONG CAIN MD Jan 09, 2025 15:54
[2025-01-09 15:59] VITALS: BP 132/59; PULSE 62; TEMP 36.7
[2025-01-09 16:49] VITALS: BP 113/58; PULSE 65; RESP 17; TEMP 98; O2SAT 96
== END 2025-01-09 16:15 | disposition home or self-care (01) | DRG 559 ==
LOC: ER 08:15 → EDBD 08:15 → OVERFLOW 11:05 → WEST WING 23:41
PROVIDERS: ADMIT Internal Medicine; ATTEND Internal Medicine
PROC: 0SWRXJZ Revision of Synthetic Substitute in Right Hip Joint, Femoral Surface, External Approach (ICD-10-PCS; principal; 2025-01-07)
DX: T84.020A Dislocation of internal right hip prosthesis, initial encounter (principal); J96.00 Acute respiratory failure, unspecified whether with hypoxia or hypercapnia; C90.00 Multiple myeloma not having achieved remission; E03.9 Hypothyroidism, unspecified; I10 Essential (primary) hypertension; D64.9 Anemia, unspecified; Z96.651 Presence of right artificial knee joint; Z79.01 Long term (current) use of anticoagulants; Z79.899 Other long term (current) drug therapy; Y83.8 Other surgical procedures as the cause of abnormal reaction of the patient, or of later complication, without mention of misadventure at the time of the procedure; Y92.89 Other specified places as the place of occurrence of the external cause
CPT/HCPCS: 36415; 71046; 72170; 73501; 80048; 80053; 81001; 82306; 83036; 83735; 84443; 85025; 96374; 96375; 97110; 97116; 97163; G0378; J2405